=== PATIENT | female | born 1945 | race American Indian/Alaskan Native ===

== ENCOUNTER 2016-11-28 07:30 | Emergency (ER) | payer MEDICARE ==
[2016-11-28] MEDS ORDERED: NORCO 5/325 PO ONE (09:43)
--- NOTE | 2016-11-28 09:43 | Emergency Department Report ---
ED Fall HPI - General Chief Complaint: Fall Stated Complaint: INJURY FROM FALL Time Seen by Provider: 11/28/16 09:01 Source: patient, family Mode of arrival: Ambulatory - History of Present Illness Initial Comments: Patient here with family and she reports that she stumbled and fell while stepping down and walking approximately 2 weeks ago. She is complaining the pain in her hips and pelvic area and also complaining the lower back pain. Patient is ambulatory. She denies any blood in the urine or stool. Denies any loss of bowel or bladder control. Denies any head injury. Denies any numbness or tingling to extremities. Denies any chest pain or shortness of breath. 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) Fall Witnessed: yes, by family Place Fall Occurred: home Loss of Consciousness: none Prolonged Down Time?: no Symptoms Prior to Fall: none Location: back, pelvis (pelvis and bilateral hip) Severity: moderate Severity scale (0 -10): 6 Quality: aching Context: tripped/slipped Associated Symptoms: denies: headache, neck pain, numbness, weakness, chest paint, shortness of breath, abdominal pain, hematuria, unable to walk, lightheaded, vertigo, confusion - Related Data Home Medications Medication Instructions Recorded Confirmed Last Taken Clopidogrel [Plavix] 75 mg PO DAILY 09/11/14 07/19/15 02/14/16 Gabapentin 300 mg PO BID 09/11/14 07/19/15 02/19/16 Insulin NPH Hum/Reg Insulin Hm 45 units SQ BID 09/11/14 07/19/15 02/19/16 [HumuLIN 70-30 Vial] Ipratropium/Albuterol Sulfate 1 spray IH QID PRN 07/19/15 07/19/15 02/19/16 [Combivent Respimat] Lisinopril [Zestril TAB] 20 mg PO BID 07/19/15 07/19/15 02/19/16 traMADol [Ultram 50 MG tab] 50 mg PO PRN 07/19/15 07/19/15 02/19/16 Previous Rx's Medication Instructions Recorded Last Taken Type Nitroglycerin [Nitrostat] 0.4 mg SL Q5M #100 tab 09/20/14 12/03/15 Rx Aspirin [Aspirin BABY CHEW TAB] 81 mg PO QDAY #30 tab.chew 09/21/14 02/16/16 Rx Furosemide [Lasix TAB] 20 mg PO QDAY #30 tablet 09/21/14 02/19/16 Rx Lactobacillus Acidophil [Lactinex] 1 each PO TID #30 tablet 07/24/15 02/19/16 Rx Levofloxacin [Levaquin TAB] 750 mg PO QDAY #10 tablet 07/24/15 02/19/16 Rx Metoprolol [Lopressor TAB] 12.5 mg PO BID #30 tablet 07/24/15 02/19/16 Rx Sulfamethoxazole/Trimethoprim 1 each PO BID #20 tablet 07/24/15 02/19/16 Rx [Bactrim DS TAB] metroNIDAZOLE [Flagyl TAB] 500 mg PO Q8H #30 tablet 07/24/15 02/19/16 Rx predniSONE [Deltasone] 5 mg PO QDAY #14 tab 11/28/16 Unknown Rx traMADol [Ultram 50 MG tab] 50 mg PO Q6HR PRN #20 tablet 11/28/16 Unknown Rx Allergies Allergy/AdvReac Type Severity Reaction Status Date / Time atorvastatin calcium Allergy Unknown Verified 11/28/16 08:03 [From Lipitor] Iodinated Contrast Media - Allergy Unknown Verified 11/28/16 08:03 IV Dye Penicillins Allergy Unknown Verified 11/28/16 08:03 tomato Allergy Unknown Verified 11/28/16 08:03 ED Review of Systems ROS: Stated complaint: INJURY FROM FALL Other details as noted in HPI Comment: All other systems reviewed and negative Constitutional: denies: chills, fever Eyes: denies: vision change ENT: denies: ear pain, hearing loss Respiratory: no symptoms reported Cardiovascular: denies: chest pain, palpitations, edema, syncope Gastrointestinal: denies: abdominal pain, nausea, vomiting Genitourinary: denies: urgency, dysuria, frequency, hematuria Musculoskeletal: back pain, arthralgia Skin: denies: rash Neurological: abnormal gait (abnormal gait due to pain in hips). denies: headache, numbness, paresthesias, vertigo ED Past Medical Hx - Past Medical History Previous Medical History?: Yes Hx Hypertension: Yes Hx Heart Attack/AMI: Yes Hx Congestive Heart Failure: Yes Hx Diabetes: Yes Hx GERD: Yes (GERD) Hx Renal Disease: Yes (renal stones) Hx Arthritis: Yes Hx Kidney Stones: Yes Hx COPD: Yes Hx HIV: No - Surgical History Past Surgical History?: Yes Hx Coronary Stent: Yes Hx Open Heart Surgery: Yes (CABG X2) Additional Surgical History: Open heart - Family History Family history: diabetes, hypertension - Social History Smoking Status: Never Smoker Substance Use Type: None - Medications Home Medications: Home Medications Medication Instructions Recorded Confirmed Last Taken Type Clopidogrel [Plavix] 75 mg PO DAILY 09/11/14 07/19/15 02/14/16 History Gabapentin 300 mg PO BID 09/11/14 07/19/15 02/19/16 History Insulin NPH Hum/Reg Insulin Hm 45 units SQ BID 09/11/14 07/19/15 02/19/16 History [HumuLIN 70-30 Vial] Nitroglycerin [Nitrostat] 0.4 mg SL Q5M #100 tab 09/20/14 07/19/15 12/03/15 Rx Aspirin [Aspirin BABY CHEW TAB] 81 mg PO QDAY #30 tab.chew 09/21/14 07/19/15 Rx Furosemide [Lasix TAB] 20 mg PO QDAY #30 tablet 09/21/14 07/19/15 02/19/16 Rx Ipratropium/Albuterol Sulfate 1 spray IH QID PRN 07/19/15 07/19/15 02/19/16 History [Combivent Respimat] Lisinopril [Zestril TAB] 20 mg PO BID 07/19/15 07/19/15 02/19/16 History traMADol [Ultram 50 MG tab] 50 mg PO PRN 07/19/15 07/19/15 02/19/16 History Lactobacillus Acidophil [Lactinex] 1 each PO TID #30 tablet 07/24/15 02/19/16 Rx Levofloxacin [Levaquin TAB] 750 mg PO QDAY #10 tablet 07/24/15 02/19/16 Rx Metoprolol [Lopressor TAB] 12.5 mg PO BID #30 tablet 07/24/15 02/19/16 Rx Sulfamethoxazole/Trimethoprim 1 each PO BID #20 tablet 07/24/15 02/19/16 Rx [Bactrim DS TAB] metroNIDAZOLE [Flagyl TAB] 500 mg PO Q8H #30 tablet 07/24/15 02/19/16 Rx predniSONE [Deltasone] 5 mg PO QDAY #14 tab 11/28/16 Unknown Rx traMADol [Ultram 50 MG tab] 50 mg PO Q6HR PRN #20 tablet 11/28/16 Unknown Rx ED Physical Exam - General Limitations: No Limitations General appearance: alert, in no apparent distress - Head Head exam: Present: atraumatic, normocephalic, normal inspection - Expanded Head Exam Expanded Head exam: Absent: laceration, abrasion, contusion, hematoma, racoon eyes, bustamante's sign, general tenderness, tenderness of temporal artery, CSF rhinorrhea , CSF otorrhea - Eye Eye exam: Present: normal appearance, PERRL, EOMI. Absent: periorbital swelling , periorbital tenderness Pupils: Present: normal accommodation - ENT ENT exam: Present: normal exam, normal orophraynx, mucous membranes moist, TM's normal bilaterally, normal external ear exam - Neck Neck exam: Present: normal inspection, full ROM. Absent: tenderness, meningismus, lymphadenopathy - Respiratory Respiratory exam: Present: normal lung sounds bilaterally. Absent: respiratory distress, chest wall tenderness - Cardiovascular Cardiovascular Exam: Present: regular rate, normal rhythm, normal heart sounds - GI/Abdominal GI/Abdominal exam: Present: soft, normal bowel sounds. Absent: distended, tenderness, guarding, rebound, rigid - Extremities Exam Extremities exam: Present: normal inspection, full ROM, normal capillary refill , other (nontender to palpate in both hips. No shortening of the legs. Patient will good color movement temperature and sensation to extremities. +2 pedal pulses. No neurovascular compromise. Patient able to ambulate with minimal assistance.). Absent: tenderness, pedal edema, joint swelling, calf tenderness - Back Exam Back exam: Present: normal inspection, full ROM. Absent: tenderness, CVA tenderness (R), CVA tenderness (L), muscle spasm, paraspinal tenderness, vertebral tenderness, rash noted - Expanded Back Exam Expanded Back exam: Absent: saddle anesthesia Back exam: Negative Straight Leg Raising: Left, Right - Neurological Exam Neurological exam: Present: alert, oriented X3, abnormal gait (abnormal gait due to pelvic pain), reflexes normal. Absent: motor sensory deficit - Psychiatric Psychiatric exam: Present: normal affect, normal mood - Skin Skin exam: Present: warm, dry, intact, normal color. Absent: rash ED Course Vital Signs 11/28/16 07:54 Temperature 98.8 F Pulse Rate 67 Respiratory 17 Rate Blood Pressure 201/86 O2 Sat by Pulse 100 Oximetry - Reevaluation(s) Reevaluation #1: 11/28/16 11:57 given Mcgregor 5/325 mg one tablet by mouth in emergency room which relieved her pain. ED Medical Decision Making - Radiology Data Radiology results: report reviewed X-ray of pelvic revealed no acute fracture or dislocation. x-ray lumbar spine revealed osteopenia with degenerative changes - Medical Decision Making ED course: I informed patient and her family member that x-ray of her back and pelvis area revealed no acute findings. Told her that she has some arthritis in her lower back along with osteopenia which is a precursor for osteoporosis. Informed patient that she needs to follow-up with her primary care doctor and started taking calcium and vitamin D supplements to prevent progression of osteopenia. Discharge instructions given on fall prevention an elderly, osteopenia, degenerative disc disease. Patient and family states understanding of diagnosis and treatment plan. 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 She has an appointment with her lung doctor in 2 weeks and she ran out. He says she takes 5 mg daily. Patient discharged home with prescription for Ultram and prednisone. Critical care attestation.: If time is entered above; I have spent that time in minutes in the direct care of this critically ill patient, excluding procedure time. ED Disposition Clinical Impression: Arthralgia of multiple sites, Osteopenia, Degenerative disc disease, lumbar Fall, accidental Qualifiers: Encounter type: initial encounter Qualified Code(s): W19.XXXA - Unspecified fall, initial encounter Pain in lower back Qualifiers: Chronicity: unspecified Back pain laterality: bilateral Sciatica presence: without sciatica Qualified Code(s): M54.5 - Low back pain Disposition: DISCHARGED TO HOME OR SELFCARE Is pt being admited?: No Does the pt Need Aspirin: No Condition: Stable Instructions: Degenerative Disc Disease (ED), Fall Prevention for Older Adults (ED), Arthralgia (ED) Additional Instructions: You have a condition called osteopenia which is a precursor for osteoporosis. You will need to start taking calcium and vitamin D and follow-up with primary care physician for management. Please follow-up with orthopedic doctor if he continues to have pain. Prescriptions: predniSONE [Deltasone] 5 mg PO QDAY #14 tab traMADol [Ultram 50 MG tab] 50 mg PO Q6HR PRN #20 tablet PRN Reason: Pain Referrals: PRIMARY CARE, [Primary Care Provider] - 3-5 Days GISELA GARCIA MD [Staff Physician] - 3-5 Days Forms: Accompanied Note
--- NOTE | 2016-11-28 11:47 | XRay Report ---
LUMBOSACRAL SPINE, 3 VIEWS: History: Back pain Findings: Mild osteopenia is suspected. The vertebral bodies, disk spaces and posterior elements are intact. No compression deformity or malalignment. Mild multilevel degenerative disc disease and facet arthropathy are noted. The SI joints are symmetric and unremarkable. Impression: No acute injury is identified. Osteopenia. Degenerative changes.
--- NOTE | 2016-11-28 11:47 | XRay Report ---
AP PELVIS: History: Fall with pelvic and hip pain. AP view of the pelvis shows normal pelvic contour and soft tissues. The hips are symmetric and within normal limits as are the sacroiliac joints. IMPRESSION: No acute injury is appreciated.
[2016-11-28 11:56] VITALS: BP 209/84
== END 2016-11-28 12:35 | disposition home or self-care (01) ==
LOC: ED 07:30
DX: M51.36 Other intervertebral disc degeneration, lumbar region (principal); M85.80 Other specified disorders of bone density and structure, unspecified site; M25.50 Pain in unspecified joint; I10 Essential (primary) hypertension; I25.2 Old myocardial infarction; I50.9 Heart failure, unspecified; E11.9 Type 2 diabetes mellitus without complications; K21.9 Gastro-esophageal reflux disease without esophagitis; M19.90 Unspecified osteoarthritis, unspecified site; J44.9 Chronic obstructive pulmonary disease, unspecified; Z95.1 Presence of aortocoronary bypass graft; W18.39XA Other fall on same level, initial encounter; Y93.89 Activity, other specified; Y99.8 Other external cause status; Y92.098 Other place in other non-institutional residence as the place of occurrence of the external cause
CPT/HCPCS: 72100; 72170; 99283

== ENCOUNTER 2017-09-11 08:04 | Emergency (ER) | payer MEDICARE ==
[2017-09-11 09:06] LABS: Basophils % (Auto) 0.4 % (0.0-1.8); Eosinophils % (Auto) 1.4 % (0.0-4.3); Hematocrit 41.8 % (30.3-42.9); Hemoglobin 13.4 gm/dl (10.1-14.3); Mean Corpuscular HGB Conc 32 % (30-34); Mean Corpuscular Hemoglobin 26 pg (28-32); Mean Corpuscular Volume 81 fl (79-97); Platelet Count 178 K/mm3 (140-440); Red Blood Count 5.16 M/mm3 (3.65-5.03); Red Cell Distribution Width 14.8 % (13.2-15.2)
[2017-09-11 09:16] LABS: INR 0.83 (0.87-1.13)
[2017-09-11 09:17] LABS: Partial Thromboplastin Time 23.7 Sec. (24.2-36.6)
[2017-09-11 09:22] LABS: Calcium 8.5 mg/dL (8.4-10.2); Chloride 103.7 mmol/L (98-107); Potassium 3.4 mmol/L (3.6-5.0)
--- NOTE | 2017-09-11 10:12 | Cat Scan Report ---
CT HEAD WITHOUT CONTRAST: 09/11/17 09:57 CLINICAL: Dizziness. On blood thinners. TECHNIQUE: 2.5-mm noncontrast scans. COMPARISON:None FINDINGS: The ventricles and sulci are normal for age.Moderate bilateral periventricular white matter hypodensities. Small right frontal white matter chronic lacunar infarct. A right thalamic lacunar infarct is of uncertain age. No mass or mass effect. No hemorrhage, edema or extra-axial collection. The sinuses are clear. Normal orbits and soft tissues. The calvarium and skull base are intact. IMPRESSION: A right thalamic lacunar infarct of uncertain age. Chronic right frontal white matter or infarct and moderate chronic white matter microangiopathy. No hemorrhage.
--- NOTE | 2017-09-11 10:58 | XRay Report ---
XRAY RIGHT FEMUR TWO VIEWS: 09/11/17 08:04:00 CLINICAL: Weakness and unable to bear weight on the right leg. FINDINGS: Normal alignment at the hip and knee. Moderate osteoarthritis of the right hip. No fracture or dislocation. Vascular calcifications in otherwise normal soft tissues. The knee joint is unremarkable. No fracture. IMPRESSION: Moderate osteoarthritis of the right hip. The femur is otherwise normal.
--- NOTE | 2017-09-11 11:00 | XRay Report ---
XRAY RIGHT TIBIA AND FIBULA TWO VIEWS: 09/11/17 08:04:00 CLINICAL: Weakness and unable to bear weight. FINDINGS: No fracture or dislocation. Normal alignment at the knee and at the ankle. No knee joint effusion. Surgical clips in the medial soft tissues.No soft tissue air in the soft tissue edema. IMPRESSION: Negative study.
[2017-09-11] MEDS ORDERED: K-DUR PO ONE (12:13)
--- NOTE | 2017-09-11 12:55 | Cat Scan Report ---
CT CERVICAL SPINE WITHOUT CONTRAST:09/11/17 08:04:00 CLINICAL: Near syncope and fall with head injury. TECHNIQUE: Volumetric acquisition and 1.25-mm scan reconstructions without contrast. Sagittal and coronal reformats were performed. FINDINGS: Normal vertebral body height, alignment and disk spaces. No fracture or subluxation. Minimal degenerative change. No apparent disc protrusions or bulges.Normal soft tissues and airway. IMPRESSION: Negative with no apparent traumatic injury.
--- NOTE | 2017-09-11 13:27 | XRay Report ---
X-RAY AP PELVIS ONE VIEW: 09/11/17 08:04:00 CLINICAL: Pain. FINDINGS: The pelvic bones are intact. Moderate arthritis of the hips. Bilateral SI joint sclerosis with no erosions. No fracture or dislocation. Vascular calcifications. IMPRESSION: Moderate bilateral hip arthritis. Bilateral sacroiliitis without erosions.
--- NOTE | 2017-09-11 13:55 | Emergency Department Report ---
ED Dizziness HPI - General Chief Complaint: Neuro Symptoms/Deficit Stated Complaint: FALL Time Seen by Provider: 09/11/17 11:23 Source: patient Mode of arrival: Ambulatory Limitations: No Limitations - History of Present Illness Initial Comments: 71-year-old female with a past medical history of CABG, CHF, COPD, CVA, diabetes , GERD, and hypertension presents to the hospital with complaints of near syncopal episode with fall. Patient lives alone and her son came to visit. Upon ambulating to the door to let him and she felt dizzy to the point of falling and striking the back of her head on the door. Her son witnessed the episode and no LOC reported. Upon trying to stand patient felt like a pulling sensation in her right leg like it was giving out on her and she is complaining of mild headache after fall to the back of her head. Patient complains of chronic intermittent chest pain at is unchanged from her baseline. Patient denies shortness of breath, nausea, vomiting, or diaphoresis. Patient saw her outpatient section crews activities clerk wanted September 08 and had her metoprolol ER increased from 25 mg to 50 mg. Since this increased patient has been sleeping more and having dizzy episodes. Butt Presser group: Dr. Davin Gaming with [facility]. - Related Data Home Medications Medication Instructions Recorded Confirmed Last Taken Clopidogrel [Plavix] 75 mg PO DAILY 09/11/14 07/19/15 02/14/16 Gabapentin 300 mg PO BID 09/11/14 07/19/15 02/19/16 Insulin NPH Hum/Reg Insulin Hm 45 units SQ BID 09/11/14 07/19/15 02/19/16 [HumuLIN 70-30 Vial] Ipratropium/Albuterol Sulfate 1 spray IH QID PRN 07/19/15 07/19/15 02/19/16 [Combivent Respimat] Lisinopril [Zestril TAB] 20 mg PO BID 07/19/15 07/19/15 02/19/16 traMADol [Ultram 50 MG tab] 50 mg PO PRN 07/19/15 07/19/15 02/19/16 Previous Rx's Medication Instructions Recorded Last Taken Type Nitroglycerin [Nitrostat] 0.4 mg SL Q5M #100 tab 09/20/14 12/03/15 Rx Aspirin [Aspirin BABY CHEW TAB] 81 mg PO QDAY #30 tab.chew 09/21/14 02/16/16 Rx Furosemide [Lasix TAB] 20 mg PO QDAY #30 tablet 09/21/14 02/19/16 Rx Lactobacillus Acidophil [Lactinex] 1 each PO TID #30 tablet 07/24/15 02/19/16 Rx Levofloxacin [Levaquin TAB] 750 mg PO QDAY #10 tablet 07/24/15 02/19/16 Rx Metoprolol [Lopressor TAB] 12.5 mg PO BID #30 tablet 07/24/15 02/19/16 Rx Sulfamethoxazole/Trimethoprim 1 each PO BID #20 tablet 07/24/15 02/19/16 Rx [Bactrim DS TAB] metroNIDAZOLE [Flagyl TAB] 500 mg PO Q8H #30 tablet 07/24/15 02/19/16 Rx predniSONE [Deltasone] 5 mg PO QDAY #14 tab 11/28/16 Unknown Rx traMADol [Ultram 50 MG tab] 50 mg PO Q6HR PRN #20 tablet 11/28/16 Unknown Rx Allergies Allergy/AdvReac Type Severity Reaction Status Date / Time atorvastatin calcium Allergy Unknown Verified 11/28/16 08:03 [From Lipitor] Iodinated Contrast- Oral and Allergy Unknown Verified 11/28/16 08:03 IV Dye [Iodinated Contrast Media - IV Dye] Penicillins Allergy Unknown Verified 11/28/16 08:03 tomato Allergy Unknown Verified 11/28/16 08:03 ED Review of Systems ROS: Stated complaint: FALL Other details as noted in HPI Comment: All other systems reviewed and negative Other: Constitutional: No fevers chills Eyes: No eye pain visual changes ENT: No ear pain or throat pain Neck: Denies pain Respiratory: Denies cough wheezing shortness of breath Cardiovascular: Denies palpitations GI: Denies abdominal pain, nausea, vomiting, diarrhea : Denies dysuria Musculoskeletal: As per HPI Skin: Denies rash, lesions, erythema Neurologic: Denies numbness, weakness Psychiatric: Denies suicidal ideation, hallucinations ED Past Medical Hx - Past Medical History Previous Medical History?: Yes Hx Hypertension: Yes Hx CVA: Yes Hx Heart Attack/AMI: Yes Hx Congestive Heart Failure: Yes Hx Diabetes: Yes Hx GERD: Yes (GERD) Hx Liver Disease: No Hx Renal Disease: Yes (renal stones) Hx Arthritis: Yes Hx Kidney Stones: Yes Hx Asthma: No Hx COPD: Yes Hx HIV: No - Surgical History Past Surgical History?: Yes Hx Coronary Stent: Yes Hx Open Heart Surgery: Yes (CABG X2) Additional Surgical History: Open heart - Social History Smoking Status: Never Smoker Substance Use Type: None - Medications Home Medications: Home Medications Medication Instructions Recorded Confirmed Last Taken Type Clopidogrel [Plavix] 75 mg PO DAILY 09/11/14 07/19/15 02/14/16 History Gabapentin 300 mg PO BID 09/11/14 07/19/15 02/19/16 History Insulin NPH Hum/Reg Insulin Hm 45 units SQ BID 09/11/14 07/19/15 02/19/16 History [HumuLIN 70-30 Vial] Nitroglycerin [Nitrostat] 0.4 mg SL Q5M #100 tab 09/20/14 07/19/15 12/03/15 Rx Aspirin [Aspirin BABY CHEW TAB] 81 mg PO QDAY #30 tab.chew 09/21/14 07/19/15 Rx Furosemide [Lasix TAB] 20 mg PO QDAY #30 tablet 09/21/14 07/19/15 02/19/16 Rx Ipratropium/Albuterol Sulfate 1 spray IH QID PRN 07/19/15 07/19/15 02/19/16 History [Combivent Respimat] Lisinopril [Zestril TAB] 20 mg PO BID 07/19/15 07/19/15 02/19/16 History traMADol [Ultram 50 MG tab] 50 mg PO PRN 07/19/15 07/19/15 02/19/16 History Lactobacillus Acidophil [Lactinex] 1 each PO TID #30 tablet 07/24/15 02/19/16 Rx Levofloxacin [Levaquin TAB] 750 mg PO QDAY #10 tablet 07/24/15 02/19/16 Rx Metoprolol [Lopressor TAB] 12.5 mg PO BID #30 tablet 07/24/15 02/19/16 Rx Sulfamethoxazole/Trimethoprim 1 each PO BID #20 tablet 07/24/15 02/19/16 Rx [Bactrim DS TAB] metroNIDAZOLE [Flagyl TAB] 500 mg PO Q8H #30 tablet 07/24/15 02/19/16 Rx predniSONE [Deltasone] 5 mg PO QDAY #14 tab 11/28/16 Unknown Rx traMADol [Ultram 50 MG tab] 50 mg PO Q6HR PRN #20 tablet 11/28/16 Unknown Rx ED Physical Exam - General Limitations: No Limitations - Other Other exam information: General: No limitations, patient is alert in no acute distress Head exam: Atraumatic, normocephalic Eyes exam: Normal appearance, pupils equal reactive to light, extraocular movements intact ENT: Moist mucous membrane, normal oropharynx Neck exam: Normal inspection, full range of motion, no meningismus nontender Respiratory exam: Clear to auscultation bilateral, no wheezes, rales, crackles Cardiovascular: Normal rate and rhythm, normal heart sounds, positive sternotomy scar Abdomen: Soft, nondistended, and nontender, with normal bowel sounds, no rebound, or guarding Extremity: Full range of motion normal inspection no deformity, full range of motion of hip, knee, and ankle without discomfort. Mild tenderness to right thigh area. No deformity. Back: Normal Inspection, full range of motion, no tenderness Neurologic: Alert, oriented x3, cranial nerves intact, no motor or sensory deficit Psychiatric: normal affect, normal mood Skin: Warm, dry, intact ED Course Vital Signs 09/11/17 09/11/17 09:03 11:47 Temperature 98.4 F Pulse Rate 96 H 70 Respiratory 16 18 Rate Blood Pressure 168/61 192/65 [Left] O2 Sat by Pulse 100 100 Oximetry - Reevaluation(s) Reevaluation #1: 09/11/17 13:59 Awaiting urine collection and patient refused catheterization ED Medical Decision Making - Lab Data Result diagrams: 09/11/17 08:53 09/11/17 08:53 Lab Results 09/11/17 09/11/17 09/11/17 Range/Units 08:53 08:53 08:53 WBC 9.0 (4.5-11.0) K/mm3 RBC 5.16 H (3.65-5.03) M/mm3 Hgb 13.4 (10.1-14.3) gm/dl Hct 41.8 (30.3-42.9) % MCV 81 (79-97) fl MCH 26 L (28-32) pg MCHC 32 (30-34) % RDW 14.8 (13.2-15.2) % Plt Count 178 (140-440) K/mm3 Lymph % (Auto) 28.2 (13.4-35.0) % [place] % (Auto) 8.0 H (0.0-7.3) % Eos % (Auto) 1.4 (0.0-4.3) % Baso % (Auto) 0.4 (0.0-1.8) % Lymph # 2.5 (1.2-5.4) K/mm3 [place] # 0.7 (0.0-0.8) K/mm3 Eos # 0.1 (0.0-0.4) K/mm3 Baso # 0.0 (0.0-0.1) K/mm3 Seg Neutrophils % 62.0 (40.0-70.0) % Seg Neutrophils # 5.5 (1.8-7.7) K/mm3 PT 11.8 L (12.2-14.9) Sec. INR 0.83 L (0.87-1.13) APTT 23.7 L (24.2-36.6) Sec. Sodium 142 (137-145) mmol/L Potassium 3.4 L (3.6-5.0) mmol/L Chloride 103.7 (98-107) mmol/L Carbon Dioxide 28 (22-30) mmol/L Anion Gap 14 mmol/L BUN 17 (7-17) mg/dL Creatinine 1.3 H (0.7-1.2) mg/dL Estimated GFR 49 ml/min BUN/Creatinine Ratio 13 % Glucose 65 (65-100) mg/dL Calcium 8.5 (8.4-10.2) mg/dL Magnesium (1.7-2.3) mg/dL Troponin T (0.00-0.029) ng/mL 09/11/17 09/11/17 Range/Units 08:53 08:53 WBC (4.5-11.0) K/mm3 RBC (3.65-5.03) M/mm3 Hgb (10.1-14.3) gm/dl Hct (30.3-42.9) % MCV (79-97) fl MCH (28-32) pg MCHC (30-34) % RDW (13.2-15.2) % Plt Count (140-440) K/mm3 Lymph % (Auto) (13.4-35.0) % [place] % (Auto) (0.0-7.3) % Eos % (Auto) (0.0-4.3) % Baso % (Auto) (0.0-1.8) % Lymph # (1.2-5.4) K/mm3 [place] # (0.0-0.8) K/mm3 Eos # (0.0-0.4) K/mm3 Baso # (0.0-0.1) K/mm3 Seg Neutrophils % (40.0-70.0) % Seg Neutrophils # (1.8-7.7) K/mm3 PT (12.2-14.9) Sec. INR (0.87-1.13) APTT (24.2-36.6) Sec. Sodium (137-145) mmol/L Potassium (3.6-5.0) mmol/L Chloride (98-107) mmol/L Carbon Dioxide (22-30) mmol/L Anion Gap mmol/L BUN (7-17) mg/dL Creatinine (0.7-1.2) mg/dL Estimated GFR ml/min BUN/Creatinine Ratio % Glucose (65-100) mg/dL Calcium (8.4-10.2) mg/dL Magnesium 2.10 (1.7-2.3) mg/dL Troponin T < 0.010 (0.00-0.029) ng/mL - EKG Data -: EKG Interpreted by Me (old anterolateral infarct, inferior infarct) EKG shows normal: sinus rhythm, axis (264), QRS complexes (96), ST-T waves ( lateral T-wave inversion) Rate: normal - Radiology Data Radiology results: report reviewed Read by radiologist CT cervical spine: No acute findings X-ray pelvis: Moderate bilateral hip arthritis. Bilateral sacroiliitis without erosions CT head non-contrast: A right thalamus lacunar infarct of uncertain age. Chronic right frontal white matter or infarct in moderate chronic white matter microangiopathic. No hemorrhage X-ray right femur: Moderate osteoarthritis of the right hip. Otherwise normal Right tib-fib x-ray: Negative study - Medical Decision Making Plan to admit patient to the hospital for near syncopal episode with associated fall. Episodes of dizziness corresponds with increased metoprolol dose. EKG shows mild bradycardia with a heart rate of 59 but vital signs reflect a heart rate above 60. No signs of hypotension. Patient received a by mouth dose of potassium for mild hypokalemia Patient refuses admission. I explained my concern about her near syncopal episode and possible medication reaction. Patient states she wants to go home. 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 Urine was not obtained prior to leaving the department. Patient notified a risk of worsening symptoms, syncope, heart arrhythmia, and possible . - Differential Diagnosis UTI, anemia, bradycardia, IN, unstable angina, ICH, fracture, contusion Critical Care Time: No Critical care attestation.: If time is entered above; I have spent that time in minutes in the direct care of this critically ill patient, excluding procedure time. ED Disposition Clinical Impression: Near syncope, Hx of CABG, Diabetes, Hypokalemia, HTN (hypertension) Disposition: LEFT AGAINST MED ADVICE Is pt being admited?: No Condition: Stable Instructions: Hypertension (ED), Lightheadedness (ED), Hypokalemia (ED) Additional Instructions: You have refused admission at this time. It is very important that you will up with your primary care doctor and section crews activities clerk as soon as possible for further treatment. Return if symptoms worsen Referrals: PRIMARY MD BETSY [Primary Care Provider] - 24 Hours LUIS GAMING MD [Staff Physician] - 24 Hours Time of Disposition: 14:04 (Dr steel/hosp)
[2017-09-11] MEDS ORDERED: NORCO 5/325 PO ONE (15:15)
[2017-09-11 15:31] VITALS: BP 197/83
== END 2017-09-11 15:35 | disposition left against medical advice (07) ==
LOC: ED 08:04
DX: R55 Syncope and collapse (principal); E87.6 Hypokalemia; I13.0 Hypertensive heart and chronic kidney disease with heart failure and stage 1 through stage 4 chronic kidney disease, or unspecified chronic kidney disease; E11.22 Type 2 diabetes mellitus with diabetic chronic kidney disease; N18.9 Chronic kidney disease, unspecified; I50.9 Heart failure, unspecified; I25.2 Old myocardial infarction; M19.90 Unspecified osteoarthritis, unspecified site; J44.9 Chronic obstructive pulmonary disease, unspecified; Z86.73 Personal history of transient ischemic attack (TIA), and cerebral infarction without residual deficits; Z95.1 Presence of aortocoronary bypass graft; Z95.818 Presence of other cardiac implants and grafts; Z88.8 Allergy status to other drugs, medicaments and biological substances; Z91.041 Radiographic dye allergy status
CPT/HCPCS: 36415; 70450; 72125; 72170; 80048; 83735; 84484; 85025; 85610; 85730; 93005; 93010; 99284

== ENCOUNTER 2017-10-06 13:32 | Observation (INO) | payer MEDICARE ==
[2017-10-06] MEDS ORDERED: NACL 0.9% 1000 ML 1,000 ML IV ONE ×2 (13:35→13:37)
--- NOTE | 2017-10-06 13:46 | Emergency Department Report ---
ED Chest Pain HPI - General Chief Complaint: Chest Pain Stated Complaint: STEMI Time Seen by Provider: 10/06/17 13:35 Source: patient, EMS Mode of arrival: Stretcher Limitations: No Limitations - History of Present Illness Initial Comments: This is a 71-year-old [place] female presents to the emergency department by EMS from home with complaint of chest pain has been going on since 8 AM this morning. It is a crushing chest pain sensation that is left sided. The patient has some chronic intermittent chest pains but it worsened this morning. It is associated with some nausea and vomiting and some shortness of breath. She has a history of CHF, hypertension, hyperlipidemia, diabetes and coronary artery disease with previous PR and bypass surgery. She follows with [facility] cardiology. She received an aspirin in route. She denies any tobacco or illicit drug use or abuse. - Related Data Home Medications Medication Instructions Recorded Confirmed Last Taken Clopidogrel [Plavix] 75 mg PO DAILY 09/11/14 07/19/15 02/14/16 Gabapentin 300 mg PO BID 09/11/14 07/19/15 02/19/16 Insulin NPH Hum/Reg Insulin Hm 45 units SQ BID 09/11/14 07/19/15 02/19/16 [HumuLIN 70-30 Vial] Ipratropium/Albuterol Sulfate 1 spray IH QID PRN 07/19/15 07/19/15 02/19/16 [Combivent Respimat] Lisinopril [Zestril TAB] 20 mg PO BID 07/19/15 07/19/15 02/19/16 traMADol [Ultram 50 MG tab] 50 mg PO PRN 07/19/15 07/19/15 02/19/16 Previous Rx's Medication Instructions Recorded Last Taken Type Nitroglycerin [Nitrostat] 0.4 mg SL Q5M #100 tab 09/20/14 12/03/15 Rx Aspirin [Aspirin BABY CHEW TAB] 81 mg PO QDAY #30 tab.chew 09/21/14 02/16/16 Rx Furosemide [Lasix TAB] 20 mg PO QDAY #30 tablet 09/21/14 02/19/16 Rx Lactobacillus Acidophil [Lactinex] 1 each PO TID #30 tablet 07/24/15 02/19/16 Rx Levofloxacin [Levaquin TAB] 750 mg PO QDAY #10 tablet 07/24/15 02/19/16 Rx Metoprolol [Lopressor TAB] 12.5 mg PO BID #30 tablet 07/24/15 02/19/16 Rx Sulfamethoxazole/Trimethoprim 1 each PO BID #20 tablet 07/24/15 02/19/16 Rx [Bactrim DS TAB] metroNIDAZOLE [Flagyl TAB] 500 mg PO Q8H #30 tablet 07/24/15 02/19/16 Rx predniSONE [Deltasone] 5 mg PO QDAY #14 tab 11/28/16 Unknown Rx traMADol [Ultram 50 MG tab] 50 mg PO Q6HR PRN #20 tablet 11/28/16 Unknown Rx Allergies Allergy/AdvReac Type Severity Reaction Status Date / Time atorvastatin calcium Allergy Unknown Verified 10/06/17 13:37 [From Lipitor] Iodinated Contrast- Oral and Allergy Unknown Verified 10/06/17 13:37 IV Dye [Iodinated Contrast Media - IV Dye] Penicillins Allergy Unknown Verified 10/06/17 13:37 tomato Allergy Unknown Verified 10/06/17 13:37 Heart Score - HEART Score History: Highly suspicious EKG: Significant ST-depression Age: > 65 Risk factors: > 3 risk factors or hx of atherosclerotic disease Troponin: > 3x normal limit HEART Score: 10 - Critical Actions Critical Actions: >7 pts:50-65% risk of adverse cardiac event. Early invasive measures ED Review of Systems ROS: Stated complaint: STEMI Other details as noted in HPI Comment: All other systems reviewed and negative Constitutional: denies: chills, fever Eyes: denies: eye pain, eye discharge, vision change ENT: denies: ear pain, throat pain Respiratory: shortness of breath. denies: cough Cardiovascular: chest pain. denies: palpitations Gastrointestinal: nausea, vomiting. denies: abdominal pain Genitourinary: denies: urgency, dysuria, discharge Musculoskeletal: denies: back pain, joint swelling, arthralgia Skin: denies: rash, lesions Neurological: denies: headache, weakness, paresthesias ED Past Medical Hx - Past Medical History Hx Hypertension: Yes Hx CVA: Yes Hx Heart Attack/AMI: Yes Hx Congestive Heart Failure: Yes Hx Diabetes: Yes Hx GERD: Yes (GERD) Hx Liver Disease: No Hx Renal Disease: Yes (renal stones) Hx Arthritis: Yes Hx Kidney Stones: Yes Hx Asthma: No Hx COPD: Yes Hx HIV: No - Surgical History Hx Coronary Stent: Yes Hx Open Heart Surgery: Yes (CABG X2) Additional Surgical History: Open heart - Social History Smoking Status: Never Smoker Substance Use Type: None - Medications Home Medications: Home Medications Medication Instructions Recorded Confirmed Last Taken Type Clopidogrel [Plavix] 75 mg PO DAILY 09/11/14 07/19/15 02/14/16 History Gabapentin 300 mg PO BID 09/11/14 07/19/15 02/19/16 History Insulin NPH Hum/Reg Insulin Hm 45 units SQ BID 09/11/14 07/19/15 02/19/16 History [HumuLIN 70-30 Vial] Nitroglycerin [Nitrostat] 0.4 mg SL Q5M #100 tab 09/20/14 07/19/15 12/03/15 Rx Aspirin [Aspirin BABY CHEW TAB] 81 mg PO QDAY #30 tab.chew 09/21/14 07/19/15 Rx Furosemide [Lasix TAB] 20 mg PO QDAY #30 tablet 09/21/14 07/19/15 02/19/16 Rx Ipratropium/Albuterol Sulfate 1 spray IH QID PRN 07/19/15 07/19/15 02/19/16 History [Combivent Respimat] Lisinopril [Zestril TAB] 20 mg PO BID 07/19/15 07/19/15 02/19/16 History traMADol [Ultram 50 MG tab] 50 mg PO PRN 07/19/15 07/19/15 02/19/16 History Lactobacillus Acidophil [Lactinex] 1 each PO TID #30 tablet 07/24/15 02/19/16 Rx Levofloxacin [Levaquin TAB] 750 mg PO QDAY #10 tablet 07/24/15 02/19/16 Rx Metoprolol [Lopressor TAB] 12.5 mg PO BID #30 tablet 07/24/15 02/19/16 Rx Sulfamethoxazole/Trimethoprim 1 each PO BID #20 tablet 07/24/15 02/19/16 Rx [Bactrim DS TAB] metroNIDAZOLE [Flagyl TAB] 500 mg PO Q8H #30 tablet 07/24/15 02/19/16 Rx predniSONE [Deltasone] 5 mg PO QDAY #14 tab 11/28/16 Unknown Rx traMADol [Ultram 50 MG tab] 50 mg PO Q6HR PRN #20 tablet 11/28/16 Unknown Rx ED Physical Exam - General Limitations: No Limitations - Other Other exam information: GENERAL: The patient is well-developed well-nourished. HENT: Normocephalic. Atraumatic. Patient has moist mucous membranes. EYES: Extraocular motions are intact. Pupils equal reactive to light bilaterally. NECK: Supple. Trachea is midline. CHEST/LUNGS: Clear to auscultation. There is no respiratory distress noted. HEART/CARDIOVASCULAR: Regular. There is no tachycardia. There is no murmur. ABDOMEN: Abdomen is soft, nontender. Patient has normal bowel sounds. There is no abdominal distention. SKIN: Skin is warm and dry. NEURO: The patient is awake, alert, and oriented. The patient is cooperative. The patient has no focal neurologic deficits. The patient has normal speech. MUSCULOSKELETAL: There is no tenderness or deformity. There is no limitation range of motion. There is no evidence of acute injury. ED Course Vital Signs 10/06/17 10/06/17 10/06/17 13:38 15:06 15:15 Temperature 97.8 F 97.6 F Pulse Rate 58 L 52 L 54 L Respiratory 20 11 L 10 L Rate Blood Pressure 175/79 120/60 138/65 O2 Sat by Pulse 96 96 94 Oximetry 10/06/17 10/06/17 10/06/17 15:20 15:25 15:30 Temperature Pulse Rate 54 L 53 L 53 L Respiratory 10 L 11 L 11 L Rate Blood Pressure 138/65 153/75 153/75 O2 Sat by Pulse 94 93 93 Oximetry 10/06/17 10/06/17 15:45 16:59 Temperature Pulse Rate 57 L 58 L Respiratory 14 Rate Blood Pressure 157/58 145/75 O2 Sat by Pulse 94 89 Oximetry - Consultations Consultation #1: 10/06/17 13:44 Dr Martinez happens to be in the ED when Code STEMI called. He is unsure if EKG looks like a true STEMI but plans to take her to the manufacturing laborer immediately. KAVON score - Kavon Score Age > 65: (1) Yes Aspirin use within the Past 7 Days: (0) No 3 or more CAD Risk Factors: (1) Yes 2 or more Angina events in past 24 hrs: (1) Yes Known CAD with more than 50% Stenosis: (0) No Elevated Cardiac Markers: (1) Yes ST Deviation Greater than 0.5mm: (1) Yes KAVON Score: 5 ED Medical Decision Making - Lab Data Result diagrams: 10/06/17 17:19 10/06/17 13:32 - EKG Data -: EKG Interpreted by Me EKG shows normal: sinus rhythm, axis (left axis deviation), intervals ( prolonged QTC), QRS complexes (LVH, inferior Q waves), ST-T waves (there is some ST elevation to the inferior leads with very mild anterior depression) Rate: normal - EKG Data When compared to previous EKG there are: changes noted (previous inferior q waves unchanged, but concerning for acute STEMI) Interpretation: acute PR - Radiology Data Radiology results: image reviewed interpreted by me: Chest x-ray does not show any acute process. There are no pleural effusions, obvious pneumonia and there is no pneumothorax. - Medical Decision Making The patient presented with acute on chronic chest pain but describes the chest pain this morning as being much more intense and "crushing." EKG showed concern for inferior wall ST elevation PR. Code STEMI was called and the patient was taken to Litigation Secretary. It does not appears that they saw any significant vessel disease that required stenting or ballooning. First troponin was negative but the second troponin was elevated at 0.17. Patient admitted by the cardiology service. - Differential Diagnosis STEMI, NSTEMI, PE, Pneumonia Critical Care Time: No Critical care attestation.: If time is entered above; I have spent that time in minutes in the direct care of this critically ill patient, excluding procedure time. ED Disposition Clinical Impression: Myocardial infarction Qualifiers: Myocardial infarction ST status: ST elevation myocardial infarction Involved coronary artery: unspecified coronary artery Qualified Code(s): I21.3 - ST elevation (STEMI) myocardial infarction of unspecified site CAD (coronary artery disease) Qualifiers: Coronary Disease-Associated Artery/Lesion type: unspecified vessel or lesion type [place] vs. transplanted heart: [place] heart Associated angina: angina presence unspecified Qualified Code(s): I25.10 - Atherosclerotic heart disease of [place] coronary artery without angina pectoris Chest pain Qualifiers: Chest pain type: chest pain due to myocardial ischemia Disposition: OP ADMIT IP TO THIS HOSP Is pt being admited?: Yes Condition: Fair Time of Disposition: 19:14
[2017-10-06 13:48] LABS: Basophils % (Auto) 0.2 % (0.0-1.8); Eosinophils # (Auto) 0.1 K/mm3 (0.0-0.4); Eosinophils % (Auto) 1.1 % (0.0-4.3); Hematocrit 41.8 % (30.3-42.9); Hemoglobin 13.5 gm/dl (10.1-14.3); Lymphocytes # (Auto) 2.1 K/mm3 (1.2-5.4); Lymphocytes % (Auto) 29.8 % (13.4-35.0); Mean Corpuscular HGB Conc 32 % (30-34); Mean Corpuscular Hemoglobin 26 pg (28-32); Mean Corpuscular Volume 81 fl (79-97); Monocytes # (Auto) 0.7 K/mm3 (0.0-0.8); Monocytes % (Auto) 9.9 % (0.0-7.3); Platelet Count 172 K/mm3 (140-440); Red Blood Count 5.15 M/mm3 (3.65-5.03); Red Cell Distribution Width 15.7 % (13.2-15.2)
[2017-10-06] MEDS ORDERED: HEPARIN/NS 5000 UNIT/500ML(CATH LAB) 1,000 ML IR ONE (13:51)
[2017-10-06] MEDS ORDERED: NACL 0.9% 1000 ML 0 ML ONE (13:51)
[2017-10-06] MEDS ORDERED: HEPARIN 10,000 UNITS/10 ML ONE ×2 (13:51→23:03)
[2017-10-06] MEDS ORDERED: XYLOCAINE 2% INFILTRATI ONE (13:52)
--- NOTE | 2017-10-06 13:53 | History and Physical Report ---
History of Present Illness Date of examination: 10/06/17 Date of admission: 10/06/17 Chief complaint: chest pain History of present illness: The patient is a 71 year old female who is followed by Dr. Mccullough in the office with a history of CAD s/p CABG, HTN, DM, HLD who presented with complaints of chest pain ongoing since yesterday but worse today. It is a crushing chest pain sensation that is left sided. It is associated with some nausea and vomiting and some shortness of breath. EKG showed sinus rhythm with inferior ST elevation and mild anterior depression. 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 Martinez on an emergent basis. Past History Past Medical History: CAD, diabetes, hypertension, hyperlipidemia Past Surgical History: CABG Social history: denies: smoking, alcohol abuse, prescription drug abuse Family history: no significant family history Medications and Allergies Allergies Allergy/AdvReac Type Severity Reaction Status Date / Time atorvastatin calcium Allergy Unknown Verified 10/06/17 13:37 [From Lipitor] Iodinated Contrast- Oral and Allergy Unknown Verified 10/06/17 13:37 IV Dye [Iodinated Contrast Media - IV Dye] Penicillins Allergy Unknown Verified 10/06/17 13:37 tomato Allergy Unknown Verified 10/06/17 13:37 Home Medications Medication Instructions Recorded Confirmed Last Taken Type Clopidogrel [Plavix] 75 mg PO DAILY 09/11/14 07/19/15 02/14/16 History Gabapentin 300 mg PO BID 09/11/14 07/19/15 02/19/16 History Insulin NPH Hum/Reg Insulin Hm 45 units SQ BID 09/11/14 07/19/15 02/19/16 History [HumuLIN 70-30 Vial] Nitroglycerin [Nitrostat] 0.4 mg SL Q5M #100 tab 09/20/14 07/19/15 12/03/15 Rx Aspirin [Aspirin BABY CHEW TAB] 81 mg PO QDAY #30 tab.chew 09/21/14 07/19/15 Rx Furosemide [Lasix TAB] 20 mg PO QDAY #30 tablet 09/21/14 07/19/15 02/19/16 Rx Ipratropium/Albuterol Sulfate 1 spray IH QID PRN 07/19/15 07/19/15 02/19/16 History [Combivent Respimat] Lisinopril [Zestril TAB] 20 mg PO BID 07/19/15 07/19/15 02/19/16 History traMADol [Ultram 50 MG tab] 50 mg PO PRN 07/19/15 07/19/15 02/19/16 History Lactobacillus Acidophil [Lactinex] 1 each PO TID #30 tablet 07/24/15 02/19/16 Rx Levofloxacin [Levaquin TAB] 750 mg PO QDAY #10 tablet 07/24/15 02/19/16 Rx Metoprolol [Lopressor TAB] 12.5 mg PO BID #30 tablet 07/24/15 02/19/16 Rx Sulfamethoxazole/Trimethoprim 1 each PO BID #20 tablet 07/24/15 02/19/16 Rx [Bactrim DS TAB] metroNIDAZOLE [Flagyl TAB] 500 mg PO Q8H #30 tablet 07/24/15 02/19/16 Rx predniSONE [Deltasone] 5 mg PO QDAY #14 tab 11/28/16 Unknown Rx traMADol [Ultram 50 MG tab] 50 mg PO Q6HR PRN #20 tablet 11/28/16 Unknown Rx Active Meds: Active Medications Heparin Sodium (Porcine) (Heparin 10,000 Units/10 Ml) 4,000 unit IV ONCE ONE Stop: 10/06/17 14:01 Last Admin: 10/06/17 13:44 Dose: 4,000 unit Sodium Chloride (Nacl 0.9% 1000 Ml) 1,000 mls @ 42 mls/hr IV ONCE ONE Stop: 10/07/17 13:23 Heparin Sodium/Sodium Chloride (Heparin/ 0.45% Nacl-25,000 Unit/500 Ml) 25,000 unit in 500 mls @ 15 mls/hr IV TITRATE DEREJE; 750 UNITS/HR PRN Reason: Protocol Sodium Chloride (Nacl 0.9% 1000 Ml) 1,000 mls @ 42 mls/hr IV ONCE ONE Stop: 10/07/17 13:25 Review of Systems Constitutional: no fever, no chills Ears, nose, mouth and throat: no nasal congestion, no nasal discharge, no sinus pressure Cardiovascular: chest pain, shortness of breath Respiratory: shortness of breath, no cough, no congestion, no wheezing Gastrointestinal: nausea, vomiting Genitourinary Female: no dysuria, no urgency Musculoskeletal: no neck stiffness, no neck pain, no myalgias Integumentary: no rash, no pruritis Neurological: no parathesias, no numbness, no tingling Endocrine: no cold intolerance, no heat intolerance Hematologic/Lymphatic: no easy bruising, no easy bleeding Allergic/Immunologic: no urticaria, no wheezing Physical Examination Vital Signs Temp Pulse Resp BP Pulse Ox 97.8 F 58 L 20 175/79 96 10/06/17 13:38 10/06/17 13:38 10/06/17 13:38 10/06/17 13:38 10/06/17 13:38 HEENT: Positive: PERRL, Normocephaly, Mucus Membranes Moist Neck: Positive: neck supple, trachea midline Cardiac: Positive: Reg Rate and Rhythm, S1/S2 Lungs: Positive: clear to auscultation Neuro: Positive: Grossly Intact Abdomen: Positive: Soft, Active Bowel Sounds. Negative: Tender Skin: Positive: Clear. Negative: Rash Extremities: Present: normal. Absent: edema Results 10/06/17 13:32 10/06/17 13:32 CBC 10/06/17 Range/Units 13:32 WBC 7.2 (4.5-11.0) K/mm3 RBC 5.15 H (3.65-5.03) M/mm3 Hgb 13.5 (10.1-14.3) gm/dl Hct 41.8 (30.3-42.9) % Plt Count 172 (140-440) K/mm3 Lymph # 2.1 (1.2-5.4) K/mm3 [place] # 0.7 (0.0-0.8) K/mm3 Eos # 0.1 (0.0-0.4) K/mm3 Baso # 0.0 (0.0-0.1) K/mm3 - Imaging and Cardiology EKG: image reviewed EKG interpretations - Telemetry EKG Rhythm: Sinus Rhythm - EKG Sinus rhythms and dysrhythmias: sinus rhythm Myocardial infarction: inferior [place] (acute or rec, inferior [place] (old age inde Assessment and Plan Assessment: Inferior STEMI CAD s/p CABG Hypertension Hyperlipidemia Diabetes Plan: Await emergent left heart cath findings. Further recommendations to follow. The patient has been seen in conjunction with Dr. Martinez who agrees with the assessment and plan of care.
[2017-10-06 13:58] LABS: INR 0.87 (0.87-1.13)
[2017-10-06 13:59] LABS: Partial Thromboplastin Time 25.7 Sec. (24.2-36.6)
[2017-10-06] MEDS ORDERED: HEPARIN 10,000 UNITS/10 ML IV ONE (14:00)
[2017-10-06] MEDS ORDERED: HEPARIN/ 0.45% NACL-25,000 UNIT/500 ML 25,000 UNIT/500 ML BAG IV SCH ×2 (14:00→20:00)
[2017-10-06 14:16] LABS: Creatine Kinase MB 4.4 ng/mL (0.0-4.0)
[2017-10-06] MEDS ORDERED: BENADRYL ONE (14:17)
[2017-10-06 14:19] LABS: BUN/Creatinine Ratio 14; Blood Urea Nitrogen 17 mg/dL (7-17); Calcium 8.7 mg/dL (8.4-10.2); Hemolysis Index 14
[2017-10-06] MEDS: SUBLIMAZE ONE ×2 (14:19→14:21)
[2017-10-06] MEDS ORDERED: VERSED ONE (14:22)
[2017-10-06] MEDS ORDERED: TYLENOL PO PRN (15:12)
[2017-10-06] MEDS ORDERED: DULCOLAX PR PRN (15:12)
[2017-10-06] MEDS ORDERED: MILK OF MAGNESIA PO PRN (15:12)
[2017-10-06] MEDS ORDERED: ZOFRAN IV PRN (15:12)
[2017-10-06] MEDS ORDERED: NITROSTAT SL SCH (17:00)
[2017-10-06 18:15] LABS: Hematocrit 44.2 % (30.3-42.9); Hemoglobin 14.1 gm/dl (10.1-14.3)
[2017-10-06 18:30] LABS: INR 0.9 (0.87-1.13)
[2017-10-06 18:31] LABS: Creatine Kinase MB 23.6 ng/mL (0.0-4.0)
[2017-10-06 18:42] LABS: Partial Thromboplastin Time 60.3 Sec. (24.2-36.6)
[2017-10-06 19:03] LABS: Chol/HDL Ratio 4.59 %
--- NOTE | 2017-10-06 19:40 | Event Note ---
Date: 10/06/17 Emergent left heart cath this afternoon revealed triple vessel disease. Will admit patient to telemetry overnight and resume heparin gtt 3 hours after sheath removed. Check echocardiogram. Likely transfer to [facility] tomorrow for CT surgery evaluation. Patient remains chest pain free at this time.
--- NOTE | 2017-10-06 20:08 | XRay Report ---
FINAL REPORT PROCEDURE: XR CHEST 1V AP TECHNIQUE: Chest radiograph anteroposterior view. 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 FINDINGS: Heart: Normal contour Mediastinum/Vessels: Normal contour. Lungs/Pleural space: There are patchy bilateral lower lobe and right upper lobe airspace opacities, which may be related to infectious infiltrates or edema. No large effusion is seen. No pneumothorax is identified. Bony thorax: No acute osseous abnormality. Life support devices: None. IMPRESSION: Bilateral patchy airspace opacities may be related to edema or infectious process.
[2017-10-06 21:18] LABS: Creatine Kinase MB 23.5 ng/mL (0.0-4.0)
[2017-10-06] MEDS: LACTINEX PO SCH (21:55)
[2017-10-06] MEDS: ZESTRIL PO SCH (21:55)
[2017-10-06] MEDS: NOVOLOG SUB-Q SCH (21:56)
[2017-10-06] MEDS: NEURONTIN PO SCH (21:56)
[2017-10-06] MEDS: LOPRESSOR PO SCH (21:56)
[2017-10-06] MEDS ORDERED: NEURONTIN PO SCH (22:00)
[2017-10-06] MEDS ORDERED: NITROSTAT SL PRN (22:00)
--- NOTE | 2017-10-06 22:24 | Cardiac Catherization Report ---
INDICATION FOR PROCEDURE: The patient with known coronary artery disease with single vessel bypass and LV mass excision done in 1994, was so at [place], had a catheterization done in 2013, with chronically occluded RCA noted with patent graft to the marginal branch in 2013. She presently presents with chest pain on and off of 24 hours duration, worse this morning. EKG showed Q-waves in the inferior leads along with mild ST elevations. Hence, she being brought to the catheterization laboratory for evaluation of her persistent chest pain more than [address]-T changes with old inferior [place] and minimally elevated STs in the inferior leads. The patient's pain is improved after she came to the Emergency Room. Because of her intermittent chest pain, it was felt that the patient would benefit from cardiac catheterization from definitive diagnosis and treatment. The patient is aware of the procedure, potential complications and alternatives of therapy available. DESCRIPTION OF PROCEDURE: The patient was brought to the catheterization laboratory on an urgent basis. Both the groins were prepared. She has surgical scars in both the groins with a lot of scarring noted from the previous cardiac catheterization. Using 5-Sami micropuncture needle, right femoral artery puncture was made and 6-Sami sheath was introduced. After confirming the guidewire was in the true lumen, 6-Sami sheath was introduced and subsequently using JR4 catheter, right coronary angiograms were obtained. Multipurpose catheter was used to obtain the angiograms of the left ventricle done in [place]OMPSON and CYMRAES projection. A JL4 catheter was used to obtain the angiograms of the left coronary artery and left coronary bypass catheter was used to obtain the angiograms of the vein graft to the marginal branch. Following findings were noted. Left ventriculogram done in THOMPSON projection and CYMRAES projection using hand injection showed marked hypokinesis of the anterior wall and inferior wall. Overall, ejection fraction was felt to be around 25-30%. There is akinesis of the inferolateral wall, and also the anterior wall is markedly hypokinetic to kinetic. Right coronary artery shows patent RCA; however, there is lucency in the proximal RCA suggestive of dissection and also in the mid part, RCA divides into 2 vessels, the large RV a branch is patent with patent stent in the mid part. However, this is diffusely diseased distally, the distal vessel being small caliber, less than 1 mm. Posterior branch of the artery is occluded. This is filling retrograde on LCA injection. Left coronary artery shows left main without significant disease. LAD shows severe diffuse disease in the mid part and with 80-90% long lesion in the mid part. Distal vessel also a small caliber, but patent. Circumflex artery shows occlusion in the proximal part with faint visualization of the marginal branches distally. Vein graft to the obtuse marginal branch shows severe lesion proximally, patent distally, but this is attached to the marginal branch, which has filling defects throughout suggestive of dissection versus thrombus. Distal vessel is filling slowly. FINAL IMPRESSION: [id number] left ventricular dysfunction with marked hypokinesis of the anterior wall and inferior wall and inferolateral wall. Ejection fraction is around 25% or so. However, only hand injection was performed. We will get an echocardiogram. The patient has severe triple vessel disease with occluded RCA in the mid part with suggestion of dissection in the proximal vessel. This is very small caliber distal vessel. Also, an LCA injection, there is collateral filling to the LV branches of the RCA. Circumflex artery is occluded in the proximal part with patent graft to the obtuse marginal branch; however, the graft itself has severe lesion along with a lot of thrombus throughout in the marginal branch. Left main is patent without significant disease; however, LAD has severe chronic disease in the mid part. Distal vessel is small caliber, but it is patent. At this time, these findings have progressed in the last 4 years. Considering the LV dysfunction with above-mentioned severe triple vessel disease, consideration will be given for revascularization surgically. However, we will get cardiothoracic surgeon opinion regarding this. The patient is chest pain free. Blood pressure was stable around 130-160 systolic, rhythm being sinus. We will be continued on IV heparin. We will be continued on antianginal medications. We will plan for transfer to [facility] after discussion with cardiothoracic surgeon. I had a long discussion with the patient's son. He tells me that the patient was recently hospitalized with heart failure at [facility] and she was evaluated at [facility]. The patient's procedure is uncomplicated. Good hemostasis was achieved with pressure bandage. JOB# [id number] NICOLAS/FUAD ROSEN
[2017-10-07] MEDS: ZESTRIL PO SCH (09:25)
[2017-10-07] MEDS: NEURONTIN PO SCH (09:25)
[2017-10-07] MEDS: LACTINEX PO SCH ×2 (09:25→13:02)
[2017-10-07] MEDS: NOVOLOG SUB-Q SCH ×2 (09:27→12:55)
[2017-10-07] MEDS: ULTRAM PO PRN ×2 (09:27→15:40)
[2017-10-07] MEDS ORDERED: LASIX PO SCH (10:00)
[2017-10-07] MEDS ORDERED: DELTASONE PO SCH (10:00)
[2017-10-07] MEDS ORDERED: BABY ASPIRIN PO SCH (10:00)
[2017-10-07] MEDS: LOPRESSOR PO SCH (10:52)
--- NOTE | 2017-10-07 11:36 | Progress Note ---
Assessment and Plan Assessment: Inferior STEMI-->[facility] revealed triple vessel CAD, EF 25% CAD s/p CABG Hypertension Hyperlipidemia Diabetes Plan: Continue heparin infusion. Await transfer to [facility] for CT surgery evaluation under the care of Dr. Monterroso. The patient has been seen in conjunction with Dr. Martinez who agrees with the assessment and plan of care. Subjective Date of service: 10/07/17 Principal diagnosis: STEMI Interval history: The patient is resting in bed. Denies chest pain. Objective Last Vital Signs Temp 97.9 F 10/07/17 10:59 Pulse 57 L 10/07/17 10:59 Resp 24 10/07/17 10:59 BP 128/57 10/07/17 10:59 Pulse Ox 93 10/07/17 10:59 - Physical Examination General: No Apparent Distress HEENT: Positive: PERRL, Normocephaly, Mucus Membranes Moist Neck: Positive: neck supple, trachea midline Cardiac: Positive: Reg Rate and Rhythm, S1/S2 Lungs: Positive: clear to auscultation Neuro: Positive: Grossly Intact Abdomen: Positive: Soft, Active Bowel Sounds. Negative: Tender Skin: Positive: Clear. Negative: Rash Extremities: Present: normal. Absent: edema - Labs and Meds Cardiac Enzymes 10/06/17 10/06/17 10/06/17 Range/Units 13:32 17:19 20:47 CK-MB (CK-2) 4.4 H 23.6 H 23.5 H (0.0-4.0) ng/mL Coagulation 10/06/17 10/06/17 Range/Units 13:32 17:19 PT 12.2 12.6 (12.2-14.9) Sec. INR 0.87 0.90 (0.87-1.13) APTT 25.7 60.3 H* (24.2-36.6) Sec. Lipids 10/06/17 Range/Units 17:19 Triglycerides 159 H (2-149) mg/dL Cholesterol 262 H (50-199) mg/dL HDL Cholesterol 57 (40-59) mg/dL Cholesterol/HDL Ratio 4.59 % CBC 10/06/17 10/06/17 Range/Units 13:32 17:19 WBC 7.2 (4.5-11.0) K/mm3 RBC 5.15 H (3.65-5.03) M/mm3 Hgb 13.5 14.1 (10.1-14.3) gm/dl Hct 41.8 44.2 H (30.3-42.9) % Plt Count 172 177 (140-440) K/mm3 Lymph # 2.1 (1.2-5.4) K/mm3 [place] # 0.7 (0.0-0.8) K/mm3 Eos # 0.1 (0.0-0.4) K/mm3 Baso # 0.0 (0.0-0.1) K/mm3 Comprehensive Metabolic Panel 10/06/17 Range/Units 13:32 Sodium 135 L (137-145) mmol/L Potassium 4.6 (3.6-5.0) mmol/L Chloride 94.3 L (98-107) mmol/L Carbon Dioxide 27 (22-30) mmol/L BUN 17 (7-17) mg/dL Creatinine 1.2 (0.7-1.2) mg/dL Glucose 372 H (65-100) mg/dL Calcium 8.7 (8.4-10.2) mg/dL - Imaging and Cardiology EKG: image reviewed Echo: pending - Telemetry EKG Rhythm: Sinus Rhythm - EKG Sinus rhythms and dysrhythmias: sinus rhythm Myocardial infarction: inferior [place] (acute or rec, inferior [place] (old age inde
--- NOTE | 2017-10-07 11:37 | Discharge Summary ---
Providers - Providers Date of Admission: 10/06/17 15:12 Date of discharge: 10/07/17 Attending physician: ERIN PARSON 10/06/17 15:12 Consult to Cardiac Rehabilitation [CONS] Routine Reason For Exam: Cardiac Rehab Evaluation Primary care physician: [facility] Hospitalization Reason for admission: STEMI Condition: Fair Pertinent studies: emergent left heart cath Hospital course: The patient is a 71 year old female who is followed by Dr. Mccullough in the office with a history of known CAD s/p CABG and LV mass excision in 1995 who had a cath done it 2013 which revealed a chronically occluded RCA with patient graft to the marginal branch who presented on 10/06/17 with chest pain on and off for the past 24 hours. EKG showed inferior Q-waves and mild inferior ST elevation. 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 Parson on an emergent basis. Left heart cath revealed triple vessel CAD and moderate to severe LV dysfunction with marked hypokinesis of the anterior, inferior and inferolateral wall, EF around 25%. She was chest pain free following the procedure and admitted to telemetry for observation overnight. She will be transferred to [facility] in stable condition this afternoon under the care of Dr. Monterroso for consideration of bypass surgery. Disposition: [id number] ANOTHER TYPE HLTHCARE - Discharge Diagnoses (1) STEMI (ST elevation myocardial infarction) Status: Acute (2) Cardiomyopathy Status: Acute (3) CAD (coronary artery disease) Status: Chronic Qualifiers: Coronary Disease-Associated Artery/Lesion type: unspecified vessel or lesion type [place] vs. transplanted heart: samish heart Associated angina: angina presence unspecified Qualified Code(s): I25.10 - Atherosclerotic heart disease of samish coronary artery without angina pectoris (4) Hx of CABG Status: Chronic (5) Hypertension Status: Chronic (6) Hyperlipidemia Status: Chronic (7) Diabetes Status: Chronic Core Measure Documentation - Palliative Care Palliative Care/ Comfort Measures: Not Applicable - Core Measures Any of the following diagnoses?: acute HI - Acute HI Discharge Requirements Aspirin at discharge: Yes ZAFAR/ARB for LVSD if EF <40%: Yes Beta kamila at discharge: Yes Statin for LDL = or >100 mg/dl on DC: Yes Exam - Constitutional Vitals: Temp Pulse Resp BP Pulse Ox 98.7 F 55 L 16 136/60 88 10/07/17 07:22 10/07/17 09:25 10/07/17 07:22 10/07/17 09:25 10/07/17 07:22 General appearance: Present: no acute distress - EENT Eyes: Present: PERRL, EOM intact ENT: hearing intact - Neck Neck: Present: supple, normal ROM - Respiratory Respiratory effort: normal Respiratory: bilateral: CTA - Cardiovascular Rhythm: regular Heart Sounds: Present: S1 & S2 - Extremities Extremities: no ischemia, pulses intact Peripheral Pulses: within normal limits - Abdominal General gastrointestinal: Present: soft, non-tender - Integumentary Integumentary: Present: clear, warm, dry - Psychiatric Psychiatric: appropriate mood/affect - Neurologic Neurologic: CNII-XII intact - Additional findings Additional findings: right femoral cath site-no hematoma Plan Follow up with: PRIMARY CARE, [Primary Care Provider] - 7 Days
[2017-10-07 12:44] VITALS: BP 128/57
== END 2017-10-07 16:19 | disposition other institution (70) ==
LOC: ED 13:32 → CATH 15:04 → 4A 15:12
PROVIDERS: ADMIT Internal Medicine; ATTEND Internal Medicine
DX: I21.19 ST elevation (STEMI) myocardial infarction involving other coronary artery of inferior wall (principal); I25.10 Atherosclerotic heart disease of native coronary artery without angina pectoris; I10 Essential (primary) hypertension; E78.5 Hyperlipidemia, unspecified; E11.9 Type 2 diabetes mellitus without complications; I42.9 Cardiomyopathy, unspecified; Z95.1 Presence of aortocoronary bypass graft
CPT/HCPCS: 36415; 71045; 80048; 80061; 82550; 82553; 82962; 84484; 85014; 85018; 85025; 85049; 85520; 85610; 85730; 86850; 86900; 86901; 93005; 93010; 93459; 96365; 96366; 96372; 96375; 99285; C1894; G0378; J1200; J1644; J2250; J2930; J3010; J7030; J7512; J1815; Q9967

== ENCOUNTER 2018-01-27 21:24 | Emergency (ER) | payer MEDICARE ==
[2018-01-27 23:44] LABS: Basophils % (Auto) 0.5 % (0.0-1.8); Eosinophils # (Auto) 0.1 K/mm3 (0.0-0.4); Eosinophils % (Auto) 1.4 % (0.0-4.3); Hematocrit 36.9 % (30.3-42.9); Hemoglobin 11.9 gm/dl (10.1-14.3); Lymphocytes # (Auto) 1.4 K/mm3 (1.2-5.4); Lymphocytes % (Auto) 22.8 % (13.4-35.0); Mean Corpuscular HGB Conc 32 % (30-34); Mean Corpuscular Hemoglobin 27 pg (28-32); Mean Corpuscular Volume 83 fl (79-97); Monocytes # (Auto) 0.3 K/mm3 (0.0-0.8); Monocytes % (Auto) 4.4 % (0.0-7.3); Platelet Count 171 K/mm3 (140-440); Red Blood Count 4.44 M/mm3 (3.65-5.03); Red Cell Distribution Width 15.9 % (13.2-15.2)
--- NOTE | 2018-01-27 23:57 | XRay Report ---
FINAL REPORT PROCEDURE: XR CHEST 1V AP TECHNIQUE: Chest radiograph anteroposterior view. CPT 04349 HISTORY: Chest Pain COMPARISON: No prior studies are available for comparison. FINDINGS: Mild cardiomegaly is noted with mild bilateral pleural effusions and pulmonary venous congestion. Diffuse prominence of interstitial markings is noted. IMPRESSION: Findings are consistent with CHF with mild bilateral pleural effusions.
[2018-01-28 00:04] LABS: Alanine Aminotransferase 11 units/L (7-56); Albumin 2.6 g/dL (3.9-5); BUN/Creatinine Ratio 8; Blood Urea Nitrogen 5 mg/dL (7-17); Calcium 8.1 mg/dL (8.4-10.2); Hemolysis Index 6
[2018-01-28 00:45] LABS: Chol/HDL Ratio 3.28 %; HDL Cholesterol 57 mg/dL (40-59); LDL Cholesterol,Direct 101 mg/dL (50-130)
--- NOTE | 2018-01-28 01:23 | Emergency Department Report ---
ED General Adult HPI - General Chief complaint: Chest Pain Stated complaint: CP Time Seen by Provider: 01/27/18 21:53 Source: patient, EMS Mode of arrival: Stretcher Limitations: No Limitations - History of Present Illness Initial comments: Ms. Mccray is a 72 yo female with hx of CAD, insulin-dependent diabetes COPD congestive heart failure history of CABG presents with chest pain & shortness of breath. She described a "pulling sensation" which lasted 30 minutes. She has a Nitropatch on constantly. She takes isosorbide dinitrate. Son states that normally after receiving a breathing treatment and prednisone her symptoms improves. However this episode was a little bit more severe than normal. Son desired evaluation. Patient states she wants to go home. She denies any pain at this time. Son explains that due to frequent urination, he has held diuretic. - Related Data Home Medications Medication Instructions Recorded Confirmed Last Taken Gabapentin 300 mg PO BID 09/11/14 11/21/17 02/19/16 Previous Rx's Medication Instructions Recorded Last Taken Type Aspirin [Aspirin BABY CHEW TAB] 81 mg PO QDAY #30 tab.chew 11/25/17 Unknown Rx Carvedilol [Coreg] 12.5 mg PO BID #60 tablet 11/25/17 Unknown Rx Clopidogrel [Plavix] 75 mg PO DAILY #30 tablet 11/25/17 Unknown Rx Furosemide [Lasix TAB] 20 mg PO QDAY #30 tablet 11/25/17 Unknown Rx Insulin NPH Hum/Reg Insulin Hm 30 units SQ BID PRN #90 vial 11/25/17 Unknown Rx [Humulin 70-30 Vial] Ipratropium/Albuterol Sulfate 1 spray IH QID PRN #60 mist.inhal 11/25/17 Unknown Rx [Combivent Respimat] Levofloxacin [Levaquin TAB] 750 mg PO QDAY #10 tablet 11/25/17 Unknown Rx Lisinopril [Zestril TAB] 20 mg PO BID #60 tablet 11/25/17 Unknown Rx Metoprolol [Lopressor TAB] 12.5 mg PO BID #30 tablet 11/25/17 Unknown Rx Pravastatin [Pravachol] 80 mg PO QHS #30 tablet 11/25/17 Unknown Rx metroNIDAZOLE [Flagyl TAB] 500 mg PO Q8H #30 tablet 11/25/17 Unknown Rx predniSONE [Deltasone] 5 mg PO QDAY #14 tab 11/25/17 Unknown Rx traMADol [Ultram 50 MG tab] 50 mg PO BID #60 tablet 11/25/17 Unknown Rx Potassium Chloride 2 tab PO DAILY 14 Days #28 01/28/18 Unknown Rx tablet.er Allergies Allergy/AdvReac Type Severity Reaction Status Date / Time atorvastatin calcium Allergy Unknown Verified 10/06/17 13:37 [From Lipitor] Iodinated Contrast- Oral and Allergy Unknown Verified 10/06/17 13:37 IV Dye [Iodinated Contrast Media - IV Dye] Penicillins Allergy Unknown Verified 10/06/17 13:37 tomato Allergy Unknown Verified 10/06/17 13:37 ED Review of Systems ROS: Stated complaint: CP Other details as noted in HPI Comment: All other systems reviewed and negative Constitutional: denies: fever, malaise Respiratory: denies: cough ED Past Medical Hx - Past Medical History Previous Medical History?: Yes Hx Hypertension: Yes Hx CVA: Yes Hx Heart Attack/AMI: Yes Hx Congestive Heart Failure: Yes Hx Diabetes: Yes Hx GERD: Yes (GERD) Hx Liver Disease: No Hx Renal Disease: Yes (renal stones) Hx Arthritis: Yes Hx Kidney Stones: Yes Hx Asthma: No Hx COPD: Yes Hx HIV: No - Surgical History Past Surgical History?: Yes Hx Coronary Stent: Yes Hx Open Heart Surgery: Yes (CABG X2) Additional Surgical History: Open heart - Social History Smoking Status: Never Smoker Substance Use Type: None - Medications Home Medications: Home Medications Medication Instructions Recorded Confirmed Last Taken Type Gabapentin 300 mg PO BID 09/11/14 11/21/17 02/19/16 History Aspirin [Aspirin BABY CHEW TAB] 81 mg PO QDAY #30 tab.chew 11/25/17 Unknown Rx Carvedilol [Coreg] 12.5 mg PO BID #60 tablet 11/25/17 Unknown Rx Clopidogrel [Plavix] 75 mg PO DAILY #30 tablet 11/25/17 Unknown Rx Furosemide [Lasix TAB] 20 mg PO QDAY #30 tablet 11/25/17 Unknown Rx Insulin NPH Hum/Reg Insulin Hm 30 units SQ BID PRN #90 vial 11/25/17 Unknown Rx [Humulin 70-30 Vial] Ipratropium/Albuterol Sulfate 1 spray IH QID PRN #60 mist.inhal 11/25/17 Unknown Rx [Combivent Respimat] Levofloxacin [Levaquin TAB] 750 mg PO QDAY #10 tablet 11/25/17 Unknown Rx Lisinopril [Zestril TAB] 20 mg PO BID #60 tablet 11/25/17 Unknown Rx Metoprolol [Lopressor TAB] 12.5 mg PO BID #30 tablet 11/25/17 Unknown Rx Pravastatin [Pravachol] 80 mg PO QHS #30 tablet 11/25/17 Unknown Rx metroNIDAZOLE [Flagyl TAB] 500 mg PO Q8H #30 tablet 11/25/17 Unknown Rx predniSONE [Deltasone] 5 mg PO QDAY #14 tab 11/25/17 Unknown Rx traMADol [Ultram 50 MG tab] 50 mg PO BID #60 tablet 11/25/17 Unknown Rx Potassium Chloride 2 tab PO DAILY 14 Days #28 01/28/18 Unknown Rx tablet.er ED Physical Exam - General Limitations: No Limitations General appearance: alert, in no apparent distress, other (frail no acute distress speaking full word sentences appears comfortable ) - Head Head exam: Present: atraumatic, normocephalic - Eye Eye exam: Present: normal appearance - ENT ENT exam: Present: mucous membranes moist - Neck Neck exam: Present: normal inspection - Respiratory Respiratory exam: Present: normal lung sounds bilaterally. Absent: respiratory distress, wheezes, rales, rhonchi - Cardiovascular Cardiovascular Exam: Present: regular rate, normal rhythm, normal heart sounds. Absent: systolic murmur, diastolic murmur, rubs, gallop - GI/Abdominal GI/Abdominal exam: Present: soft, normal bowel sounds. Absent: distended, tenderness, guarding, rebound - Extremities Exam Extremities exam: Present: normal inspection - Back Exam Back exam: Present: normal inspection - Neurological Exam Neurological exam: Present: alert, oriented X3 - Psychiatric Psychiatric exam: Present: normal affect, normal mood - Skin Skin exam: Present: warm, dry, intact, normal color. Absent: rash ED Course Vital Signs 01/27/18 01/27/18 01/27/18 21:54 22:00 22:30 Temperature 97.9 F Pulse Rate 81 83 80 Respiratory 13 11 L 11 L Rate Blood Pressure 181/92 186/94 170/92 Blood Pressure 181/92 [Left] O2 Sat by Pulse 100 100 Oximetry 01/27/18 01/28/18 23:00 00:00 Temperature Pulse Rate 81 74 Respiratory 14 15 Rate Blood Pressure 170/83 173/81 Blood Pressure [Left] O2 Sat by Pulse 100 100 Oximetry ED Medical Decision Making - Lab Data Result diagrams: 01/27/18 23:22 01/27/18 23:22 Laboratory Results - last 24 hr 01/27/18 01/27/18 23:22 23:22 WBC 6.0 RBC 4.44 Hgb 11.9 Hct 36.9 MCV 83 MCH 27 L MCHC 32 RDW 15.9 H Plt Count 171 Lymph % (Auto) 22.8 [place] % (Auto) 4.4 Eos % (Auto) 1.4 Baso % (Auto) 0.5 Lymph # 1.4 [place] # 0.3 Eos # 0.1 Baso # 0.0 Seg Neutrophils % 70.9 H Seg Neutrophils # 4.3 Sodium 141 Potassium 2.8 L* Chloride 90.9 L Carbon Dioxide 40 H Anion Gap 13 BUN 5 L Creatinine 0.6 L Estimated GFR > 60 BUN/Creatinine Ratio 8 Glucose 99 Calcium 8.1 L Total Bilirubin 2.80 H AST 25 ALT 11 Alkaline Phosphatase 154 H Troponin T 0.036 H Total Protein 5.6 L Albumin 2.6 L Albumin/Globulin Ratio 0.9 Triglycerides 99 Cholesterol 187 LDL Cholesterol Direct 101 HDL Cholesterol 57 Cholesterol/HDL Ratio 3.28 Laboratory Results - last 24 hr 01/27/18 01/27/18 23:22 23:22 WBC 6.0 RBC 4.44 Hgb 11.9 Hct 36.9 MCV 83 MCH 27 L MCHC 32 RDW 15.9 H Plt Count 171 Lymph % (Auto) 22.8 [place] % (Auto) 4.4 Eos % (Auto) 1.4 Baso % (Auto) 0.5 Lymph # 1.4 [place] # 0.3 Eos # 0.1 Baso # 0.0 Seg Neutrophils % 70.9 H Seg Neutrophils # 4.3 Sodium 141 Potassium 2.8 L* Chloride 90.9 L Carbon Dioxide 40 H Anion Gap 13 BUN 5 L Creatinine 0.6 L Estimated GFR > 60 BUN/Creatinine Ratio 8 Glucose 99 Calcium 8.1 L Total Bilirubin 2.80 H AST 25 ALT 11 Alkaline Phosphatase 154 H Troponin T 0.036 H Total Protein 5.6 L Albumin 2.6 L Albumin/Globulin Ratio 0.9 Triglycerides 99 Cholesterol 187 LDL Cholesterol Direct 101 HDL Cholesterol 57 Cholesterol/HDL Ratio 3.28 Vital Signs - 24 hr 01/27/18 01/27/18 01/27/18 21:54 22:00 22:30 Temperature 97.9 F Pulse Rate 81 83 80 Respiratory 13 11 L 11 L Rate Blood Pressure 181/92 186/94 170/92 Blood Pressure 181/92 [Left] O2 Sat by Pulse 100 100 Oximetry 01/27/18 01/28/18 23:00 00:00 Temperature Pulse Rate 81 74 Respiratory 14 15 Rate Blood Pressure 170/83 173/81 Blood Pressure [Left] O2 Sat by Pulse 100 100 Oximetry - Medical Decision Making This is presents with chest pain with history of extensive coronary artery disease. I reviewed cardiology and left heart catheterization report. She had extensive cardiac evaluation in October. Cardiac cath report revealed progression of multivessel disease. Son explained that open-heart surgery CABG was recommended. However son and patient declined surgery Due To Frailty. Patient Does Have Evidence of Mild CHF, son had held diuretic. He will resume diuretic. She Does Not Have Any Chest Pain at This Time. She Has Equivocal level of Troponin. Considering Patient Does Not Have Any Chest Pain or Respiratory Distress, I Do Feel That She Is Appropriate for Discharge. Son Will Contact 911 if Ms. Mccray 's Symptoms Return Diagnosis 1. Stable angina 2. CHF exacerbation 3. hypokalemia rx: potassium chloride Critical care attestation.: If time is entered above; I have spent that time in minutes in the direct care of this critically ill patient, excluding procedure time. ED Disposition Clinical Impression: Stable angina, Hypokalemia, Acute on chronic diastolic heart failure Disposition: -01 TO HOME OR SELFCARE Is pt being admited?: No Does the pt Need Aspirin: No Condition: Stable Instructions: Angina (ED), Heart Failure (ED), Hypokalemia (ED) Prescriptions: Potassium Chloride 2 tab PO DAILY 14 Days #28 tablet.er Referrals: INDIA CISNEROS MD [Primary Care Provider] - 3-5 Days Time of Disposition: 01:34
[2018-01-28] MEDS ORDERED: ULTRAM PO ONE (01:35)
[2018-01-28 02:47] VITALS: BP 170/96
== END 2018-01-28 02:49 | disposition home or self-care (01) ==
LOC: ED 21:24
DX: I20.9 Angina pectoris, unspecified (principal); E87.6 Hypokalemia; J44.9 Chronic obstructive pulmonary disease, unspecified; I13.0 Hypertensive heart and chronic kidney disease with heart failure and stage 1 through stage 4 chronic kidney disease, or unspecified chronic kidney disease; E11.22 Type 2 diabetes mellitus with diabetic chronic kidney disease; N18.9 Chronic kidney disease, unspecified; Z95.1 Presence of aortocoronary bypass graft; Z79.82 Long term (current) use of aspirin; Z79.4 Long term (current) use of insulin; Z88.0 Allergy status to penicillin; Z91.018 Allergy to other foods
CPT/HCPCS: 36415; 71045; 80053; 80061; 84484; 85025; 93005; 93010

== ENCOUNTER 2018-04-23 13:45 | Inpatient (IN) | payer MEDICARE ==
[2018-04-23] MEDS ORDERED: NACL 0.9% 500 ML 500 ML IV ONE (14:25)
[2018-04-23] MEDS ORDERED: NACL 0.9% 1000 ML 1,000 ML IV ONE (15:12)
--- NOTE | 2018-04-23 15:20 | XRay Report ---
FINAL REPORT EXAM: XR CHEST 1V AP HISTORY: possible Sepsis TECHNIQUE: One view examination of the chest PRIORS: 01/27/2018 FINDINGS: Sternotomy cerclage wires are again present. Interval clearing left lung. No pneumothorax or left pleural effusion. Normal cardiac silhouette size without vascular congestion. No acute skeletal pathology. Interval clearing of right pleural effusion. There is new or residual consolidation in the right lung base above the right CP angle. Linear densities projected in right lung apex suggestive of skin fold artifact. IMPRESSION: New or residual consolidation in the right lung base above the right CP angle may be atelectasis, edema, and/or pneumonia. Consider follow-up in 4-6 weeks to exclude underlying mass Interval clearing of left lung base opacity Large lung volumes may reflect pulmonary emphysema
[2018-04-23] MEDS ORDERED: LASIX IV ONE (15:41)
[2018-04-23 16:28] LABS: Mean Corpuscular HGB Conc 31 % (30-34); Mean Corpuscular Hemoglobin 26 pg (28-32); Mean Corpuscular Volume 86 fl (79-97); Platelet Count 247 K/mm3 (140-440); Red Blood Count 4.24 M/mm3 (3.65-5.03); Red Cell Distribution Width 16.6 % (13.2-15.2)
[2018-04-23] MEDS ORDERED: ROCEPHIN/NS 1 GM/50 ML 1 GM/50 ML BAG IV ONE (16:28)
[2018-04-23] MEDS ORDERED: LEVAQUIN 500MG/100ML 500 MG/100 ML BAG IV ONE (16:28)
[2018-04-23] MEDS ORDERED: NACL 0.9% 1000 ML IV ONE (16:28)
[2018-04-23 16:31] LABS: Bacteria,Urine 4+ /HPF (Negative); Bilirubin,Urine NEG (Negative); Blood,Urine SM (Negative); Color,Urine Amber (Yellow); Mucus,Urine FEW /HPF
[2018-04-23] MEDS ORDERED: BABY ASPIRIN PO ONE (16:31)
--- NOTE | 2018-04-23 16:31 | Emergency Department Report ---
HPI - General Chief Complaint: Altered Mental Status Time Seen by Provider: 04/23/18 14:52 - HPI HPI: The patient is 72-year-old female with a significant history of congestive heart failure, diabetes, cognitive deficit, noncommunicable, sacral decubitus ulcers, and whom presents for evaluation of altered mental status. Per the patient's daughter, the patient has exhibited a constant severe decrease in mental status for the past one day, exacerbated with activity, and associated with decreased by mouth fluid and food intake the patient 1- 2 days. ED Past Medical Hx - Past Medical History Hx Hypertension: Yes Hx CVA: Yes Hx Heart Attack/AMI: Yes Hx Congestive Heart Failure: Yes Hx Diabetes: Yes Hx GERD: Yes (GERD) Hx Liver Disease: No Hx Renal Disease: Yes (renal stones) Hx Arthritis: Yes Hx Kidney Stones: Yes Hx Asthma: No Hx COPD: Yes Hx HIV: No - Surgical History Hx Coronary Stent: Yes Hx Open Heart Surgery: Yes (CABG X2) Additional Surgical History: Open heart - Social History Smoking Status: Never Smoker Substance Use Type: None - Medications Home Medications: Home Medications Medication Instructions Recorded Confirmed Last Taken Type Gabapentin 300 mg PO BID 09/11/14 04/23/18 02/19/16 History Aspirin [Aspirin BABY CHEW TAB] 81 mg PO QDAY #30 tab.chew 11/25/17 04/23/18 Unknown Rx Furosemide [Lasix TAB] 20 mg PO QDAY #30 tablet 11/25/17 04/23/18 Unknown Rx Metoprolol [Lopressor TAB] 12.5 mg PO BID #30 tablet 11/25/17 04/23/18 Unknown Rx traMADol [Ultram 50 MG tab] 50 mg PO BID #60 tablet 11/25/17 04/23/18 Unknown Rx Potassium Chloride 2 tab PO DAILY 14 Days #28 01/28/18 04/23/18 Unknown Rx tablet.er traMADol [Ultram 50 MG tab] 50 mg PO Q6HR PRN #20 tablet 01/28/18 04/23/18 Unknown Rx ED Review of Systems ROS: Stated complaint: ALTERED MENTAL STATUS Other details as noted in HPI Comment: Unobtainable due to pts medical conditions (non-communicative) Physical Exam - Physical Exam Vital Signs: Vital Signs 04/23/18 04/23/18 04/23/18 13:59 14:00 14:16 Temperature Pulse Rate 115 H 115 H 115 H Respiratory 19 28 H 21 Rate Blood Pressure 87/56 Blood Pressure [Left] O2 Sat by Pulse 98 Oximetry 04/23/18 04/23/18 04/23/18 14:21 14:27 15:33 Temperature 99.1 F Pulse Rate 115 H 115 H 117 H Respiratory 17 16 Rate Blood Pressure 87/56 Blood Pressure 124/69 [Left] O2 Sat by Pulse 82 L 96 Oximetry Physical Exam: General: well-nourished, well-developed, no acute distress Head: Normocephalic, atraumatic Eyes: normal sclera ENT: Mucous membranes are pale and dry Neck: No neck stiffness, no cervical adenopathy Respiratory: Diminished breath sounds and rhonchi present to right lower lung moe Cardio: S1 and S2 present, no murmurs, rubs, gallops, capillary refill is delayed Abdomen: Normoactive bowel sounds, soft abdomen, no rigidity, no guarding or rebound tenderness Chest WALL/Back: No tenderness to palpation of the chest wall, no CVA tenderness with percussion : Sacral decubitus ulcers present Musc: No pitting edema Skin: No rash Neuro: no facial drooping, normal speech Psych: Normal affect ED Course Vital Signs 04/23/18 04/23/18 04/23/18 13:59 14:00 14:16 Temperature Pulse Rate 115 H 115 H 115 H Respiratory 19 28 H 21 Rate Blood Pressure 87/56 Blood Pressure [Left] O2 Sat by Pulse 98 Oximetry 04/23/18 04/23/18 04/23/18 14:21 14:27 15:33 Temperature 99.1 F Pulse Rate 115 H 115 H 117 H Respiratory 17 16 Rate Blood Pressure 87/56 Blood Pressure 124/69 [Left] O2 Sat by Pulse 82 L 96 Oximetry ED Medical Decision Making - Lab Data Result diagrams: 04/23/18 16:04 04/23/18 16:04 - Medical Decision Making The patient was seen and examined by myself. The patient is placed on a time study observer and continuous pulse ox. On initial evaluation, the patient was found to be in no distress, although with severely low blood pressure a significant tachycardia. The patient is given 30 cc/kg normal saline fluid bolus for treatment of her dehydration, hypotension, I suspect a septic shock versus hypovolemic shock. Multiple bedside reassessments were performed to assess patient's responsiveness to fluids resuscitation. Evaluation orders were placed. X-ray of the chest reveals a right lower infiltrate concerning for pneumonia. Lab results revealed leukocytosis, WBC 24.9, elevated creatinine of 1.6, elevated lactic acid 8.8, elevated BNP of 46,000. The patient is given IV Rocephin, Levaquin, and vancomycin for treatment of suspected pneumonia. The on- call hospitalist service was contacted. They agreed to admit the patient for further treatment and close monitoring. The ED admit order was placed. The patient was admitted in guarded condition. Critical Care Time: Yes Critical care time in (mins) excluding proc time.: 35 Critical care attestation.: Due to the critical nature of this patients presentation, which necessitated multiple bedside assessments, manipulation and supportive measures to prevent further life threatening deterioration, I would like to bill for a total of 35 minutes of critical care time. This was exclusive of any separately billable procedures. Critical Care Time: 35 min ED Disposition Clinical Impression: Septic shock, Acute lower UTI (urinary tract infection) Pneumonia Qualifiers: Pneumonia type: due to unspecified organism Laterality: right Lung location: lower lobe of lung Qualified Code(s): J18.1 - Lobar pneumonia, unspecified organism Altered mental status, unspecified Qualifiers: Altered mental status type: unspecified Qualified Code(s): R41.82 - Altered mental status, unspecified Disposition: [id number] OP ADMIT IP TO THIS HOSP Is pt being admited?: Yes Does the pt Need Aspirin: Yes Condition: Critical Time of Disposition: 16:29
[2018-04-23 16:35] LABS: Hematocrit 36.5 % (30.3-42.9); Hemoglobin 11.1 gm/dl (10.1-14.3)
[2018-04-23 16:35] LABS: WBC,Urine > 182.0 /HPF (0.0-6.0)
[2018-04-23 16:37] LABS: INR 1.48 (0.87-1.13)
[2018-04-23 16:40] LABS: Amphetamine Screen,Urine PRESUMPTIVE NEGATIVE; Benzodiazepines Screen,Urine PRESUMPTIVE NEGATIVE; Cannabinoid Screen,Urine PRESUMPTIVE NEGATIVE; Cocaine Screen,Urine PRESUMPTIVE NEGATIVE; Opiate Screen,Urine PRESUMPTIVE NEGATIVE
[2018-04-23 16:44] LABS: Albumin 1.9 g/dL (3.9-5); Calcium 8.4 mg/dL (8.4-10.2)
[2018-04-23] MEDS ORDERED: VANCOMYCIN 1,000 MG in NACL 0.9% 500 ML 500 ML IV ONE (16:51)
[2018-04-23 16:53] LABS: Methadone Screen,Urine PRESUMPTIVE POSITIVE
[2018-04-23] MEDS ORDERED: VANCOMYCIN/NS 1 GM/250 ML 1 GM/250 ML BAG IV ONE (17:00)
[2018-04-23 17:43] LABS: Anisocytosis 1+; Basophils % (Manual) 0 % (0.0-1.8); Eosinophils % (Manual) 0 % (0.0-4.3); Monocytes % (Manual) 1.5 % (0.0-7.3); Total Cells Counted 200
[2018-04-23 17:44] LABS: Platelet Estimate Consistent w Auto
[2018-04-23] MEDS ORDERED: SODIUM CHLORIDE FLUSH SYRINGE 10 ML IV PRN (22:50)
[2018-04-23] MEDS ORDERED: TYLENOL PO PRN (22:50)
[2018-04-23] MEDS ORDERED: ZOFRAN IV PRN (22:50)
[2018-04-23] MEDS ORDERED: PEPCID IV SCH (23:00)
[2018-04-23] MEDS ORDERED: NEURONTIN PO SCH (23:00)
--- NOTE | 2018-04-23 23:13 | History and Physical Report ---
History of Present Illness Date of examination: 04/23/18 Date of admission: 04/23/18 17:01 Chief complaint: CC AMS--1 day History of present illness: [place] The patient is 72-year-old female with a significant history of congestive heart failure, diabetes, cognitive deficit, noncommunicable, sacral decubitus ulcers, and whom presents for evaluation of altered mental status. Patient has been mostly bed ridden since Oct 2016.As per the patient's daughter, the patient has exhibited a constant severe decrease in mental status for the past one day, exacerbated with activity, and associated with decreased by mouth fluid and food intake the patient 1- 2 days.Patient also has sacral decubitus ulcers Past Medical History Hypertension CVAx1 Heart Attack/AMI Congestive Heart Failure Diabetes GERD Arthritis Kidney Stones COPD Surgical History Coronary Stent: Yes Open Heart Surgery: Yes (CABG X2) Additional Surgical History: Open heart - Social History Smoking Status: Never Smoker Substance Use Type: None - Medications Home Medications: Home Medications Medication Instructions Recorded Confirmed Last Taken Type Gabapentin 300 mg PO BID 09/11/14 04/23/18 02/19/16 History Aspirin [Aspirin BABY CHEW TAB] 81 mg PO QDAY #30 tab.chew 11/25/17 04/23/18 Unknown Rx Furosemide [Lasix TAB] 20 mg PO QDAY #30 tablet 11/25/17 04/23/18 Unknown Rx Metoprolol [Lopressor TAB] 12.5 mg PO BID #30 tablet 11/25/17 04/23/18 Unknown Rx traMADol [Ultram 50 MG tab] 50 mg PO BID #60 tablet 11/25/17 04/23/18 Unknown Rx Potassium Chloride 2 tab PO DAILY 14 Days #28 01/28/18 04/23/18 Unknown Rx tablet.er traMADol [Ultram 50 MG tab] 50 mg PO Q6HR PRN #20 tablet 01/28/18 04/23/18 Unknown Rx Review of Systems ROS: Stated complaint: ALTERED MENTAL STATUS Other details as noted in HPI Comment: Unobtainable due to pts medical conditions (non-communicative) amazingly Without name: Vital IY diet. #Units and the [place] Medications and Allergies Allergies Allergy/AdvReac Type Severity Reaction Status Date / Time atorvastatin calcium Allergy Unknown Verified 10/06/17 13:37 [From Lipitor] Iodinated Contrast- Oral and Allergy Unknown Verified 10/06/17 13:37 IV Dye [Iodinated Contrast Media - IV Dye] Penicillins Allergy Unknown Verified 10/06/17 13:37 tomato Allergy Unknown Verified 10/06/17 13:37 Home Medications Medication Instructions Recorded Confirmed Last Taken Type Gabapentin 300 mg PO BID 09/11/14 04/23/18 02/19/16 History Aspirin [Aspirin BABY CHEW TAB] 81 mg PO QDAY #30 tab.chew 11/25/17 04/23/18 Unknown Rx Furosemide [Lasix TAB] 20 mg PO QDAY #30 tablet 11/25/17 04/23/18 Unknown Rx Metoprolol [Lopressor TAB] 12.5 mg PO BID #30 tablet 11/25/17 04/23/18 Unknown Rx traMADol [Ultram 50 MG tab] 50 mg PO BID #60 tablet 11/25/17 04/23/18 Unknown Rx Potassium Chloride 2 tab PO DAILY 14 Days #28 01/28/18 04/23/18 Unknown Rx tablet.er traMADol [Ultram 50 MG tab] 50 mg PO Q6HR PRN #20 tablet 01/28/18 04/23/18 Unknown Rx Exam - Physical Exam Narrative exam: Lethargic,Intermittently alert - Constitutional Vitals: Temp Pulse Resp BP Pulse Ox 97.9 F 110 H 20 116/74 100 04/23/18 19:30 04/23/18 20:15 04/23/18 20:42 04/23/18 19:30 04/23/18 19:30 General appearance: Present: no acute distress, well-nourished - EENT Eyes: Present: PERRL ENT: hearing intact, clear oral mucosa - Neck Neck: Present: supple, normal ROM - Respiratory Respiratory effort: normal Respiratory: bilateral: CTA - Cardiovascular Heart rate: 14 Rhythm: regular Heart Sounds: Present: S1 & S2. Absent: rub, click - Extremities Extremities: no ischemia, pulses intact, pulses symmetrical, No edema, abnormal (Sacral decub ulcer) Peripheral Pulses: within normal limits - Abdominal General gastrointestinal: Present: soft, non-tender, non-distended, normal bowel sounds Female genitourinary: Present: normal - Integumentary Integumentary: Present: clear, warm, dry - Musculoskeletal Musculoskeletal: gait normal, strength equal bilaterally - Psychiatric Psychiatric: appropriate mood/affect, intact judgment & insight - Neurologic Neurologic: CNII-XII intact, moves all extremities Results - Labs CBC & Chem 7: 04/23/18 16:04 04/23/18 16:04 Labs: Laboratory Last Values WBC 24.9 K/mm3 (4.5-11.0) H 04/23/18 16:04 RBC 4.24 M/mm3 (3.65-5.03) 04/23/18 16:04 Hgb 11.1 gm/dl (10.1-14.3) 04/23/18 16:04 Hct 36.5 % (30.3-42.9) 04/23/18 16:04 MCV 86 fl (79-97) 04/23/18 16:04 MCH 26 pg (28-32) L 04/23/18 16:04 MCHC 31 % (30-34) 04/23/18 16:04 RDW 16.6 % (13.2-15.2) H 04/23/18 16:04 Plt Count 247 K/mm3 (140-440) 04/23/18 16:04 Add Manual Diff Complete 04/23/18 16:04 Total Counted 200 04/23/18 16:04 Seg Neutrophils % Consumer [employer]er 04/23/18 16:04 Seg Neuts % (Manual) 97.0 % (40.0-70.0) H 04/23/18 16:04 Band Neutrophils % 0 % 04/23/18 16:04 Lymphocytes % (Manual) 1.5 % (13.4-35.0) L 04/23/18 16:04 Reactive Lymphs % (Man) 0 % 04/23/18 16:04 Monocytes % (Manual) 1.5 % (0.0-7.3) 04/23/18 16:04 Eosinophils % (Manual) 0 % (0.0-4.3) 04/23/18 16:04 Basophils % (Manual) 0 % (0.0-1.8) 04/23/18 16:04 Metamyelocytes % 0 % 04/23/18 16:04 Myelocytes % 0 % 04/23/18 16:04 Promyelocytes % 0 % 04/23/18 16:04 Blast Cells % 0 % 04/23/18 16:04 Nucleated RBC % Not Reportable 04/23/18 16:04 Seg Neutrophils # Man 24.2 K/mm3 (1.8-7.7) H 04/23/18 16:04 Band Neutrophils # 0.0 K/mm3 04/23/18 16:04 Lymphocytes # (Manual) 0.4 K/mm3 (1.2-5.4) L 04/23/18 16:04 Abs React Lymphs (Man) 0.0 K/mm3 04/23/18 16:04 Monocytes # (Manual) 0.4 K/mm3 (0.0-0.8) 04/23/18 16:04 Eosinophils # (Manual) 0.0 K/mm3 (0.0-0.4) 04/23/18 16:04 Basophils # (Manual) 0.0 K/mm3 (0.0-0.1) 04/23/18 16:04 Metamyelocytes # 0.0 K/mm3 04/23/18 16:04 Myelocytes # 0.0 K/mm3 04/23/18 16:04 Promyelocytes # 0.0 K/mm3 04/23/18 16:04 Blast Cells # 0.0 K/mm3 04/23/18 16:04 WBC Morphology Not Reportable 04/23/18 16:04 Hypersegmented Neuts Not Reportable 04/23/18 16:04 Hyposegmented Neuts Not Reportable 04/23/18 16:04 Hypogranular Neuts Not Reportable 04/23/18 16:04 Smudge Cells Not Reportable 04/23/18 16:04 Toxic Granulation Not Reportable 04/23/18 16:04 Toxic Vacuolation Not Reportable 04/23/18 16:04 Dohle Bodies Not Reportable 04/23/18 16:04 Pelger-Huet Anomaly Not Reportable 04/23/18 16:04 Rocío Rods Not Reportable 04/23/18 16:04 Platelet Estimate Consistent w auto 04/23/18 16:04 Clumped Platelets Not Reportable 04/23/18 16:04 Plt Clumps, EDTA Not Reportable 04/23/18 16:04 Large Platelets Not Reportable 04/23/18 16:04 Giant Platelets Not Reportable 04/23/18 16:04 Platelet Satelliting Not Reportable 04/23/18 16:04 Plt Morphology Comment Not Reportable 04/23/18 16:04 RBC Morphology Not Reportable 04/23/18 16:04 Dimorphic RBCs Not Reportable 04/23/18 16:04 Polychromasia Not Reportable 04/23/18 16:04 Hypochromasia Not Reportable 04/23/18 16:04 Poikilocytosis Not Reportable 04/23/18 16:04 Anisocytosis 1+ 04/23/18 16:04 Microcytosis Not Reportable 04/23/18 16:04 Macrocytosis Not Reportable 04/23/18 16:04 Spherocytes Not Reportable 04/23/18 16:04 Pappenheimer Bodies Not Reportable 04/23/18 16:04 Sickle Cells Not Reportable 04/23/18 16:04 Target Cells Not Reportable 04/23/18 16:04 Tear Drop Cells Not Reportable 04/23/18 16:04 Ovalocytes Not Reportable 04/23/18 16:04 Helmet Cells Not Reportable 04/23/18 16:04 [place] Bodies Not Reportable 04/23/18 16:04 [place] Rings Not Reportable 04/23/18 16:04 [place] Cells Not Reportable 04/23/18 16:04 Bite Cells Not Reportable 04/23/18 16:04 Crenated Cell Not Reportable 04/23/18 16:04 Elliptocytes Not Reportable 04/23/18 16:04 Acanthocytes (Spur) Not Reportable 04/23/18 16:04 Rouleaux Not Reportable 04/23/18 16:04 Hemoglobin C Crystals Not Reportable 04/23/18 16:04 Schistocytes Not Reportable 04/23/18 16:04 Malaria parasites Not Reportable 04/23/18 16:04 Trev Bodies Not Reportable 04/23/18 16:04 Hem Pathologist Commnt No 04/23/18 16:04 PT 18.8 Sec. (12.2-14.9) H 04/23/18 16:04 INR 1.48 (0.87-1.13) H 04/23/18 16:04 POC ABG pH 7.470 (7.35-7.45) H 04/23/18 16:44 POC ABG pCO2 42.7 (35-45) 04/23/18 16:44 POC ABG pO2 156 (80-105) H 04/23/18 16:44 POC ABG HCO3 31.1 04/23/18 16:44 POC ABG Total CO2 32 04/23/18 16:44 POC ABG O2 Sat 99 04/23/18 16:44 POC ABG Base Excess 7 04/23/18 16:44 VBG pH 7.308 (7.320-7.420) L 04/23/18 16:04 FiO2 36 % 04/23/18 16:44 Sodium 145 mmol/L (137-145) 04/23/18 16:04 Potassium 4.0 mmol/L (3.6-5.0) 04/23/18 16:04 Chloride 95.6 mmol/L (98-107) L 04/23/18 16:04 Carbon Dioxide 27 mmol/L (22-30) 04/23/18 16:04 Anion Gap 26 mmol/L 04/23/18 16:04 BUN 24 mg/dL (7-17) H 04/23/18 16:04 Creatinine 1.6 mg/dL (0.7-1.2) H 04/23/18 16:04 Estimated GFR 39 ml/min 04/23/18 16:04 BUN/Creatinine Ratio 15 % 04/23/18 16:04 Glucose 162 mg/dL (65-100) H 04/23/18 16:04 Lactic Acid 8.80 mmol/L (0.7-2.0) H* 04/23/18 16:04 Calcium 8.4 mg/dL (8.4-10.2) 04/23/18 16:04 Total Bilirubin 1.90 mg/dL (0.1-1.2) H 04/23/18 16:04 AST 68 units/L (5-40) H 04/23/18 16:04 ALT 14 units/L (7-56) 04/23/18 16:04 Alkaline Phosphatase 253 units/L (35-129) H 04/23/18 16:04 NT-Pro-B Natriuret Pep 44076 pg/mL (0-900) H 04/23/18 16:04 Total Protein 5.8 g/dL (6.3-8.2) L 04/23/18 16:04 Albumin 1.9 g/dL (3.9-5) L 04/23/18 16:04 Albumin/Globulin Ratio 0.5 % 04/23/18 16:04 TSH 1.830 mlU/mL (0.270-4.200) 04/23/18 14:25 Urine Color Evangel[place] (Yellow) 04/23/18 15:40 Urine Turbidity Clear (Clear) 04/23/18 15:40 Urine pH 5.0 (5.0-7.0) 04/23/18 15:40 Ur Specific [place] 1.017 (1.003-1.030) 04/23/18 15:40 Urine Protein 100 mg/dl mg/dL (Negative) 04/23/18 15:40 Urine Glucose (UA) Neg mg/dL (Negative) 04/23/18 15:40 Urine Ketones Neg mg/dL (Negative) 04/23/18 15:40 Urine Blood Sm (Negative) 04/23/18 15:40 Urine Nitrite Neg (Negative) 04/23/18 15:40 Urine Bilirubin Neg (Negative) 04/23/18 15:40 Urine Urobilinogen 2.0 mg/dL (<2.0) 04/23/18 15:40 Ur Leukocyte Esterase Mod (Negative) 04/23/18 15:40 Urine WBC (Auto) > 182.0 /HPF (0.0-6.0) H 04/23/18 15:40 Urine RBC (Auto) 17.0 /HPF (0.0-6.0) 04/23/18 15:40 U Epithel Cells (Auto) 8.0 /HPF (0-13.0) 04/23/18 15:40 Urine Bacteria (Auto) 4+ /HPF (Negative) 04/23/18 15:40 Urine WBC Clumps 3+ /HPF 04/23/18 15:40 Urine Mucus Few /HPF 04/23/18 15:40 Urine Opiates Screen Presumptive negative 04/23/18 15:40 Urine Methadone Screen Presumptive positive 04/23/18 15:40 Ur Barbiturates Screen Presumptive negative 04/23/18 15:40 Ur Phencyclidine Scrn Presumptive negative 04/23/18 15:40 Ur Amphetamines Screen Presumptive negative 04/23/18 15:40 U Benzodiazepines Scrn Presumptive negative 04/23/18 15:40 Urine Cocaine Screen Presumptive negative 04/23/18 15:40 U Marijuana (THC) Screen Presumptive negative 04/23/18 15:40 Drugs of Abuse Note Disclamer 04/23/18 15:40 Plasma/Serum Alcohol < 0.01 % (0-0.07) 04/23/18 17:09 - Imaging and Cardiology EKG: report reviewed (Sinus Tach 114/min) Assessment and Plan Advance Directives: Yes (Full code) VTE prophylaxis?: Chemical Plan of care discussed with patient/family: Yes - Patient Problems (1) Sepsis Current Visit: Yes Status: Acute Qualifiers: Sepsis type: sepsis due to unspecified organism Qualified Code(s): A41.9 - Sepsis, unspecified organism Plan to address problem: Sec to Sacral decub ulcer and UTI IV Zosyn and Vancomycin Lactic Acid High (2) Encephalopathy acute Current Visit: Yes Status: Acute Plan to address problem: Sec to Sepsis Treat sepsis (3) Dehydration Current Visit: No Status: Acute Plan to address problem: IV Fluids for now (4) EDGARDO (acute kidney injury) Current Visit: Yes Status: Acute Plan to address problem: IV Fluids for now (5) UTI (urinary tract infection) Current Visit: Yes Status: Acute Qualifiers: Urinary tract infection type: acute cystitis Plan to address problem: ON Zosyn and Vancomycin for sepsis which should cover UTI also Check cultures (6) Sacral decubitus ulcer Current Visit: Yes Status: Acute Qualifiers: Pressure injury stage: stage 4 Qualified Code(s): L89.154 - Pressure ulcer of sacral region, stage 4 Plan to address problem: Wound care\ Surg consult (7) HTN (hypertension) Current Visit: Yes Status: Chronic Qualifiers: Hypertension type: essential hypertension Qualified Code(s): I10 - Essential (primary) hypertension Plan to address problem: Cont Antihypertensives (8) CHF (congestive heart failure) Current Visit: Yes Status: Chronic Qualifiers: Heart failure type: combined systolic and diastolic Plan to address problem: Check ECHO High BNP Lasix as tolerated given EDGARDO (9) DVT prophylaxis Current Visit: No Status: Chronic Plan to address problem: Cont Lovenox @ 30mg q24h
[2018-04-23] MEDS ORDERED: ZOSYN/NS 3.375GM/50ML 3.375 GM/50 ML BAG IV SCH (23:45)
[2018-04-24] MEDS: NACL 0.9% 1000 ML 1,000 ML IV SCH (01:04)
[2018-04-24] MEDS: LOPRESSOR PO SCH ×3 (01:04→23:10)
[2018-04-24] MEDS: NEURONTIN PO SCH ×3 (01:05→23:11)
[2018-04-24] MEDS ORDERED: VANCOMYCIN PHARMACY TO DOSE IV SCH (08:00)
[2018-04-24] MEDS ORDERED: POTASSIUM CHLORIDE PO SCH (10:00)
[2018-04-24] MEDS: PEPCID IV SCH (10:12)
[2018-04-24] MEDS: MAXIPIME/NS 1 GM/100 ML 1 GM/100 ML BAG IV SCH (10:12)
[2018-04-24] MEDS: LASIX PO SCH (10:12)
[2018-04-24] MEDS: K-DUR PO SCH (10:12)
[2018-04-24] MEDS: BABY ASPIRIN PO SCH (10:13)
[2018-04-24] MEDS: SODIUM CHLORIDE FLUSH SYRINGE 10 ML IV SCH ×2 (10:14→23:11)
--- NOTE | 2018-04-24 12:37 | Progress Note ---
Assessment and Plan Assessment and plan: --Sepsis; probably due to decubitus ulcers as well as UTI Empiric antibiotics Vanco and Zosyn, follow cultures IV fluids and supportive care --Lactic acidosis; secondary to sepsis Continue current management --Metabolic encephalopathy; probably due to sepsis Patient is noncommunicative --Acute on chronic systolic congestive heart failure; Continue current cardiac medications --History of coronary artery disease status post CABG; continue current cardiac medications cardiology evaluation if needed --Urinary tract infection; IV fluids Empiric antibiotics, follow cultures --Stage IV sacral decubitus ulcer; wound care Antibiotics follow cultures, surgery evaluation and recommendations noted Surgical debridement if needed --Severe malnutrition/hypoalbuminemia; nutrition supplement and supportive care Nutrition consult, poor oral intake Patient may need tube feeding, discussed with son at the bedside Not willing at this point, want to consult with family members and inform --DVT prophylaxis Lovenox --Full CODE STATUS Very poor prognosis in view of dementia, sepsis and severe malnutrition, decubitus ulcers, Since condition plan of care discussed with the son at the bedside History Interval history: Patient seen and examined medical records reviewed Elderly frail female patient, severe malnutrition Chronically ill-looking and cachectic admitted with altered level of consciousness And sepsis Patient is sleeping, noncommunicative Poor oral intake, failure to thrive Vital signs reviewed Son is at the bedside Hospitalist Physical - Constitutional Vitals: Temp Pulse Resp BP Pulse Ox 98.2 F 67 18 125/92 100 04/24/18 08:39 04/24/18 11:26 04/24/18 10:00 04/24/18 10:12 04/24/18 10:00 General appearance: Present: no acute distress, cachectic, disheveled, other ( chronically ill-looking) - Neck Neck: Present: supple, normal ROM - Respiratory Respiratory effort: normal Respiratory: bilateral: diminished, rhonchi, negative: rales, wheezing - Cardiovascular Rhythm: regular Heart Sounds: Present: S1 & S2 - Extremities Extremities: no ischemia, No edema - Abdominal General gastrointestinal: soft, non-tender, non-distended, normal bowel sounds - Integumentary Integumentary: Present: clear, warm, erythema (stage IV sacral decubitus ulcer) - Psychiatric Psychiatric: other (noncommunicative) - Neurologic Neurologic: other (noncommunicative) Results - Labs CBC & Chem 7: 04/23/18 16:04 04/23/18 16:04 Labs: Laboratory Last Values WBC 24.9 K/mm3 (4.5-11.0) H 04/23/18 16:04 RBC 4.24 M/mm3 (3.65-5.03) 04/23/18 16:04 Hgb 11.1 gm/dl (10.1-14.3) 04/23/18 16:04 Hct 36.5 % (30.3-42.9) 04/23/18 16:04 MCV 86 fl (79-97) 04/23/18 16:04 MCH 26 pg (28-32) L 04/23/18 16:04 MCHC 31 % (30-34) 04/23/18 16:04 RDW 16.6 % (13.2-15.2) H 04/23/18 16:04 Plt Count 247 K/mm3 (140-440) 04/23/18 16:04 Add Manual Diff Complete 04/23/18 16:04 Total Counted 200 04/23/18 16:04 Seg Neutrophils % Vascular Nurse 04/23/18 16:04 Seg Neuts % (Manual) 97.0 % (40.0-70.0) H 04/23/18 16:04 Band Neutrophils % 0 % 04/23/18 16:04 Lymphocytes % (Manual) 1.5 % (13.4-35.0) L 04/23/18 16:04 Reactive Lymphs % (Man) 0 % 04/23/18 16:04 Monocytes % (Manual) 1.5 % (0.0-7.3) 04/23/18 16:04 Eosinophils % (Manual) 0 % (0.0-4.3) 04/23/18 16:04 Basophils % (Manual) 0 % (0.0-1.8) 04/23/18 16:04 Metamyelocytes % 0 % 04/23/18 16:04 Myelocytes % 0 % 04/23/18 16:04 Promyelocytes % 0 % 04/23/18 16:04 Blast Cells % 0 % 04/23/18 16:04 Nucleated RBC % Not Reportable 04/23/18 16:04 Seg Neutrophils # Man 24.2 K/mm3 (1.8-7.7) H 04/23/18 16:04 Band Neutrophils # 0.0 K/mm3 04/23/18 16:04 Lymphocytes # (Manual) 0.4 K/mm3 (1.2-5.4) L 04/23/18 16:04 Abs React Lymphs (Man) 0.0 K/mm3 04/23/18 16:04 Monocytes # (Manual) 0.4 K/mm3 (0.0-0.8) 04/23/18 16:04 Eosinophils # (Manual) 0.0 K/mm3 (0.0-0.4) 04/23/18 16:04 Basophils # (Manual) 0.0 K/mm3 (0.0-0.1) 04/23/18 16:04 Metamyelocytes # 0.0 K/mm3 04/23/18 16:04 Myelocytes # 0.0 K/mm3 04/23/18 16:04 Promyelocytes # 0.0 K/mm3 04/23/18 16:04 Blast Cells # 0.0 K/mm3 04/23/18 16:04 WBC Morphology Not Reportable 04/23/18 16:04 Hypersegmented Neuts Not Reportable 04/23/18 16:04 Hyposegmented Neuts Not Reportable 04/23/18 16:04 Hypogranular Neuts Not Reportable 04/23/18 16:04 Smudge Cells Not Reportable 04/23/18 16:04 Toxic Granulation Not Reportable 04/23/18 16:04 Toxic Vacuolation Not Reportable 04/23/18 16:04 Dohle Bodies Not Reportable 04/23/18 16:04 Pelger-Huet Anomaly Not Reportable 04/23/18 16:04 Rocío Rods Not Reportable 04/23/18 16:04 Platelet Estimate Consistent w auto 04/23/18 16:04 Clumped Platelets Not Reportable 04/23/18 16:04 Plt Clumps, EDTA Not Reportable 04/23/18 16:04 Large Platelets Not Reportable 04/23/18 16:04 Giant Platelets Not Reportable 04/23/18 16:04 Platelet Satelliting Not Reportable 04/23/18 16:04 Plt Morphology Comment Not Reportable 04/23/18 16:04 RBC Morphology Not Reportable 04/23/18 16:04 Dimorphic RBCs Not Reportable 04/23/18 16:04 Polychromasia Not Reportable 04/23/18 16:04 Hypochromasia Not Reportable 04/23/18 16:04 Poikilocytosis Not Reportable 04/23/18 16:04 Anisocytosis 1+ 04/23/18 16:04 Microcytosis Not Reportable 04/23/18 16:04 Macrocytosis Not Reportable 04/23/18 16:04 Spherocytes Not Reportable 04/23/18 16:04 Pappenheimer Bodies Not Reportable 04/23/18 16:04 Sickle Cells Not Reportable 04/23/18 16:04 Target Cells Not Reportable 04/23/18 16:04 Tear Drop Cells Not Reportable 04/23/18 16:04 Ovalocytes Not Reportable 04/23/18 16:04 Helmet Cells Not Reportable 04/23/18 16:04 [place] Bodies Not Reportable 04/23/18 16:04 [place] Rings Not Reportable 04/23/18 16:04 [place] Cells Not Reportable 04/23/18 16:04 Bite Cells Not Reportable 04/23/18 16:04 Crenated Cell Not Reportable 04/23/18 16:04 Elliptocytes Not Reportable 04/23/18 16:04 Acanthocytes (Spur) Not Reportable 04/23/18 16:04 Rouleaux Not Reportable 04/23/18 16:04 Hemoglobin C Crystals Not Reportable 04/23/18 16:04 Schistocytes Not Reportable 04/23/18 16:04 Malaria parasites Not Reportable 04/23/18 16:04 Trev Bodies Not Reportable 04/23/18 16:04 Hem Pathologist Commnt No 04/23/18 16:04 PT 18.8 Sec. (12.2-14.9) H 04/23/18 16:04 INR 1.48 (0.87-1.13) H 04/23/18 16:04 POC ABG pH 7.470 (7.35-7.45) H 04/23/18 16:44 POC ABG pCO2 42.7 (35-45) 04/23/18 16:44 POC ABG pO2 156 (80-105) H 04/23/18 16:44 POC ABG HCO3 31.1 04/23/18 16:44 POC ABG Total CO2 32 04/23/18 16:44 POC ABG O2 Sat 99 07/21/18 16:44 POC ABG Base Excess 7 04/23/18 16:44 VBG pH 7.308 (7.320-7.420) L 04/23/18 16:04 FiO2 36 % 04/23/18 16:44 Sodium 145 mmol/L (137-145) 04/23/18 16:04 Potassium 4.0 mmol/L (3.6-5.0) 04/23/18 16:04 Chloride 95.6 mmol/L (98-107) L 04/23/18 16:04 Carbon Dioxide 27 mmol/L (22-30) 04/23/18 16:04 Anion Gap 26 mmol/L 04/23/18 16:04 BUN 24 mg/dL (7-17) H 04/23/18 16:04 Creatinine 1.6 mg/dL (0.7-1.2) H 04/23/18 16:04 Estimated GFR 39 ml/min 04/23/18 16:04 BUN/Creatinine Ratio 15 % 04/23/18 16:04 Glucose 162 mg/dL (65-100) H 04/23/18 16:04 POC Glucose 98 (70-105) 04/24/18 05:56 Hemoglobin A1c 5.4 % (4-6) 04/23/18 23:13 Lactic Acid 2.00 mmol/L (0.7-2.0) 04/24/18 00:47 Calcium 8.4 mg/dL (8.4-10.2) 04/23/18 16:04 Total Bilirubin 1.90 mg/dL (0.1-1.2) H 04/23/18 16:04 AST 68 units/L (5-40) H 04/23/18 16:04 ALT 14 units/L (7-56) 04/23/18 16:04 Alkaline Phosphatase 253 units/L (35-129) H 04/23/18 16:04 NT-Pro-B Natriuret Pep 94516 pg/mL (0-900) H 04/23/18 16:04 Total Protein 5.8 g/dL (6.3-8.2) L 04/23/18 16:04 Albumin 1.9 g/dL (3.9-5) L 04/23/18 16:04 Albumin/Globulin Ratio 0.5 % 04/23/18 16:04 TSH 1.830 mlU/mL (0.270-4.200) 04/23/18 14:25 Urine Color [place] (Yellow) 04/23/18 15:40 Urine Turbidity Clear (Clear) 04/23/18 15:40 Urine pH 5.0 (5.0-7.0) 04/23/18 15:40 Ur Specific [place] 1.017 (1.003-1.030) 04/23/18 15:40 Urine Protein 100 mg/dl mg/dL (Negative) 04/23/18 15:40 Urine Glucose (UA) Neg mg/dL (Negative) 04/23/18 15:40 Urine Ketones Neg mg/dL (Negative) 04/23/18 15:40 Urine Blood Sm (Negative) 04/23/18 15:40 Urine Nitrite Neg (Negative) 04/23/18 15:40 Urine Bilirubin Neg (Negative) 04/23/18 15:40 Urine Urobilinogen 2.0 mg/dL (<2.0) 04/23/18 15:40 Ur Leukocyte Esterase Mod (Negative) 04/23/18 15:40 Urine WBC (Auto) > 182.0 /HPF (0.0-6.0) H 04/23/18 15:40 Urine RBC (Auto) 17.0 /HPF (0.0-6.0) 04/23/18 15:40 U Epithel Cells (Auto) 8.0 /HPF (0-13.0) 04/23/18 15:40 Urine Bacteria (Auto) 4+ /HPF (Negative) 04/23/18 15:40 Urine WBC Clumps 3+ /HPF 04/23/18 15:40 Urine Mucus Few /HPF 04/23/18 15:40 Urine Opiates Screen Presumptive negative 04/23/18 15:40 Urine Methadone Screen Presumptive positive 04/23/18 15:40 Ur Barbiturates Screen Presumptive negative 04/23/18 15:40 Ur Phencyclidine Scrn Presumptive negative 04/23/18 15:40 Ur Amphetamines Screen Presumptive negative 04/23/18 15:40 U Benzodiazepines Scrn Presumptive negative 04/23/18 15:40 Urine Cocaine Screen Presumptive negative 04/23/18 15:40 U Marijuana (THC) Screen Presumptive negative 04/23/18 15:40 Drugs of Abuse Note Disclamer 04/23/18 15:40 Plasma/Serum Alcohol < 0.01 % (0-0.07) 04/23/18 17:09
--- NOTE | 2018-04-24 13:21 | Consultation ---
History of Present Illness Consult date: 04/24/18 Chief complaint: sacral wound - History of present illness History of present illness: 72 yo F with hx of DM, HTN, CAD, CHF who was brought to the ER by her family due to altered mental status and shallow breathing. The patient is a poor historian and all history is obtained from chart and her son at the bedside. Apparently, the patient lives alone and was doing well up until several months ago. Since then she has rapidly declined with her mental status, appetite, and general medical health. She often eats only one meal per day and was recently started on megestrol to increase her appetite. PEG tube was discussed with them in the past and they refused. Her family cares for her and turn her often to help offload the wounds. Past History Past Medical History: acute [place], CAD, COPD, diabetes, GERD, heart failure, hypertension, stroke, other Past Surgical History: CABG Social history: no significant social history Family history: no significant family history Medications and Allergies Allergies Allergy/AdvReac Type Severity Reaction Status Date / Time atorvastatin calcium Allergy Unknown Verified 10/06/17 13:37 [From Lipitor] Iodinated Contrast- Oral and Allergy Unknown Verified 10/06/17 13:37 IV Dye [Iodinated Contrast Media - IV Dye] Penicillins Allergy Unknown Verified 10/06/17 13:37 tomato Allergy Unknown Verified 10/06/17 13:37 Home Medications Medication Instructions Recorded Confirmed Last Taken Type Gabapentin 300 mg PO BID 09/11/14 04/23/18 02/19/16 History Aspirin [Aspirin BABY CHEW TAB] 81 mg PO QDAY #30 tab.chew 11/25/17 04/23/18 Unknown Rx Furosemide [Lasix TAB] 20 mg PO QDAY #30 tablet 11/25/17 04/23/18 Unknown Rx Metoprolol [Lopressor TAB] 12.5 mg PO BID #30 tablet 11/25/17 04/23/18 Unknown Rx traMADol [Ultram 50 MG tab] 50 mg PO BID #60 tablet 11/25/17 04/23/18 Unknown Rx Potassium Chloride 2 tab PO DAILY 14 Days #28 01/28/18 04/23/18 Unknown Rx tablet.er traMADol [Ultram 50 MG tab] 50 mg PO Q6HR PRN #20 tablet 01/28/18 04/23/18 Unknown Rx Active Meds: Active Medications Acetaminophen (Tylenol) 650 mg PO Q4H PRN PRN Reason: Pain MILD(1-3)/Fever >100.5/VARELA Aspirin (Baby Aspirin) 81 mg PO QDAY [facility] Last Admin: 04/24/18 10:13 Dose: 81 mg Enoxaparin Sodium (Lovenox) 30 mg SUB-Q QDAY@2200 [facility] Famotidine (Pepcid) 20 mg IV DAILY [facility] Last Admin: 04/24/18 10:12 Dose: 20 mg Furosemide (Lasix) 20 mg PO QDAY [facility] Last Admin: 04/24/18 10:12 Dose: 20 mg Gabapentin (Neurontin) 300 mg PO BID [facility] Last Admin: 04/24/18 10:12 Dose: 300 mg Sodium Chloride (Nacl 0.9% 1000 Ml) 1,000 mls @ 75 mls/hr IV DIRECT [facility] Last Admin: 04/24/18 01:04 Dose: 75 mls/hr Vancomycin HCl 750 mg/ Sodium (Chloride) 257.5 mls @ 166.667 mls/hr IV Q24H [facility] Cefepime HCl (Maxipime/Ns 1 Gm/100 Ml) 1 gm in 100 mls @ 200 mls/hr IV Q24H [facility] Last Admin: 04/24/18 10:12 Dose: 200 mls/hr Metoprolol Tartrate (Lopressor) 12.5 mg PO BID [facility] Last Admin: 04/24/18 10:12 Dose: 12.5 mg Morphine Sulfate (Morphine) 2 mg IV Q4H PRN PRN Reason: Pain, Moderate (4-6) Ondansetron HCl (Zofran) 4 mg IV Q8H PRN PRN Reason: Nausea And Vomiting Potassium Chloride (K-Dur) 20 meq PO QDAY [facility] Last Admin: 04/24/18 10:12 Dose: 20 meq Sodium Chloride (Sodium Chloride Flush Syringe 10 Ml) 10 ml IV BID [facility] Last Admin: 04/24/18 10:14 Dose: 10 ml Sodium Chloride (Sodium Chloride Flush Syringe 10 Ml) 10 ml IV PRN PRN PRN Reason: LINE FLUSH Vancomycin HCl (Vancomycin Pharmacy To Dose) 1 each IV PKCONSULT [facility]; Protocol Review of Systems ROS unobtainable: due to mental status Exam Vital Signs Pulse Resp 115 H 19 04/23/18 13:59 04/23/18 13:59 Narrative exam: Gen.: arousable, nonverbal. NAD. Cachectic CV: S1, S2 present Respiratory: CTAB, no w/r/r Abdomen: Soft, nondistended, NT. No rebound, rigidity, guarding Extremities: No clubbing, cyanosis, edema Sacrum: Left ischial and sacral decubitus wounds. The outer perimeter of the wounds appears clean. Both wounds have a central necrotic cap. There is no fluctuance, erythema, drainage, induration. Results - Labs 04/23/18 16:04 04/23/18 16:04 Abnormal lab results 04/23/18 04/23/18 04/23/18 Range/Units 15:40 16:04 16:04 WBC 24.9 H (4.5-11.0) K/mm3 MCH 26 L (28-32) pg RDW 16.6 H (13.2-15.2) % Seg Neuts % (Manual) 97.0 H (40.0-70.0) % Lymphocytes % (Manual) 1.5 L (13.4-35.0) % Seg Neutrophils # Man 24.2 H (1.8-7.7) K/mm3 Lymphocytes # (Manual) 0.4 L (1.2-5.4) K/mm3 PT 18.8 H (12.2-14.9) Sec. INR 1.48 H (0.87-1.13) POC ABG pH (7.35-7.45) POC ABG pO2 (80-105) VBG pH (7.320-7.420) Chloride (98-107) mmol/L BUN (7-17) mg/dL Creatinine (0.7-1.2) mg/dL Glucose (65-100) mg/dL POC Glucose (70-105) Lactic Acid (0.7-2.0) mmol/L Total Bilirubin (0.1-1.2) mg/dL AST (5-40) units/L Alkaline Phosphatase (35-129) units/L NT-Pro-B Natriuret Pep (0-900) pg/mL Total Protein (6.3-8.2) g/dL Albumin (3.9-5) g/dL Urine WBC (Auto) > 182.0 H (0.0-6.0) /HPF 04/23/18 04/23/18 04/23/18 Range/Units 16:04 16:04 16:04 WBC (4.5-11.0) K/mm3 MCH (28-32) pg RDW (13.2-15.2) % Seg Neuts % (Manual) (40.0-70.0) % Lymphocytes % (Manual) (13.4-35.0) % Seg Neutrophils # Man (1.8-7.7) K/mm3 Lymphocytes # (Manual) (1.2-5.4) K/mm3 PT (12.2-14.9) Sec. INR (0.87-1.13) POC ABG pH (7.35-7.45) POC ABG pO2 (80-105) VBG pH 7.308 L (7.320-7.420) Chloride 95.6 L (98-107) mmol/L BUN 24 H (7-17) mg/dL Creatinine 1.6 H (0.7-1.2) mg/dL Glucose 162 H (65-100) mg/dL POC Glucose (70-105) Lactic Acid 8.80 H* (0.7-2.0) mmol/L Total Bilirubin 1.90 H (0.1-1.2) mg/dL AST 68 H (5-40) units/L Alkaline Phosphatase 253 H (35-129) units/L NT-Pro-B Natriuret Pep (0-900) pg/mL Total Protein 5.8 L (6.3-8.2) g/dL Albumin 1.9 L (3.9-5) g/dL Urine WBC (Auto) (0.0-6.0) /HPF 04/23/18 04/23/18 04/23/18 Range/Units 16:04 16:44 23:03 WBC (4.5-11.0) K/mm3 MCH (28-32) pg RDW (13.2-15.2) % Seg Neuts % (Manual) (40.0-70.0) % Lymphocytes % (Manual) (13.4-35.0) % Seg Neutrophils # Man (1.8-7.7) K/mm3 Lymphocytes # (Manual) (1.2-5.4) K/mm3 PT (12.2-14.9) Sec. INR (0.87-1.13) POC ABG pH 7.470 H (7.35-7.45) POC ABG pO2 156 H (80-105) VBG pH (7.320-7.420) Chloride (98-107) mmol/L BUN (7-17) mg/dL Creatinine (0.7-1.2) mg/dL Glucose (65-100) mg/dL POC Glucose 158 H (70-105) Lactic Acid (0.7-2.0) mmol/L Total Bilirubin (0.1-1.2) mg/dL AST (5-40) units/L Alkaline Phosphatase (35-129) units/L NT-Pro-B Natriuret Pep 54434 H (0-900) pg/mL Total Protein (6.3-8.2) g/dL Albumin (3.9-5) g/dL Urine WBC (Auto) (0.0-6.0) /HPF 04/23/18 04/24/18 Range/Units 23:08 12:36 WBC (4.5-11.0) K/mm3 MCH (28-32) pg RDW (13.2-15.2) % Seg Neuts % (Manual) (40.0-70.0) % Lymphocytes % (Manual) (13.4-35.0) % Seg Neutrophils # Man (1.8-7.7) K/mm3 Lymphocytes # (Manual) (1.2-5.4) K/mm3 PT (12.2-14.9) Sec. INR (0.87-1.13) POC ABG pH (7.35-7.45) POC ABG pO2 (80-105) VBG pH (7.320-7.420) Chloride (98-107) mmol/L BUN (7-17) mg/dL Creatinine (0.7-1.2) mg/dL Glucose (65-100) mg/dL POC Glucose 109 H (70-105) Lactic Acid 3.00 H* (0.7-2.0) mmol/L Total Bilirubin (0.1-1.2) mg/dL AST (5-40) units/L Alkaline Phosphatase (35-129) units/L NT-Pro-B Natriuret Pep (0-900) pg/mL Total Protein (6.3-8.2) g/dL Albumin (3.9-5) g/dL Urine WBC (Auto) (0.0-6.0) /HPF Diabetes panel 04/23/18 04/23/18 Range/Units 16:04 23:13 Sodium 145 (137-145) mmol/L Potassium 4.0 (3.6-5.0) mmol/L Chloride 95.6 L (98-107) mmol/L Carbon Dioxide 27 (22-30) mmol/L BUN 24 H (7-17) mg/dL Creatinine 1.6 H (0.7-1.2) mg/dL Glucose 162 H (65-100) mg/dL Hemoglobin A1c 5.4 (4-6) % Calcium 8.4 (8.4-10.2) mg/dL AST 68 H (5-40) units/L ALT 14 (7-56) units/L Alkaline Phosphatase 253 H (35-129) units/L Total Protein 5.8 L (6.3-8.2) g/dL Albumin 1.9 L (3.9-5) g/dL Thyroid panel 04/23/18 Range/Units 14:25 TSH 1.830 (0.270-4.200) mlU/mL Calcium panel 04/23/18 Range/Units 16:04 Calcium 8.4 (8.4-10.2) mg/dL Albumin 1.9 L (3.9-5) g/dL Pituitary panel 04/23/18 04/23/18 Range/Units 14:25 16:04 Sodium 145 (137-145) mmol/L Potassium 4.0 (3.6-5.0) mmol/L Chloride 95.6 L (98-107) mmol/L Carbon Dioxide 27 (22-30) mmol/L BUN 24 H (7-17) mg/dL Creatinine 1.6 H (0.7-1.2) mg/dL Glucose 162 H (65-100) mg/dL Calcium 8.4 (8.4-10.2) mg/dL TSH 1.830 (0.270-4.200) mlU/mL Adrenal panel 04/23/18 Range/Units 16:04 Sodium 145 (137-145) mmol/L Potassium 4.0 (3.6-5.0) mmol/L Chloride 95.6 L (98-107) mmol/L Carbon Dioxide 27 (22-30) mmol/L BUN 24 H (7-17) mg/dL Creatinine 1.6 H (0.7-1.2) mg/dL Glucose 162 H (65-100) mg/dL Calcium 8.4 (8.4-10.2) mg/dL Total Bilirubin 1.90 H (0.1-1.2) mg/dL AST 68 H (5-40) units/L ALT 14 (7-56) units/L Alkaline Phosphatase 253 H (35-129) units/L Total Protein 5.8 L (6.3-8.2) g/dL Albumin 1.9 L (3.9-5) g/dL Assessment and Plan 72-year-old female with 1. UTI 2. left ischial and sacral decubitus ulcer - not infected, likely not cause of sepsis 3. sepsis 2/2 #1, 4. severe protein calorie malnutrition 5. diabetes Plan: 1. offloading, turn q2 2. wound care cs pending 3. hydrogel to left ischial and sacral decubitus wounds 4. optimize nutrition, nutrition consult 5. IV abx 6. trend WBC 7. I discussed the patient's condition with her son who is at the bedside. We discussed surgical debridement vs topical debridement of the wounds, need to improve nutrition, and offloading wound. We also discussed possible need for PEG tube since patient has no appetite and frequently only eats one small meal a day at baseline. He states the family has refused PEG in the past and surgical intervention in general. He will discuss with his family regarding surgical debridement. I will follow up on the decision tomorrow. Thank you for this consultation, please call with questions or concerns.
[2018-04-24] MEDS: VANCOMYCIN 750 MG in NACL 0.9% 250ML 250 ML IV SCH (17:29)
[2018-04-24 18:45] LABS: Basophils % (Auto) 0.1 % (0.0-1.8); Eosinophils % (Auto) 0.1 % (0.0-4.3); Hematocrit 33.9 % (30.3-42.9); Hemoglobin 10.5 gm/dl (10.1-14.3); Lymphocytes # (Auto) 1.4 K/mm3 (1.2-5.4); Lymphocytes % (Auto) 7.8 % (13.4-35.0); Mean Corpuscular HGB Conc 31 % (30-34); Mean Corpuscular Hemoglobin 26 pg (28-32); Mean Corpuscular Volume 85 fl (79-97); Monocytes # (Auto) 0.5 K/mm3 (0.0-0.8); Platelet Count 178 K/mm3 (140-440); Red Blood Count 3.98 M/mm3 (3.65-5.03); Red Cell Distribution Width 16.5 % (13.2-15.2)
[2018-04-24 18:56] LABS: Albumin 1.6 g/dL (3.9-5); Calcium 8.1 mg/dL (8.4-10.2)
[2018-04-24] MEDS: LOVENOX SUB-Q SCH (23:09)
[2018-04-25] MEDS: NACL 0.9% 1000 ML 1,000 ML IV SCH (01:19)
[2018-04-25] MEDS: MORPHINE IV PRN ×2 (05:50→20:48)
[2018-04-25 07:24] LABS: Hematocrit 31.8 % (30.3-42.9); Hemoglobin 9.9 gm/dl (10.1-14.3); Mean Corpuscular HGB Conc 31 % (30-34); Mean Corpuscular Hemoglobin 26 pg (28-32); Mean Corpuscular Volume 85 fl (79-97); Platelet Count 135 K/mm3 (140-440); Red Blood Count 3.76 M/mm3 (3.65-5.03); Red Cell Distribution Width 16.6 % (13.2-15.2)
[2018-04-25 07:48] LABS: Alanine Aminotransferase 12 units/L (7-56); Albumin 1.5 g/dL (3.9-5); BUN/Creatinine Ratio 24; Blood Urea Nitrogen 24 mg/dL (7-17); Calcium 7.7 mg/dL (8.4-10.2); Hemolysis Index 6
[2018-04-25] MEDS ORDERED: MAGNESIUM SULFATE 2GM/50ML 2 GM/50 ML BAG IV ONE (07:55)
--- NOTE | 2018-04-25 08:18 | Progress Note ---
Assessment and Plan Assessment and plan: 72-year-old female patient with significant history of congestive heart failure and diabetes mellitus sacral decubitus ulcers was admitted through emergency room with altered level of consciousness and failure to thrive with poor oral intake. Patient is being symptomatically managed with empiric antibiotics, surgery evaluated the patient, possible surgical debridement if needed, blood cultures 1;2 positive for staph aureus, and ID consulted --Staph aureus bacteremia; 1:2 blood cultures,ID cosult already on vancomycin, contact isolation until MRSA is ruled out --Stage IV decubitus ulcer; wound care,IV antibiotics Surgery following, possible surgical debridement if needed --Sepsis;due to UTI Continue Vanco and Zosyn, follow cultures --Lactic acidosis; secondary to sepsis Continue current management --Metabolic encephalopathy; probably due to sepsis Patient is noncommunicative --Acute on chronic systolic congestive heart failure; EF 10-15% Continue anti-failure medications, cardiology evaluation --History of coronary artery disease status post CABG; continue current cardiac medications, cardiology evaluation if needed --Severe malnutrition/hypoalbuminemia; nutrition supplement and supportive care, Nutrition consult poor oral intake, discussed with her daughter, agreed for [place]obb[place] feeding Patient may need PEG placement at some point --Code status discussed with the daughter at the bedside, will check with the family and inform us --Full code at this point Patient is critically ill with poor prognosis Plan of care reviewed with the patient's daughter at the bedside and her nurse Disposition; follow consultations and recommendations History Interval history: Sincerely and examined this morning medical records reviewed Patient is noncommunicative, not able to feed, refusing to eat Severe malnutrition Discussed with the daughter, the need for tube feeding and possible PEG placement Patient is cachectic, severely malnourished, emaciated Vital signs reviewed Hospitalist Physical - Constitutional Vitals: Temp Pulse Resp BP Pulse Ox 98 F 78 18 136/69 100 04/25/18 06:09 04/25/18 06:09 04/25/18 06:09 04/25/18 06:09 04/25/18 06:09 General appearance: Present: no acute distress, cachectic, disheveled, other ( chronically ill-looking) - EENT Eyes: Present: PERRL, EOM intact - Neck Neck: Present: supple. Absent: enlarged thyroid - Respiratory Respiratory effort: normal Respiratory: bilateral: diminished, negative: rales, rhonchi, wheezing - Cardiovascular Rhythm: regular Heart Sounds: Present: S1 & S2 - Extremities Extremities: no ischemia, No edema - Abdominal General gastrointestinal: soft, non-tender, non-distended, normal bowel sounds - Integumentary Integumentary: Present: clear, warm - Psychiatric Psychiatric: other (noncommunicative) - Neurologic Neurologic: other (noncommunicative) Results - Labs CBC & Chem 7: 04/25/18 06:38 04/25/18 06:38 Labs: Laboratory Last Values WBC 15.7 K/mm3 (4.5-11.0) H 04/25/18 06:38 RBC 3.76 M/mm3 (3.65-5.03) 04/25/18 06:38 Hgb 9.9 gm/dl (10.1-14.3) L 04/25/18 06:38 Hct 31.8 % (30.3-42.9) 04/25/18 06:38 MCV 85 fl (79-97) 04/25/18 06:38 MCH 26 pg (28-32) L 04/25/18 06:38 MCHC 31 % (30-34) 04/25/18 06:38 RDW 16.6 % (13.2-15.2) H 04/25/18 06:38 Plt Count 135 K/mm3 (140-440) L 04/25/18 06:38 Lymph % (Auto) 7.8 % (13.4-35.0) L 04/24/18 18:24 [place] % (Auto) 3.0 % (0.0-7.3) 04/24/18 18:24 Eos % (Auto) 0.1 % (0.0-4.3) 04/24/18 18:24 Baso % (Auto) 0.1 % (0.0-1.8) 04/24/18 18:24 Lymph # 1.4 K/mm3 (1.2-5.4) 04/24/18 18:24 [place] # 0.5 K/mm3 (0.0-0.8) 04/24/18 18:24 Eos # 0.0 K/mm3 (0.0-0.4) 04/24/18 18:24 Baso # 0.0 K/mm3 (0.0-0.1) 04/24/18 18:24 Add Manual Diff Complete 04/23/18 16:04 Total Counted 200 04/23/18 16:04 Seg Neutrophils % 89.0 % (40.0-70.0) H 04/24/18 18:24 Seg Neuts % (Manual) 97.0 % (40.0-70.0) H 04/23/18 16:04 Band Neutrophils % 0 % 04/23/18 16:04 Lymphocytes % (Manual) 1.5 % (13.4-35.0) L 04/23/18 16:04 Reactive Lymphs % (Man) 0 % 04/23/18 16:04 Monocytes % (Manual) 1.5 % (0.0-7.3) 04/23/18 16:04 Eosinophils % (Manual) 0 % (0.0-4.3) 04/23/18 16:04 Basophils % (Manual) 0 % (0.0-1.8) 04/23/18 16:04 Metamyelocytes % 0 % 04/23/18 16:04 Myelocytes % 0 % 04/23/18 16:04 Promyelocytes % 0 % 04/23/18 16:04 Blast Cells % 0 % 04/23/18 16:04 Nucleated RBC % Not Reportable 04/23/18 16:04 Seg Neutrophils # 15.5 K/mm3 (1.8-7.7) H 04/24/18 18:24 Seg Neutrophils # Man 24.2 K/mm3 (1.8-7.7) H 04/23/18 16:04 Band Neutrophils # 0.0 K/mm3 04/23/18 16:04 Lymphocytes # (Manual) 0.4 K/mm3 (1.2-5.4) L 04/23/18 16:04 Abs React Lymphs (Man) 0.0 K/mm3 04/23/18 16:04 Monocytes # (Manual) 0.4 K/mm3 (0.0-0.8) 04/23/18 16:04 Eosinophils # (Manual) 0.0 K/mm3 (0.0-0.4) 04/23/18 16:04 Basophils # (Manual) 0.0 K/mm3 (0.0-0.1) 04/23/18 16:04 Metamyelocytes # 0.0 K/mm3 04/23/18 16:04 Myelocytes # 0.0 K/mm3 04/23/18 16:04 Promyelocytes # 0.0 K/mm3 04/23/18 16:04 Blast Cells # 0.0 K/mm3 04/23/18 16:04 WBC Morphology Not Reportable 04/23/18 16:04 Hypersegmented Neuts Not Reportable 04/23/18 16:04 Hyposegmented Neuts Not Reportable 04/23/18 16:04 Hypogranular Neuts Not Reportable 04/23/18 16:04 Smudge Cells Not Reportable 04/23/18 16:04 Toxic Granulation Not Reportable 04/23/18 16:04 Toxic Vacuolation Not Reportable 04/23/18 16:04 Dohle Bodies Not Reportable 04/23/18 16:04 Pelger-Huet Anomaly Not Reportable 04/23/18 16:04 Rocío Rods Not Reportable 04/23/18 16:04 Platelet Estimate Consistent w auto 04/23/18 16:04 Clumped Platelets Not Reportable 04/23/18 16:04 Plt Clumps, EDTA Not Reportable 04/23/18 16:04 Large Platelets Not Reportable 04/23/18 16:04 Giant Platelets Not Reportable 04/23/18 16:04 Platelet Satelliting Not Reportable 04/23/18 16:04 Plt Morphology Comment Not Reportable 04/23/18 16:04 RBC Morphology Not Reportable 04/23/18 16:04 Dimorphic RBCs Not Reportable 04/23/18 16:04 Polychromasia Not Reportable 04/23/18 16:04 Hypochromasia Not Reportable 04/23/18 16:04 Poikilocytosis Not Reportable 04/23/18 16:04 Anisocytosis 1+ 04/23/18 16:04 Microcytosis Not Reportable 04/23/18 16:04 Macrocytosis Not Reportable 04/23/18 16:04 Spherocytes Not Reportable 04/23/18 16:04 Pappenheimer Bodies Not Reportable 04/23/18 16:04 Sickle Cells Not Reportable 04/23/18 16:04 Target Cells Not Reportable 04/23/18 16:04 Tear Drop Cells Not Reportable 04/23/18 16:04 Ovalocytes Not Reportable 04/23/18 16:04 Helmet Cells Not Reportable 04/23/18 16:04 [place] Bodies Not Reportable 04/23/18 16:04 [place] Rings Not Reportable 04/23/18 16:04 [place] Cells Not Reportable 04/23/18 16:04 Bite Cells Not Reportable 04/23/18 16:04 Crenated Cell Not Reportable 04/23/18 16:04 Elliptocytes Not Reportable 04/23/18 16:04 Acanthocytes (Spur) Not Reportable 04/23/18 16:04 Rouleaux Not Reportable 04/23/18 16:04 Hemoglobin C Crystals Not Reportable 04/23/18 16:04 Schistocytes Not Reportable 04/23/18 16:04 Malaria parasites Not Reportable 04/23/18 16:04 Trev Bodies Not Reportable 04/23/18 16:04 Hem Pathologist Commnt No 04/23/18 16:04 PT 18.8 Sec. (12.2-14.9) H 04/23/18 16:04 INR 1.48 (0.87-1.13) H 04/23/18 16:04 POC ABG pH 7.470 (7.35-7.45) H 04/23/18 16:44 POC ABG pCO2 42.7 (35-45) 04/23/18 16:44 POC ABG pO2 156 (80-105) H 04/23/18 16:44 POC ABG HCO3 31.1 04/23/18 16:44 POC ABG Total CO2 32 04/23/18 16:44 POC ABG O2 Sat 99 04/23/18 16:44 POC ABG Base Excess 7 04/23/18 16:44 VBG pH 7.308 (7.320-7.420) L 04/23/18 16:04 FiO2 36 % 04/23/18 16:44 Sodium 150 mmol/L (137-145) H 04/25/18 06:38 Potassium 3.0 mmol/L (3.6-5.0) L 04/25/18 06:38 Chloride 107.9 mmol/L (98-107) H 04/25/18 06:38 Carbon Dioxide 29 mmol/L (22-30) 04/25/18 06:38 Anion Gap 16 mmol/L 04/25/18 06:38 BUN 24 mg/dL (7-17) H 04/25/18 06:38 Creatinine 1.0 mg/dL (0.7-1.2) 04/25/18 06:38 Estimated GFR > 60 ml/min 04/25/18 06:38 BUN/Creatinine Ratio 24 % 04/25/18 06:38 Glucose 58 mg/dL (65-100) L 04/25/18 06:38 POC Glucose 110 (70-105) H 04/24/18 15:38 Hemoglobin A1c 5.4 % (4-6) 04/23/18 23:13 Lactic Acid 1.80 mmol/L (0.7-2.0) 04/24/18 18:24 Calcium 7.7 mg/dL (8.4-10.2) L 04/25/18 06:38 Phosphorus 2.60 mg/dL (2.5-4.5) 04/25/18 06:38 Magnesium 1.60 mg/dL (1.7-2.3) L 04/25/18 06:38 Total Bilirubin 1.30 mg/dL (0.1-1.2) H 04/25/18 06:38 AST 23 units/L (5-40) 04/25/18 06:38 ALT 12 units/L (7-56) 04/25/18 06:38 Alkaline Phosphatase 166 units/L (35-129) H 04/25/18 06:38 NT-Pro-B Natriuret Pep 65804 pg/mL (0-900) H 04/23/18 16:04 Total Protein 4.8 g/dL (6.3-8.2) L 04/25/18 06:38 Albumin 1.5 g/dL (3.9-5) L 04/25/18 06:38 Albumin/Globulin Ratio 0.5 % 04/25/18 06:38 TSH 1.830 mlU/mL (0.270-4.200) 04/23/18 14:25 Urine Color Evangelina (Yellow) 04/23/18 15:40 Urine Turbidity Clear (Clear) 04/23/18 15:40 Urine pH 5.0 (5.0-7.0) 04/23/18 15:40 Ur Specific [place] 1.017 (1.003-1.030) 04/23/18 15:40 Urine Protein 100 mg/dl mg/dL (Negative) 04/23/18 15:40 Urine Glucose (UA) Neg mg/dL (Negative) 04/23/18 15:40 Urine Ketones Neg mg/dL (Negative) 04/23/18 15:40 Urine Blood Sm (Negative) 04/23/18 15:40 Urine Nitrite Neg (Negative) 04/23/18 15:40 Urine Bilirubin Neg (Negative) 04/23/18 15:40 Urine Urobilinogen 2.0 mg/dL (<2.0) 04/23/18 15:40 Ur Leukocyte Esterase Mod (Negative) 04/23/18 15:40 Urine WBC (Auto) > 182.0 /HPF (0.0-6.0) H 04/23/18 15:40 Urine RBC (Auto) 17.0 /HPF (0.0-6.0) 04/23/18 15:40 U Epithel Cells (Auto) 8.0 /HPF (0-13.0) 04/23/18 15:40 Urine Bacteria (Auto) 4+ /HPF (Negative) 04/23/18 15:40 Urine WBC Clumps 3+ /HPF 04/23/18 15:40 Urine Mucus Few /HPF 04/23/18 15:40 Urine Opiates Screen Presumptive negative 04/23/18 15:40 Urine Methadone Screen Presumptive positive 04/23/18 15:40 Ur Barbiturates Screen Presumptive negative 04/23/18 15:40 Ur Phencyclidine Scrn Presumptive negative 04/23/18 15:40 Ur Amphetamines Screen Presumptive negative 04/23/18 15:40 U Benzodiazepines Scrn Presumptive negative 04/23/18 15:40 Urine Cocaine Screen Presumptive negative 04/23/18 15:40 U Marijuana (THC) Screen Presumptive negative 04/23/18 15:40 Drugs of Abuse Note Disclamer 04/23/18 15:40 Plasma/Serum Alcohol < 0.01 % (0-0.07) 04/23/18 17:09
[2018-04-25] MEDS ORDERED: SIMPLE SYRUP FEEDTUBE PRN ×4 (08:39→10:31)
[2018-04-25] MEDS ORDERED: PANCREAZE DR 10,500 UNIT FEEDTUBE PRN ×2 (08:39→10:31)
[2018-04-25] MEDS ORDERED: SODIUM BICARBONATE FEEDTUBE PRN ×2 (09:00→10:31)
[2018-04-25] MEDS ORDERED: MAGNESIUM SULFATE 2 GM in NACL 0.9% 50 ML IV ONE (09:00)
[2018-04-25 09:16] LABS: Band Neutrophils # (Manual) 0.3 K/mm3; Basophils % (Manual) 0 % (0.0-1.8); Eosinophils % (Manual) 0 % (0.0-4.3); Total Cells Counted 100
[2018-04-25 09:17] LABS: Anisocytosis 1+; Hypochromasia Few; Platelet Estimate Cons
--- NOTE | 2018-04-25 10:00 | Consultation ---
History of Present Illness - Reason for Consult Consult date: 04/25/18 Staph aureus bacteremia Requesting physician: SHAKIRA NG - History of Present Illness 72 y/o female with history of congestive heart failure, diabetes, cognitive deficit, noncommunicable, sacral decubitus ulcers; admitted due to altered mental status and progressive SOB. Patient has been mostly bed ridden since Oct 2016. As per the patient's daughter, the patient has exhibited a constant severe decrease in mental status for 24h and anorexia. Per daughter, she developed sacral decubitus while admitted at [facility]. In the ED< temp, 99.1, HR 115, R19, BP 87/56, WBC 24.9K, Hg 11.1, Plat 247. Creat 1.2. Lactate 1.8. Total bili 1.4. CXR new RLL consolidation. Microbiology: Blood cultures: 04/23 Staph aureus 1 of 04/25 ngtd Urine cultures: Respiratory cultures: Current Antimicrobials: Vancomycin Cefepime Previous Antimicrobials: Past History Past Medical History: acute [place], CAD, COPD, diabetes, GERD, heart failure, hypertension, stroke, other Past Surgical History: CABG Social history: no significant social history Family history: no significant family history Medications and Allergies Allergies Allergy/AdvReac Type Severity Reaction Status Date / Time atorvastatin calcium Allergy Unknown Verified 10/06/17 13:37 [From Lipitor] Iodinated Contrast- Oral and Allergy Unknown Verified 10/06/17 13:37 IV Dye [Iodinated Contrast Media - IV Dye] Penicillins Allergy Unknown Verified 10/06/17 13:37 tomato Allergy Unknown Verified 10/06/17 13:37 Home Medications Medication Instructions Recorded Confirmed Last Taken Type Gabapentin 300 mg PO BID 09/11/14 04/23/18 02/19/16 History Aspirin [Aspirin BABY CHEW TAB] 81 mg PO QDAY #30 tab.chew 11/25/17 04/23/18 Unknown Rx Furosemide [Lasix TAB] 20 mg PO QDAY #30 tablet 11/25/17 04/23/18 Unknown Rx Metoprolol [Lopressor TAB] 12.5 mg PO BID #30 tablet 11/25/17 04/23/18 Unknown Rx traMADol [Ultram 50 MG tab] 50 mg PO BID #60 tablet 11/25/17 04/23/18 Unknown Rx Potassium Chloride 2 tab PO DAILY 14 Days #28 01/28/18 04/23/18 Unknown Rx tablet.er traMADol [Ultram 50 MG tab] 50 mg PO Q6HR PRN #20 tablet 01/28/18 04/23/18 Unknown Rx Active Meds: Active Medications Acetaminophen (Tylenol) 650 mg PO Q4H PRN PRN Reason: Pain MILD(1-3)/Fever >100.5/VARELA Lipase/Protease/Amylase (Pancreaze Dr 10,500 Unit) 1 each FEEDTUBE PRN PRN PRN Reason: For Clogged Feeding Tube Aspirin (Baby Aspirin) 81 mg PO QDAY [facility] Last Admin: 04/24/18 10:13 Dose: 81 mg Enoxaparin Sodium (Lovenox) 30 mg SUB-Q QDAY@2200 [facility] Last Admin: 04/24/18 23:09 Dose: 30 mg Famotidine (Pepcid) 20 mg IV DAILY [facility] Last Admin: 04/24/18 10:12 Dose: 20 mg Furosemide (Lasix) 20 mg PO QDAY [facility] Last Admin: 04/24/18 10:12 Dose: 20 mg Gabapentin (Neurontin) 300 mg PO BID [facility] Last Admin: 04/24/18 23:11 Dose: Not Given Sodium Chloride (Nacl 0.9% 1000 Ml) 1,000 mls @ 75 mls/hr IV DIRECT [facility] Last Admin: 04/25/18 01:19 Dose: 75 mls/hr Vancomycin HCl 750 mg/ Sodium (Chloride) 257.5 mls @ 166.667 mls/hr IV Q24H [facility] Last Admin: 04/24/18 17:29 Dose: 166.667 mls/hr Cefepime HCl (Maxipime/Ns 1 Gm/100 Ml) 1 gm in 100 mls @ 200 mls/hr IV Q24H [facility] Last Admin: 04/24/18 10:12 Dose: 200 mls/hr Magnesium Sulfate 2 gm/ Sodium (Chloride) 54 mls @ 25 mls/hr IV ONCE ONE Stop: 04/25/18 11:09 Metoprolol Tartrate (Lopressor) 12.5 mg PO BID [facility] Last Admin: 04/24/18 23:10 Dose: Not Given Morphine Sulfate (Morphine) 2 mg IV Q4H PRN PRN Reason: Pain, Moderate (4-6) Last Admin: 04/25/18 05:50 Dose: 2 mg Ondansetron HCl (Zofran) 4 mg IV Q8H PRN PRN Reason: Nausea And Vomiting Potassium Chloride (K-Dur) 20 meq PO QDAY [facility] Last Admin: 04/24/18 10:12 Dose: 20 meq Potassium Chloride (K-Dur) 40 meq PO Q3H [facility] Stop: 04/25/18 11:01 Simple Syrup (Simple Syrup) 15 ml FEEDTUBE PRN PRN PRN Reason: Hypoglycemia Simple Syrup (Simple Syrup) 30 ml FEEDTUBE PRN PRN PRN Reason: Hypoglycemia Sodium Bicarbonate (Sodium Bicarbonate) 325 mg FEEDTUBE PRN PRN PRN Reason: For Clogged Feeding Tube Sodium Chloride (Sodium Chloride Flush Syringe 10 Ml) 10 ml IV BID [facility] Last Admin: 04/24/18 23:11 Dose: Not Given Sodium Chloride (Sodium Chloride Flush Syringe 10 Ml) 10 ml IV PRN PRN PRN Reason: LINE FLUSH Vancomycin HCl (Vancomycin Pharmacy To Dose) 1 each IV PKCONSULT [facility]; Protocol Physical Examination - Physical Exam Narrative exam: General appearance: Alert in NAD,non conversant Eyes: anicteric sclerae, moist conjunctivae; no lid-lag; PERRLA HENT: Atraumatic; oropharynx limited edentulous Neck: Trachea midline; supple, no thyromegaly or lymphadenopathy Lungs: distant BS felicia CV: irreg Abdomen: Soft, non-tender Extremities: No peripheral edema or extremity lymphadenopathy Skin: NON-STAGEABLE PRESSURE INJURY TO SACRAL AREA-ULCER MEASURES 4X7.5X0.1-NO DRAINAGE PRESENT-NECROTIC TISSUE PRESENT TO MAJORITY OF ULCER-HYDROCOLLOID APPLIED TO ULCER TO PROMOTE AUTOLYTIC DEBRIDEMENT NON-STAGEABLE PRESSURE INJURY TO RIGHT BUTTOCKS-ULCER MEASURES 4X3X0.1-NO DRAINAGE PRESENT-NECROTIC TISSUE TO MAJORITY OF ULCER-HYDROCOLLOID APPLIED TO PROMOTE AUTOLYTIC DEBRIDEMENT Psych: Appropriate affect, alert and oriented to person, place and time. Neuro: alert and oriented x 3. Moving all extermities Lines: No CVL / PICC - Constitutional Vitals: Vital Signs Temp Pulse Resp BP Pulse Ox 98 F 78 18 136/69 100 04/25/18 06:09 04/25/18 06:09 04/25/18 06:09 04/25/18 06:09 04/25/18 06:09 Temperature -Last 24 Hours Temperature 98 F Temperature 97.6 F Temperature 97.6 F Temperature 98.0 F Temperature 97.8 F Results - Labs CBC & Chem 7: 04/25/18 06:38 04/25/18 06:38 Labs: Abnormal lab results 04/23/18 04/23/18 04/23/18 Range/Units 16:04 16:04 16:04 WBC (4.5-11.0) K/mm3 Hgb (10.1-14.3) gm/dl MCH (28-32) pg RDW (13.2-15.2) % Plt Count (140-440) K/mm3 Lymph % (Auto) (13.4-35.0) % Seg Neutrophils % (40.0-70.0) % Seg Neuts % (Manual) (40.0-70.0) % Lymphocytes % (Manual) (13.4-35.0) % Seg Neutrophils # (1.8-7.7) K/mm3 Seg Neutrophils # Man (1.8-7.7) K/mm3 Lymphocytes # (Manual) (1.2-5.4) K/mm3 PT 18.8 H (12.2-14.9) Sec. INR 1.48 H (0.87-1.13) VBG pH (7.320-7.420) Sodium (137-145) mmol/L Potassium (3.6-5.0) mmol/L Chloride 95.6 L (98-107) mmol/L BUN 24 H (7-17) mg/dL Creatinine 1.6 H (0.7-1.2) mg/dL Glucose 162 H (65-100) mg/dL POC Glucose (70-105) Lactic Acid 8.80 H* (0.7-2.0) mmol/L Calcium (8.4-10.2) mg/dL Magnesium (1.7-2.3) mg/dL Total Bilirubin 1.90 H (0.1-1.2) mg/dL AST 68 H (5-40) units/L Alkaline Phosphatase 253 H (35-129) units/L Total Protein 5.8 L (6.3-8.2) g/dL Albumin 1.9 L (3.9-5) g/dL 04/23/18 04/24/18 04/24/18 Range/Units 16:04 12:36 15:38 WBC (4.5-11.0) K/mm3 Hgb (10.1-14.3) gm/dl MCH (28-32) pg RDW (13.2-15.2) % Plt Count (140-440) K/mm3 Lymph % (Auto) (13.4-35.0) % Seg Neutrophils % (40.0-70.0) % Seg Neuts % (Manual) (40.0-70.0) % Lymphocytes % (Manual) (13.4-35.0) % Seg Neutrophils # (1.8-7.7) K/mm3 Seg Neutrophils # Man (1.8-7.7) K/mm3 Lymphocytes # (Manual) (1.2-5.4) K/mm3 PT (12.2-14.9) Sec. INR (0.87-1.13) VBG pH 7.308 L (7.320-7.420) Sodium (137-145) mmol/L Potassium (3.6-5.0) mmol/L Chloride (98-107) mmol/L BUN (7-17) mg/dL Creatinine (0.7-1.2) mg/dL Glucose (65-100) mg/dL POC Glucose 109 H 110 H (70-105) Lactic Acid (0.7-2.0) mmol/L Calcium (8.4-10.2) mg/dL Magnesium (1.7-2.3) mg/dL Total Bilirubin (0.1-1.2) mg/dL AST (5-40) units/L Alkaline Phosphatase (35-129) units/L Total Protein (6.3-8.2) g/dL Albumin (3.9-5) g/dL 04/24/18 04/24/18 04/25/18 Range/Units 18:24 18:24 06:38 WBC 17.4 H 15.7 H (4.5-11.0) K/mm3 Hgb 9.9 L (10.1-14.3) gm/dl MCH 26 L 26 L (28-32) pg RDW 16.5 H 16.6 H (13.2-15.2) % Plt Count 135 L (140-440) K/mm3 Lymph % (Auto) 7.8 L (13.4-35.0) % Seg Neutrophils % 89.0 H (40.0-70.0) % Seg Neuts % (Manual) 95.0 H (40.0-70.0) % Lymphocytes % (Manual) 1.0 L (13.4-35.0) % Seg Neutrophils # 15.5 H (1.8-7.7) K/mm3 Seg Neutrophils # Man 14.9 H (1.8-7.7) K/mm3 Lymphocytes # (Manual) 0.2 L (1.2-5.4) K/mm3 PT (12.2-14.9) Sec. INR (0.87-1.13) VBG pH (7.320-7.420) Sodium (137-145) mmol/L Potassium 3.5 L (3.6-5.0) mmol/L Chloride (98-107) mmol/L BUN 26 H (7-17) mg/dL Creatinine (0.7-1.2) mg/dL Glucose (65-100) mg/dL POC Glucose (70-105) Lactic Acid (0.7-2.0) mmol/L Calcium 8.1 L (8.4-10.2) mg/dL Magnesium (1.7-2.3) mg/dL Total Bilirubin 1.40 H (0.1-1.2) mg/dL AST (5-40) units/L Alkaline Phosphatase 203 H (35-129) units/L Total Protein 5.4 L (6.3-8.2) g/dL Albumin 1.6 L (3.9-5) g/dL 04/25/18 Range/Units 06:38 WBC (4.5-11.0) K/mm3 Hgb (10.1-14.3) gm/dl MCH (28-32) pg RDW (13.2-15.2) % Plt Count (140-440) K/mm3 Lymph % (Auto) (13.4-35.0) % Seg Neutrophils % (40.0-70.0) % Seg Neuts % (Manual) (40.0-70.0) % Lymphocytes % (Manual) (13.4-35.0) % Seg Neutrophils # (1.8-7.7) K/mm3 Seg Neutrophils # Man (1.8-7.7) K/mm3 Lymphocytes # (Manual) (1.2-5.4) K/mm3 PT (12.2-14.9) Sec. INR (0.87-1.13) VBG pH (7.320-7.420) Sodium 150 H (137-145) mmol/L Potassium 3.0 L (3.6-5.0) mmol/L Chloride 107.9 H (98-107) mmol/L BUN 24 H (7-17) mg/dL Creatinine (0.7-1.2) mg/dL Glucose 58 L (65-100) mg/dL POC Glucose (70-105) Lactic Acid (0.7-2.0) mmol/L Calcium 7.7 L (8.4-10.2) mg/dL Magnesium 1.60 L (1.7-2.3) mg/dL Total Bilirubin 1.30 H (0.1-1.2) mg/dL AST (5-40) units/L Alkaline Phosphatase 166 H (35-129) units/L Total Protein 4.8 L (6.3-8.2) g/dL Albumin 1.5 L (3.9-5) g/dL Assessment and Plan Assessment: 1) Sepsis: present on admission, manifested by low grade fever, hypotension, leukocytosis, tachycardia; etiology - Staph bacteremia 2) Staph aureus bacteremia: source likely sacral decubitus vs. pneumonia 3) Non stageable sacral ulcer 4x7.5x0.1cm and Non stageable right buttocks ucler 4x3x0.1: ? infected 4) Presumed pneumonia 5) Diabetes 6) Acute encephalopathy 7) Congestive heart failure Plan: -follow-up blood cx ID and MICs -repeat blood cx -pelvic CT -TTE -Continue vanco and cefepime for now -wound care guarded prognosis Thank you for your consultation, will follow up with you. Cami Allen MD Infectious Diseases Specialist [facility] ([facility] M [phone] O [phone]
[2018-04-25] MEDS ORDERED: ATIVAN IV ONE (11:00)
[2018-04-25] MEDS ORDERED: ATIVAN ONE (11:08)
[2018-04-25] MEDS: PEPCID IV SCH (11:30)
[2018-04-25] MEDS: NEURONTIN PO SCH (12:58)
[2018-04-25] MEDS: LOPRESSOR PO SCH ×2 (12:58→22:00)
[2018-04-25] MEDS: SODIUM CHLORIDE FLUSH SYRINGE 10 ML IV SCH (12:59)
[2018-04-25] MEDS: MAXIPIME/NS 1 GM/100 ML 1 GM/100 ML BAG IV SCH (13:04)
[2018-04-25] MEDS: K-DUR PO SCH ×2 (13:06→13:08)
--- NOTE | 2018-04-25 13:59 | XRay Report ---
AP ABDOMEN: HISTORY: Dobbhoff tube placement.. The distal tip of the Dobbhoff tube terminates in the body of the stomach. The abdominal gas pattern is unremarkable. No masses or organomegaly is identified and there is no gross evidence of free air or fluid. No significant soft tissue calcifications are noted. IMPRESSION: Unremarkable abdomen.
--- NOTE | 2018-04-25 17:15 | Progress Note ---
Assessment and Plan 72-year-old female with 1. UTI 2. left ischial and sacral decubitus ulcer - not infected, likely not cause of sepsis 3. sepsis 2/2 #1, 4. severe protein calorie malnutrition 5. diabetes Plan: 1. offloading, turn q2 2. d/w wound care nurse - agrees that wounds appears noninfected. Duoderm applied to help with topical gentle debridement of wound - pt has appointment to follow up in wound care clinic on 4. optimize nutrition, Start TF via dobhoff 5. IV abx 6. trend WBC - improving 7. I discussed the patient's condition with her daughter who is at the bedside. We discussed surgical debridement vs topical debridement of the wounds, need to improve nutrition, and offloading wound. I recommended PEG tube placement especially if they are hoping to be aggressive with wound care. I stressed the importance of nutrition for wound healing. She understands. Will continue conservative measures for wound care at this time including daily dressing changes. Pt to follow up in wound care clinic on discharge for further follow up. Thank you for this consultation, please call with questions or concerns. Subjective Date of service: 04/25/18 Narrative: Pt seen and examined. No overnight events. Daughter at bedside. Objective Vital Signs - 12hr 04/25/18 04/25/18 04/25/18 06:09 08:31 10:00 Temperature 98 F 97.9 F Pulse Rate 78 Respiratory 18 14 Rate Blood Pressure 125/60 Blood Pressure 136/69 [Left] O2 Sat by Pulse 100 98 Oximetry 04/25/18 04/25/18 04/25/18 12:00 14:23 14:33 Temperature 98.4 F 98.4 F Pulse Rate 80 88 Respiratory 22 22 Rate Blood Pressure 115/70 Blood Pressure 115/70 [Left] O2 Sat by Pulse 100 95 Oximetry - General physical appearance Narrative Exam: Gen: sleeping. NAD ENT: Dobhoff in place CV: s1, S2+ resp: even and unlabored - Labs 04/25/18 06:38 04/25/18 06:38 Diabetes panel 04/23/18 04/24/18 04/25/18 Range/Units 16:04 18:24 06:38 Sodium 145 145 150 H (137-145) mmol/L Potassium 4.0 3.5 L 3.0 L (3.6-5.0) mmol/L Chloride 95.6 L 103.0 107.9 H (98-107) mmol/L Carbon Dioxide 27 30 29 (22-30) mmol/L BUN 24 H 26 H 24 H (7-17) mg/dL Creatinine 1.6 H 1.2 1.0 (0.7-1.2) mg/dL Glucose 162 H 80 58 L (65-100) mg/dL Calcium 8.4 8.1 L 7.7 L (8.4-10.2) mg/dL AST 68 H 37 23 (5-40) units/L ALT 14 16 12 (7-56) units/L Alkaline Phosphatase 253 H 203 H 166 H (35-129) units/L Total Protein 5.8 L 5.4 L 4.8 L (6.3-8.2) g/dL Albumin 1.9 L 1.6 L 1.5 L (3.9-5) g/dL Calcium panel 04/23/18 04/24/18 04/25/18 Range/Units 16:04 18:24 06:38 Calcium 8.4 8.1 L 7.7 L (8.4-10.2) mg/dL Phosphorus 2.60 (2.5-4.5) mg/dL Albumin 1.9 L 1.6 L 1.5 L (3.9-5) g/dL Pituitary panel 04/23/18 04/24/18 04/25/18 Range/Units 16:04 18:24 06:38 Sodium 145 145 150 H (137-145) mmol/L Potassium 4.0 3.5 L 3.0 L (3.6-5.0) mmol/L Chloride 95.6 L 103.0 107.9 H (98-107) mmol/L Carbon Dioxide 27 30 29 (22-30) mmol/L BUN 24 H 26 H 24 H (7-17) mg/dL Creatinine 1.6 H 1.2 1.0 (0.7-1.2) mg/dL Glucose 162 H 80 58 L (65-100) mg/dL Calcium 8.4 8.1 L 7.7 L (8.4-10.2) mg/dL Adrenal panel 04/23/18 04/24/18 04/25/18 Range/Units 16:04 18:24 06:38 Sodium 145 145 150 H (137-145) mmol/L Potassium 4.0 3.5 L 3.0 L (3.6-5.0) mmol/L Chloride 95.6 L 103.0 107.9 H (98-107) mmol/L Carbon Dioxide 27 30 29 (22-30) mmol/L BUN 24 H 26 H 24 H (7-17) mg/dL Creatinine 1.6 H 1.2 1.0 (0.7-1.2) mg/dL Glucose 162 H 80 58 L (65-100) mg/dL Calcium 8.4 8.1 L 7.7 L (8.4-10.2) mg/dL Total Bilirubin 1.90 H 1.40 H 1.30 H (0.1-1.2) mg/dL AST 68 H 37 23 (5-40) units/L ALT 14 16 12 (7-56) units/L Alkaline Phosphatase 253 H 203 H 166 H (35-129) units/L Total Protein 5.8 L 5.4 L 4.8 L (6.3-8.2) g/dL Albumin 1.9 L 1.6 L 1.5 L (3.9-5) g/dL
[2018-04-25] MEDS: VANCOMYCIN 750 MG in NACL 0.9% 250ML 250 ML IV SCH (18:28)
[2018-04-25] MEDS: LOVENOX SUB-Q SCH (22:00)
[2018-04-26] MEDS: MORPHINE IV PRN (07:58)
--- NOTE | 2018-04-26 09:24 | Cat Scan Report ---
CT ABDOMEN PELVIS WITHOUT CONTRAST: HISTORY: Staph septicemia, sacral decubitus ulcer. COMPARISON: 11/20/17. TECHNIQUE: Helical CT in 1.25mm intervals without IV contrast. Sagittal and coronal reconstructions. FINDINGS: Lung bases: A small to moderate right pneumothorax is identified at the right lung base measuring up to 2.2 cm in thickness. This appears to be a new finding. Small bilateral layering pleural effusions are identified. There are bilateral lower lobe infiltrates or atelectasis. Heart size is normal. Liver: Normal. Biliary system: Multiple small and large calcified gallstones are identified in the fundus of the gallbladder. No biliary dilatation or inflammation is appreciated. Pancreas: Normal. Spleen: Within normal limits. Scattered calcified granulomas. Kidneys/ureters/bladder: 3 stones at the inferior pole the left kidney are unchanged measuring up to 5 mm. The kidneys, ureters and bladder are unremarkable otherwise. Adrenal glands: Normal. Aorta: Mild diffuse calcifications. No aneurysm. Intestines: No oral contrast was administered which limits this exam. No evidence for bowel obstruction. Diverticulosis of the cecum and sigmoid colon are noted. No obvious focal inflammation or mass. Appendix: Normal. Pelvic viscera: Normal. Ascites: None. Adenopathy: None. Musculoskeletal: Mild osteopenia and degenerative changes. No suspicious bony lesion or acute fracture. No large decubitus ulcer extending to bone is identified. No signs of osteomyelitis. IMPRESSION: Right pneumothorax estimated at 25%. Bibasilar infiltrates or atelectasis. Correlate for aspiration. Small layering pleural effusions are also identified. Cholelithiasis. Left nephrolithiasis, nonobstructing. Mild diverticulosis of the colon. These findings were relayed to the patient's RN, Ca, at 0910 hours
[2018-04-26] MEDS: MAXIPIME/NS 1 GM/100 ML 1 GM/100 ML BAG IV SCH (09:29)
[2018-04-26] MEDS: NEURONTIN PO SCH ×2 (10:37→22:45)
[2018-04-26] MEDS: PEPCID IV SCH (10:37)
[2018-04-26] MEDS: BABY ASPIRIN PO SCH (10:40)
[2018-04-26] MEDS: LASIX PO SCH (10:40)
[2018-04-26] MEDS: SODIUM CHLORIDE FLUSH SYRINGE 10 ML IV SCH (10:41)
[2018-04-26] MEDS: LOPRESSOR PO SCH ×2 (10:53→22:56)
[2018-04-26] MEDS: K-DUR PO SCH (10:54)
--- NOTE | 2018-04-26 11:04 | Progress Note ---
Assessment and Plan Assessment: 1) Sepsis: better; etiology - Staph bacteremia 2) MSSA bacteremia: source likely sacral decubitus vs. pneumonia -Blood cx 04/23 MSSA 1 of 4 bottles -Blood cx 04/25 no growth so far -TTE EF 15-20%, severe MR/TR, no vegetations 3) Non stageable sacral ulcer 4x7.5x0.1cm and Non stageable right buttocks ucler 4x3x0.1: ? infected -CT pelvis NO osteo NO abscess 4) Bilateral pneumonia pneumonia 5) Diabetes 6) Acute encephalopathy 7) Congestive heart failure 8) Right sided pneumothorax 25% Plan: -pneumothorax per IMS -stop contact -stop vanco and cefepime -start cefazolin -f/u repeat blood cx -upon discharge will do cefazolin 2 g IV q8h total 14 days until 05/08/18 -Consider hospice, poor prognosis with Staph septicemia, sacral dec and severe cardiomyopathy Thank you for your consultation, will follow up with you. Cami Allen MD Infectious Diseases Specialist [facility] M [phone] O [phone] Subjective Date of service: 04/26/18 Principal diagnosis: Staph bacteremia Interval history: Remains non verbal in NAD Microbiology: Blood cultures: 04/23 MSSA 1 of 4 04/25 ngtd Urine cultures: Respiratory cultures: Current Antimicrobials: Vancomycin Cefepime Objective - Exam Narrative Exam: General appearance: Alert in NAD,non conversant Eyes: anicteric sclerae, moist conjunctivae; no lid-lag; PERRLA HENT: Atraumatic; oropharynx limited edentulous Neck: Trachea midline; supple, no thyromegaly or lymphadenopathy Lungs: distant BS fleicia CV: irreg Abdomen: Soft, non-tender Extremities: No peripheral edema or extremity lymphadenopathy Skin: NON-STAGEABLE PRESSURE INJURY TO SACRAL AREA-ULCER MEASURES 4X7.5X0.1-NO DRAINAGE PRESENT-NECROTIC TISSUE PRESENT TO MAJORITY OF ULCER-HYDROCOLLOID APPLIED TO ULCER TO PROMOTE AUTOLYTIC DEBRIDEMENT NON-STAGEABLE PRESSURE INJURY TO RIGHT BUTTOCKS-ULCER MEASURES 4X3X0.1-NO DRAINAGE PRESENT-NECROTIC TISSUE TO MAJORITY OF ULCER-HYDROCOLLOID APPLIED TO PROMOTE AUTOLYTIC DEBRIDEMENT Psych: Appropriate affect, alert and oriented to person, place and time. Neuro: alert and oriented x 3. Moving all extermities Lines: No CVL / PICC - Constitutional Vitals: Vital Signs Temp Pulse Resp BP Pulse Ox 97.8 F 93 H 18 138/69 100 04/26/18 07:30 04/26/18 10:53 04/26/18 07:30 04/26/18 10:53 04/26/18 07:30 Temperature -Last 24 Hours Temperature 97.8 F Temperature 96.9 F Temperature 98.0 F Temperature 98.4 F Temperature 98.4 F - Labs CBC & Chem 7: 04/25/18 06:38 04/25/18 06:38 Labs: Abnormal lab results 04/25/18 04/25/18 04/26/18 Range/Units 10:08 22:37 10:49 POC Glucose 69 L 233 H (70-105) C-Reactive Protein 25.70 H (0.00-1.30) mg/dL
[2018-04-26] MEDS: NACL 0.9% 1000 ML 1,000 ML IV SCH (11:48)
[2018-04-26] MEDS ORDERED: POTASSIUM CHLORIDE FEEDTUBE ONE ×2 (11:51→15:00)
--- NOTE | 2018-04-26 11:51 | Progress Note ---
Assessment and Plan Assessment and plan: --Right pneumothorax (25%) Family will hold off on chest tube for now and would like to discuss amongst themselves first. I explained the importance of chest tube and the procedure in detail. --Staph aureus bacteremia; 1:2 blood cultures,ID following Cefazolin per ID. Continue 2 g IV every 8 hours for total of 14 days until . --Stage IV decubitus ulcer; wound care,IV antibiotics Surgery following, possible surgical debridement if needed --Sepsis;due to UTI Continue Vanco and Zosyn, follow cultures --Lactic acidosis; secondary to sepsis Continue current management --Metabolic encephalopathy; probably due to sepsis Patient is noncommunicative --Acute on chronic systolic congestive heart failure; EF 10-15% Continue anti-failure medications, cardiology evaluation --History of coronary artery disease status post CABG; continue current cardiac medications, cardiology evaluation if needed --Severe malnutrition/hypoalbuminemia; nutrition supplement and supportive care, Nutrition consult poor oral intake, discussed with her daughter, agreed for Dobbhoff feeding Patient may need PEG placement at some point --Code status discussed with the daughter at the bedside, will check with the family and inform us --Full code at this point Patient is critically ill with poor prognosis Plan of care reviewed with the patient's daughter at the bedside and her nurse Disposition; follow consultations and recommendations Poor prognosis. I discuss possibility of hospice with the family. History Interval history: 72-year-old female patient with significant history of congestive heart failure and diabetes mellitus sacral decubitus ulcers was admitted through emergency room with altered level of consciousness and failure to thrive with poor oral intake. Patient is being symptomatically managed with empiric antibiotics, surgery evaluated the patient, possible surgical debridement if needed, blood cultures 1;2 positive for staph aureus Hospitalist Physical - Constitutional Vitals: Temp Pulse Resp BP Pulse Ox 97.8 F 93 H 18 138/69 100 04/26/18 07:30 04/26/18 10:53 04/26/18 07:30 04/26/18 10:53 04/26/18 07:30 General appearance: Present: mild distress, cachectic, disheveled, other ( chronically ill-looking) - EENT Eyes: Present: PERRL, EOM intact ENT: hearing intact, clear oral mucosa, dentition normal - Neck Neck: Present: supple, normal ROM - Respiratory Respiratory effort: normal Respiratory: bilateral: CTA - Cardiovascular Rhythm: regular Heart Sounds: Present: S1 & S2. Absent: gallop, rub - Extremities Extremities: no ischemia, No edema, Full ROM - Abdominal General gastrointestinal: soft, non-tender, non-distended, normal bowel sounds - Integumentary Integumentary: Present: clear, warm, dry - Neurologic Neurologic: CNII-XII intact, moves all extremities Results - Labs CBC & Chem 7: 04/25/18 06:38 04/25/18 06:38 Labs: Laboratory Last Values WBC 15.7 K/mm3 (4.5-11.0) H 04/25/18 06:38 RBC 3.76 M/mm3 (3.65-5.03) 04/25/18 06:38 Hgb 9.9 gm/dl (10.1-14.3) L 04/25/18 06:38 Hct 31.8 % (30.3-42.9) 04/25/18 06:38 MCV 85 fl (79-97) 04/25/18 06:38 MCH 26 pg (28-32) L 04/25/18 06:38 MCHC 31 % (30-34) 04/25/18 06:38 RDW 16.6 % (13.2-15.2) H 04/25/18 06:38 Plt Count 135 K/mm3 (140-440) L 04/25/18 06:38 Lymph % (Auto) 7.8 % (13.4-35.0) L 04/24/18 18:24 [place] % (Auto) 3.0 % (0.0-7.3) 04/24/18 18:24 Eos % (Auto) 0.1 % (0.0-4.3) 04/24/18 18:24 Baso % (Auto) 0.1 % (0.0-1.8) 04/24/18 18:24 Lymph # 1.4 K/mm3 (1.2-5.4) 04/24/18 18:24 [place] # 0.5 K/mm3 (0.0-0.8) 04/24/18 18:24 Eos # 0.0 K/mm3 (0.0-0.4) 04/24/18 18:24 Baso # 0.0 K/mm3 (0.0-0.1) 04/24/18 18:24 Add Manual Diff Complete 04/25/18 06:38 Total Counted 100 04/25/18 06:38 Seg Neutrophils % 89.0 % (40.0-70.0) H 04/24/18 18:24 Seg Neuts % (Manual) 95.0 % (40.0-70.0) H 04/25/18 06:38 Band Neutrophils % 2.0 % 04/25/18 06:38 Lymphocytes % (Manual) 1.0 % (13.4-35.0) L 04/25/18 06:38 Reactive Lymphs % (Man) 0 % 04/25/18 06:38 Monocytes % (Manual) 1.0 % (0.0-7.3) 04/25/18 06:38 Eosinophils % (Manual) 0 % (0.0-4.3) 04/25/18 06:38 Basophils % (Manual) 0 % (0.0-1.8) 04/25/18 06:38 Metamyelocytes % 1.0 % 04/25/18 06:38 Myelocytes % 0 % 04/25/18 06:38 Promyelocytes % 0 % 04/25/18 06:38 Blast Cells % 0 % 04/25/18 06:38 Nucleated RBC % Not Reportable 04/25/18 06:38 Seg Neutrophils # 15.5 K/mm3 (1.8-7.7) H 04/24/18 18:24 Seg Neutrophils # Man 14.9 K/mm3 (1.8-7.7) H 04/25/18 06:38 Band Neutrophils # 0.3 K/mm3 04/25/18 06:38 Lymphocytes # (Manual) 0.2 K/mm3 (1.2-5.4) L 04/25/18 06:38 Abs React Lymphs (Man) 0.0 K/mm3 04/25/18 06:38 Monocytes # (Manual) 0.2 K/mm3 (0.0-0.8) 04/25/18 06:38 Eosinophils # (Manual) 0.0 K/mm3 (0.0-0.4) 04/25/18 06:38 Basophils # (Manual) 0.0 K/mm3 (0.0-0.1) 04/25/18 06:38 Metamyelocytes # 0.2 K/mm3 04/25/18 06:38 Myelocytes # 0.0 K/mm3 04/25/18 06:38 Promyelocytes # 0.0 K/mm3 04/25/18 06:38 Blast Cells # 0.0 K/mm3 04/25/18 06:38 WBC Morphology Not Reportable 04/25/18 06:38 Hypersegmented Neuts Not Reportable 04/25/18 06:38 Hyposegmented Neuts Not Reportable 04/25/18 06:38 Hypogranular Neuts Not Reportable 04/25/18 06:38 Smudge Cells Not Reportable 04/25/18 06:38 Toxic Granulation Not Reportable 04/25/18 06:38 Toxic Vacuolation Not Reportable 04/25/18 06:38 Dohle Bodies Not Reportable 04/25/18 06:38 Pelger-Huet Anomaly Not Reportable 04/25/18 06:38 Rocío Rods Not Reportable 04/25/18 06:38 Platelet Estimate Cons 04/25/18 06:38 Clumped Platelets Not Reportable 04/25/18 06:38 Plt Clumps, EDTA Not Reportable 04/25/18 06:38 Large Platelets Not Reportable 04/25/18 06:38 Giant Platelets Not Reportable 04/25/18 06:38 Platelet Satelliting Not Reportable 04/25/18 06:38 Plt Morphology Comment Not Reportable 04/25/18 06:38 RBC Morphology Not Reportable 04/25/18 06:38 Dimorphic RBCs Not Reportable 04/25/18 06:38 Polychromasia Not Reportable 04/25/18 06:38 Hypochromasia Few 04/25/18 06:38 Poikilocytosis Not Reportable 04/25/18 06:38 Anisocytosis 1+ 04/25/18 06:38 Microcytosis Not Reportable 04/25/18 06:38 Macrocytosis Not Reportable 04/25/18 06:38 Spherocytes Not Reportable 04/25/18 06:38 Pappenheimer Bodies Not Reportable 04/25/18 06:38 Sickle Cells Not Reportable 04/25/18 06:38 Target Cells Not Reportable 04/25/18 06:38 Tear Drop Cells Not Reportable 04/25/18 06:38 Ovalocytes Not Reportable 04/25/18 06:38 Helmet Cells Not Reportable 04/25/18 06:38 [place] Bodies Not Reportable 04/25/18 06:38 [place] Rings Not Reportable 04/25/18 06:38 [place] Cells Not Reportable 04/25/18 06:38 Bite Cells Not Reportable 04/25/18 06:38 Crenated Cell Not Reportable 04/25/18 06:38 Elliptocytes Not Reportable 04/25/18 06:38 Acanthocytes (Spur) Not Reportable 04/25/18 06:38 Rouleaux Not Reportable 04/25/18 06:38 Hemoglobin C Crystals Not Reportable 04/25/18 06:38 Schistocytes Not Reportable 04/25/18 06:38 Malaria parasites Not Reportable 04/25/18 06:38 Trev Bodies Not Reportable 04/25/18 06:38 Hem Pathologist Commnt No 04/25/18 06:38 PT 18.8 Sec. (12.2-14.9) H 04/23/18 16:04 INR 1.48 (0.87-1.13) H 04/23/18 16:04 POC ABG pH 7.470 (7.35-7.45) H 04/23/18 16:44 POC ABG pCO2 42.7 (35-45) 04/23/18 16:44 POC ABG pO2 156 (80-105) H 04/23/18 16:44 POC ABG HCO3 31.1 04/23/18 16:44 POC ABG Total CO2 32 04/23/18 16:44 POC ABG O2 Sat 99 04/23/18 16:44 POC ABG Base Excess 7 04/23/18 16:44 VBG pH 7.308 (7.320-7.420) L 04/23/18 16:04 FiO2 36 % 04/23/18 16:44 Sodium 150 mmol/L (137-145) H 04/25/18 06:38 Potassium 3.0 mmol/L (3.6-5.0) L 04/25/18 06:38 Chloride 107.9 mmol/L (98-107) H 04/25/18 06:38 Carbon Dioxide 29 mmol/L (22-30) 04/25/18 06:38 Anion Gap 16 mmol/L 04/25/18 06:38 BUN 24 mg/dL (7-17) H 04/25/18 06:38 Creatinine 1.0 mg/dL (0.7-1.2) 04/25/18 06:38 Estimated GFR > 60 ml/min 04/25/18 06:38 BUN/Creatinine Ratio 24 % 04/25/18 06:38 Glucose 58 mg/dL (65-100) L 04/25/18 06:38 POC Glucose 233 (70-105) H 04/26/18 10:49 Hemoglobin A1c 5.4 % (4-6) 04/23/18 23:13 Lactic Acid 1.80 mmol/L (0.7-2.0) 04/24/18 18:24 Calcium 7.7 mg/dL (8.4-10.2) L 04/25/18 06:38 Phosphorus 2.60 mg/dL (2.5-4.5) 04/25/18 06:38 Magnesium 1.60 mg/dL (1.7-2.3) L 04/25/18 06:38 Total Bilirubin 1.30 mg/dL (0.1-1.2) H 04/25/18 06:38 AST 23 units/L (5-40) 04/25/18 06:38 ALT 12 units/L (7-56) 04/25/18 06:38 Alkaline Phosphatase 166 units/L (35-129) H 04/25/18 06:38 C-Reactive Protein 25.70 mg/dL (0.00-1.30) H 04/25/18 22:37 NT-Pro-B Natriuret Pep 05098 pg/mL (0-900) H 04/23/18 16:04 Total Protein 4.8 g/dL (6.3-8.2) L 04/25/18 06:38 Albumin 1.5 g/dL (3.9-5) L 04/25/18 06:38 Albumin/Globulin Ratio 0.5 % 04/25/18 06:38 TSH 1.830 mlU/mL (0.270-4.200) 04/23/18 14:25 Urine Color [place] (Yellow) 04/23/18 15:40 Urine Turbidity Clear (Clear) 04/23/18 15:40 Urine pH 5.0 (5.0-7.0) 04/23/18 15:40 Ur Specific [place] 1.017 (1.003-1.030) 04/23/18 15:40 Urine Protein 100 mg/dl mg/dL (Negative) 04/23/18 15:40 Urine Glucose (UA) Neg mg/dL (Negative) 04/23/18 15:40 Urine Ketones Neg mg/dL (Negative) 04/23/18 15:40 Urine Blood Sm (Negative) 04/23/18 15:40 Urine Nitrite Neg (Negative) 04/23/18 15:40 Urine Bilirubin Neg (Negative) 04/23/18 15:40 Urine Urobilinogen 2.0 mg/dL (<2.0) 04/23/18 15:40 Ur Leukocyte Esterase Mod (Negative) 04/23/18 15:40 Urine WBC (Auto) > 182.0 /HPF (0.0-6.0) H 04/23/18 15:40 Urine RBC (Auto) 17.0 /HPF (0.0-6.0) 04/23/18 15:40 U Epithel Cells (Auto) 8.0 /HPF (0-13.0) 04/23/18 15:40 Urine Bacteria (Auto) 4+ /HPF (Negative) 04/23/18 15:40 Urine WBC Clumps 3+ /HPF 04/23/18 15:40 Urine Mucus Few /HPF 04/23/18 15:40 Urine Opiates Screen Presumptive negative 04/23/18 15:40 Urine Methadone Screen Presumptive positive 04/23/18 15:40 Ur Barbiturates Screen Presumptive negative 04/23/18 15:40 Ur Phencyclidine Scrn Presumptive negative 04/23/18 15:40 Ur Amphetamines Screen Presumptive negative 04/23/18 15:40 U Benzodiazepines Scrn Presumptive negative 04/23/18 15:40 Urine Cocaine Screen Presumptive negative 04/23/18 15:40 U Marijuana (THC) Screen Presumptive negative 04/23/18 15:40 Drugs of Abuse Note Disclamer 04/23/18 15:40 Plasma/Serum Alcohol < 0.01 % (0-0.07) 04/23/18 17:09
[2018-04-26] MEDS: ceFAZolin 2 GM in NACL 0.9% 100 ML IV SCH ×2 (13:55→23:14)
--- NOTE | 2018-04-26 15:27 | Event Note ---
Date: 04/26/18 Late note: Notified around 930am by Dr. Coronado of finding of Left sided pneumothorax on CT A/P which was ordered by ID. ?etiology. I recommended IR consult for placement of pigtail catheter. Per hospitalist note, patient's family is choosing to have a discussion prior to placement of chest tube. Continue supplemental O2, repeat CXR in am.
[2018-04-26] MEDS: HumuLIN R SUB-Q SCH ×2 (21:33→22:47)
[2018-04-26] MEDS: LOVENOX SUB-Q SCH (22:46)
[2018-04-27] MEDS: SODIUM CHLORIDE FLUSH SYRINGE 10 ML IV SCH ×4 (01:08→22:40)
[2018-04-27] MEDS: NEURONTIN PO SCH ×3 (01:09→22:32)
[2018-04-27] MEDS: NACL 0.9% 1000 ML 1,000 ML IV SCH (04:35)
[2018-04-27] MEDS: ceFAZolin 2 GM in NACL 0.9% 100 ML IV SCH ×3 (05:56→22:31)
[2018-04-27] MEDS: HumuLIN R SUB-Q SCH ×3 (06:30→18:56)
--- NOTE | 2018-04-27 09:21 | XRay Report ---
AP CHEST: HISTORY: Followup pneumothorax A small to medium right pneumothorax is identified measuring up to 1.5 cm at the lateral right lung base. The pneumothorax is estimated at 20%. Small pleural effusions and bibasilar atelectasis are unchanged. Heart size remains within normal limits. The feeding tube terminates in the mid stomach. IMPRESSION: No overwhelming change in the right pneumothorax since yesterday's CT. Small pleural effusions and bibasilar atelectasis.
--- NOTE | 2018-04-27 10:13 | Progress Note ---
Assessment and Plan Assessment: 1) Sepsis: better; etiology - Staph bacteremia 2) MSSA bacteremia: source likely sacral decubitus vs. pneumonia -Blood cx 04/23 MSSA 1 of 4 bottles -Blood cx 04/25 no growth so far -TTE EF 15-20%, severe MR/TR, no vegetations 3) Non stageable sacral ulcer 4x7.5x0.1cm and Non stageable right buttocks ucler 4x3x0.1: ? infected -CT pelvis NO osteo NO abscess 4) Bilateral pneumonia pneumonia 5) Diabetes 6) Acute encephalopathy 7) Congestive heart failure 8) Right sided pneumothorax 25% Plan: -stop contact - still on contact -continue cefazolin -f/u repeat blood cx -upon discharge will do cefazolin 2 g IV q8h total 14 days until 05/08/18 -place PICC upon discharge -Consider hospice, poor prognosis with Staph septicemia, sacral dec and severe cardiomyopathy I am signing off Thank you for your consultation, will follow up with you. Cami Allen MD Infectious Diseases Specialist [facility] ([facility]) M [phone] O [phone] Subjective Date of service: 04/27/18 Principal diagnosis: Staph bacteremia Interval history: Remains non verbal in NAD no fever Microbiology: Blood cultures: 04/23 MSSA 1 of 4 04/25 ngtd Urine cultures: Respiratory cultures: Current Antimicrobials: cefazolin 04/26 Previous Antimicrobials: Vancomycin Cefepime Objective - Exam Narrative Exam: General appearance: Alert in NAD,non conversant Eyes: anicteric sclerae, moist conjunctivae; no lid-lag; PERRLA HENT: Atraumatic; oropharynx limited edentulous Neck: Trachea midline; supple, no thyromegaly or lymphadenopathy Lungs: distant BS felicia CV: irreg Abdomen: Soft, non-tender Extremities: No peripheral edema or extremity lymphadenopathy Skin: NON-STAGEABLE PRESSURE INJURY TO SACRAL AREA-ULCER MEASURES 4X7.5X0.1-NO DRAINAGE PRESENT-NECROTIC TISSUE PRESENT TO MAJORITY OF ULCER-HYDROCOLLOID APPLIED TO ULCER TO PROMOTE AUTOLYTIC DEBRIDEMENT NON-STAGEABLE PRESSURE INJURY TO RIGHT BUTTOCKS-ULCER MEASURES 4X3X0.1-NO DRAINAGE PRESENT-NECROTIC TISSUE TO MAJORITY OF ULCER-HYDROCOLLOID APPLIED TO PROMOTE AUTOLYTIC DEBRIDEMENT Psych: Appropriate affect, alert and oriented to person, place and time. Neuro: alert and oriented x 3. Moving all extermities Lines: No CVL / PICC - Constitutional Vitals: Vital Signs Temp Pulse Resp BP Pulse Ox 98.8 F 102 H 20 141/70 100 04/27/18 07:40 04/27/18 07:40 04/27/18 07:40 04/27/18 07:40 04/27/18 07:40 Temperature -Last 24 Hours Temperature 98.8 F Temperature 98.9 F Temperature 98.9 F Temperature 98.7 F - Labs CBC & Chem 7: 04/25/18 06:38 04/25/18 06:38 Labs: Abnormal lab results 04/26/18 04/26/18 04/27/18 Range/Units 10:49 21:06 01:39 POC Glucose 233 H 301 H 262 H (70-105) 04/27/18 Range/Units 06:42 POC Glucose 226 H (70-105)
--- NOTE | 2018-04-27 11:21 | Progress Note ---
Assessment and Plan Assessment and plan: --Right pneumothorax (25%) Family agreeable to chest tube. IR consulted. Pulmonary also consulted. --Staph aureus bacteremia; 1:2 blood cultures,ID following Cefazolin per ID. Continue 2 g IV every 8 hours for total of 14 days until . --Stage IV decubitus ulcer; wound care,IV antibiotics Surgery following, possible surgical debridement if needed --Sepsis;due to UTI Continue Vanco and Zosyn, follow cultures --Lactic acidosis; secondary to sepsis Continue current management --Metabolic encephalopathy; probably due to sepsis Patient is noncommunicative --Acute on chronic systolic congestive heart failure; EF 10-15% Continue anti-failure medications, cardiology consultation pending --Cardiomyopathy. --Severe MR/TR --History of coronary artery disease status post CABG; continue current cardiac medications, cardiology consultation pending --Severe malnutrition/hypoalbuminemia; nutrition supplement and supportive care, Nutrition consult poor oral intake, discussed with her daughter, agreed for Dobbhoff feeding Patient may need PEG placement at some point --Code status discussed with the daughter at the bedside, will check with the family and inform us --Full code at this point Patient is critically ill with poor prognosis Plan of care reviewed with the patient's daughter at the bedside and her nurse Disposition; follow consultations and recommendations Poor prognosis. I discuss possibility of hospice with the family. History Interval history: 72-year-old female patient with significant history of congestive heart failure and diabetes mellitus sacral decubitus ulcers was admitted through emergency room with altered level of consciousness and failure to thrive with poor oral intake. Patient is being symptomatically managed with empiric antibiotics, surgery evaluated the patient, possible surgical debridement if needed, blood cultures 1;2 positive for staph aureus Patient also noted incidental finding on CT scan of 25% right pneumothorax. Hospitalist Physical - Constitutional Vitals: Temp Pulse Resp BP Pulse Ox 98.8 F 102 H 20 141/70 100 04/27/18 07:40 04/27/18 07:40 04/27/18 07:40 04/27/18 07:40 04/27/18 07:40 General appearance: Present: mild distress, cachectic, disheveled, other ( chronically ill-looking) - EENT Eyes: Present: PERRL, EOM intact ENT: hearing intact, clear oral mucosa, dentition normal - Neck Neck: Present: supple, normal ROM - Respiratory Respiratory effort: normal Respiratory: bilateral: CTA - Cardiovascular Rhythm: regular Heart Sounds: Present: S1 & S2. Absent: gallop, rub - Extremities Extremities: no ischemia, No edema, Full ROM - Abdominal General gastrointestinal: soft, non-tender, non-distended, normal bowel sounds - Integumentary Integumentary: Present: clear, warm, dry - Neurologic Neurologic: CNII-XII intact, moves all extremities Results - Labs CBC & Chem 7: 04/25/18 06:38 04/25/18 06:38 Labs: Laboratory Last Values WBC 15.7 K/mm3 (4.5-11.0) H 04/25/18 06:38 RBC 3.76 M/mm3 (3.65-5.03) 04/25/18 06:38 Hgb 9.9 gm/dl (10.1-14.3) L 04/25/18 06:38 Hct 31.8 % (30.3-42.9) 04/25/18 06:38 MCV 85 fl (79-97) 04/25/18 06:38 MCH 26 pg (28-32) L 04/25/18 06:38 MCHC 31 % (30-34) 04/25/18 06:38 RDW 16.6 % (13.2-15.2) H 04/25/18 06:38 Plt Count 135 K/mm3 (140-440) L 04/25/18 06:38 Lymph % (Auto) 7.8 % (13.4-35.0) L 04/24/18 18:24 [place] % (Auto) 3.0 % (0.0-7.3) 04/24/18 18:24 Eos % (Auto) 0.1 % (0.0-4.3) 04/24/18 18:24 Baso % (Auto) 0.1 % (0.0-1.8) 04/24/18 18:24 Lymph # 1.4 K/mm3 (1.2-5.4) 04/24/18 18:24 [place] # 0.5 K/mm3 (0.0-0.8) 04/24/18 18:24 Eos # 0.0 K/mm3 (0.0-0.4) 04/24/18 18:24 Baso # 0.0 K/mm3 (0.0-0.1) 04/24/18 18:24 Add Manual Diff Complete 04/25/18 06:38 Total Counted 100 04/25/18 06:38 Seg Neutrophils % 89.0 % (40.0-70.0) H 04/24/18 18:24 Seg Neuts % (Manual) 95.0 % (40.0-70.0) H 04/25/18 06:38 Band Neutrophils % 2.0 % 04/25/18 06:38 Lymphocytes % (Manual) 1.0 % (13.4-35.0) L 04/25/18 06:38 Reactive Lymphs % (Man) 0 % 04/25/18 06:38 Monocytes % (Manual) 1.0 % (0.0-7.3) 04/25/18 06:38 Eosinophils % (Manual) 0 % (0.0-4.3) 04/25/18 06:38 Basophils % (Manual) 0 % (0.0-1.8) 04/25/18 06:38 Metamyelocytes % 1.0 % 04/25/18 06:38 Myelocytes % 0 % 04/25/18 06:38 Promyelocytes % 0 % 04/25/18 06:38 Blast Cells % 0 % 04/25/18 06:38 Nucleated RBC % Not Reportable 04/25/18 06:38 Seg Neutrophils # 15.5 K/mm3 (1.8-7.7) H 04/24/18 18:24 Seg Neutrophils # Man 14.9 K/mm3 (1.8-7.7) H 04/25/18 06:38 Band Neutrophils # 0.3 K/mm3 04/25/18 06:38 Lymphocytes # (Manual) 0.2 K/mm3 (1.2-5.4) L 04/25/18 06:38 Abs React Lymphs (Man) 0.0 K/mm3 04/25/18 06:38 Monocytes # (Manual) 0.2 K/mm3 (0.0-0.8) 04/25/18 06:38 Eosinophils # (Manual) 0.0 K/mm3 (0.0-0.4) 04/25/18 06:38 Basophils # (Manual) 0.0 K/mm3 (0.0-0.1) 04/25/18 06:38 Metamyelocytes # 0.2 K/mm3 04/25/18 06:38 Myelocytes # 0.0 K/mm3 04/25/18 06:38 Promyelocytes # 0.0 K/mm3 04/25/18 06:38 Blast Cells # 0.0 K/mm3 04/25/18 06:38 WBC Morphology Not Reportable 04/25/18 06:38 Hypersegmented Neuts Not Reportable 04/25/18 06:38 Hyposegmented Neuts Not Reportable 04/25/18 06:38 Hypogranular Neuts Not Reportable 04/25/18 06:38 Smudge Cells Not Reportable 04/25/18 06:38 Toxic Granulation Not Reportable 04/25/18 06:38 Toxic Vacuolation Not Reportable 04/25/18 06:38 Dohle Bodies Not Reportable 04/25/18 06:38 Pelger-Huet Anomaly Not Reportable 04/25/18 06:38 Rocío Rods Not Reportable 04/25/18 06:38 Platelet Estimate Cons 04/25/18 06:38 Clumped Platelets Not Reportable 04/25/18 06:38 Plt Clumps, EDTA Not Reportable 04/25/18 06:38 Large Platelets Not Reportable 04/25/18 06:38 Giant Platelets Not Reportable 04/25/18 06:38 Platelet Satelliting Not Reportable 04/25/18 06:38 Plt Morphology Comment Not Reportable 04/25/18 06:38 RBC Morphology Not Reportable 04/25/18 06:38 Dimorphic RBCs Not Reportable 04/25/18 06:38 Polychromasia Not Reportable 04/25/18 06:38 Hypochromasia Few 04/25/18 06:38 Poikilocytosis Not Reportable 04/25/18 06:38 Anisocytosis 1+ 04/25/18 06:38 Microcytosis Not Reportable 04/25/18 06:38 Macrocytosis Not Reportable 04/25/18 06:38 Spherocytes Not Reportable 04/25/18 06:38 Pappenheimer Bodies Not Reportable 04/25/18 06:38 Sickle Cells Not Reportable 04/25/18 06:38 Target Cells Not Reportable 04/25/18 06:38 Tear Drop Cells Not Reportable 04/25/18 06:38 Ovalocytes Not Reportable 04/25/18 06:38 Helmet Cells Not Reportable 04/25/18 06:38 [place] Bodies Not Reportable 04/25/18 06:38 [place] Rings Not Reportable 04/25/18 06:38 [place] Cells Not Reportable 04/25/18 06:38 Bite Cells Not Reportable 04/25/18 06:38 Crenated Cell Not Reportable 04/25/18 06:38 Elliptocytes Not Reportable 04/25/18 06:38 Acanthocytes (Spur) Not Reportable 04/25/18 06:38 Rouleaux Not Reportable 04/25/18 06:38 Hemoglobin C Crystals Not Reportable 04/25/18 06:38 Schistocytes Not Reportable 04/25/18 06:38 Malaria parasites Not Reportable 04/25/18 06:38 Trev Bodies Not Reportable 04/25/18 06:38 Hem Pathologist Commnt No 04/25/18 06:38 PT 18.8 Sec. (12.2-14.9) H 04/23/18 16:04 INR 1.48 (0.87-1.13) H 04/23/18 16:04 POC ABG pH 7.470 (7.35-7.45) H 04/23/18 16:44 POC ABG pCO2 42.7 (35-45) 04/23/18 16:44 POC ABG pO2 156 (80-105) H 04/23/18 16:44 POC ABG HCO3 31.1 04/23/18 16:44 POC ABG Total CO2 32 04/23/18 16:44 POC ABG O2 Sat 99 04/23/18 16:44 POC ABG Base Excess 7 04/23/18 16:44 VBG pH 7.308 (7.320-7.420) L 04/23/18 16:04 FiO2 36 % 04/23/18 16:44 Sodium 150 mmol/L (137-145) H 04/25/18 06:38 Potassium 3.0 mmol/L (3.6-5.0) L 04/25/18 06:38 Chloride 107.9 mmol/L (98-107) H 04/25/18 06:38 Carbon Dioxide 29 mmol/L (22-30) 04/25/18 06:38 Anion Gap 16 mmol/L 04/25/18 06:38 BUN 24 mg/dL (7-17) H 04/25/18 06:38 Creatinine 1.0 mg/dL (0.7-1.2) 04/25/18 06:38 Estimated GFR > 60 ml/min 04/25/18 06:38 BUN/Creatinine Ratio 24 % 04/25/18 06:38 Glucose 58 mg/dL (65-100) L 04/25/18 06:38 POC Glucose 226 (70-105) H 04/27/18 06:42 Hemoglobin A1c 5.4 % (4-6) 04/23/18 23:13 Lactic Acid 1.80 mmol/L (0.7-2.0) 04/24/18 18:24 Calcium 7.7 mg/dL (8.4-10.2) L 04/25/18 06:38 Phosphorus 2.60 mg/dL (2.5-4.5) 04/25/18 06:38 Magnesium 1.60 mg/dL (1.7-2.3) L 04/25/18 06:38 Total Bilirubin 1.30 mg/dL (0.1-1.2) H 04/25/18 06:38 AST 23 units/L (5-40) 04/25/18 06:38 ALT 12 units/L (7-56) 04/25/18 06:38 Alkaline Phosphatase 166 units/L (35-129) H 04/25/18 06:38 C-Reactive Protein 25.70 mg/dL (0.00-1.30) H 04/25/18 22:37 NT-Pro-B Natriuret Pep 44286 pg/mL (0-900) H 04/23/18 16:04 Total Protein 4.8 g/dL (6.3-8.2) L 04/25/18 06:38 Albumin 1.5 g/dL (3.9-5) L 04/25/18 06:38 Albumin/Globulin Ratio 0.5 % 04/25/18 06:38 TSH 1.830 mlU/mL (0.270-4.200) 04/23/18 14:25 Urine Color [facility] (Yellow) 04/23/18 15:40 Urine Turbidity Clear (Clear) 04/23/18 15:40 Urine pH 5.0 (5.0-7.0) 04/23/18 15:40 Ur Specific [place] 1.017 (1.003-1.030) 04/23/18 15:40 Urine Protein 100 mg/dl mg/dL (Negative) 04/23/18 15:40 Urine Glucose (UA) Neg mg/dL (Negative) 04/23/18 15:40 Urine Ketones Neg mg/dL (Negative) 04/23/18 15:40 Urine Blood Sm (Negative) 04/23/18 15:40 Urine Nitrite Neg (Negative) 04/23/18 15:40 Urine Bilirubin Neg (Negative) 04/23/18 15:40 Urine Urobilinogen 2.0 mg/dL (<2.0) 04/23/18 15:40 Ur Leukocyte Esterase Mod (Negative) 04/23/18 15:40 Urine WBC (Auto) > 182.0 /HPF (0.0-6.0) H 04/23/18 15:40 Urine RBC (Auto) 17.0 /HPF (0.0-6.0) 04/23/18 15:40 U Epithel Cells (Auto) 8.0 /HPF (0-13.0) 04/23/18 15:40 Urine Bacteria (Auto) 4+ /HPF (Negative) 04/23/18 15:40 Urine WBC Clumps 3+ /HPF 04/23/18 15:40 Urine Mucus Few /HPF 04/23/18 15:40 Urine Opiates Screen Presumptive negative 04/23/18 15:40 Urine Methadone Screen Presumptive positive 04/23/18 15:40 Ur Barbiturates Screen Presumptive negative 04/23/18 15:40 Ur Phencyclidine Scrn Presumptive negative 04/23/18 15:40 Ur Amphetamines Screen Presumptive negative 04/23/18 15:40 U Benzodiazepines Scrn Presumptive negative 04/23/18 15:40 Urine Cocaine Screen Presumptive negative 04/23/18 15:40 U Marijuana (THC) Screen Presumptive negative 04/23/18 15:40 Drugs of Abuse Note Disclamer 04/23/18 15:40 Plasma/Serum Alcohol < 0.01 % (0-0.07) 04/23/18 17:09
[2018-04-27] MEDS: PEPCID IV SCH (11:25)
[2018-04-27] MEDS: LOPRESSOR PO SCH ×2 (11:26→22:32)
[2018-04-27] MEDS: K-DUR PO SCH (11:26)
[2018-04-27] MEDS: BABY ASPIRIN PO SCH (12:53)
--- NOTE | 2018-04-27 13:37 | Consultation ---
History of Present Illness Consult date: 04/27/18 Reason for consult: abnormal CXR/CT, other (pneumothorax,sarcoid) Past History Past Medical History: acute [place], CAD, COPD, diabetes, GERD, heart failure, hypertension, stroke, other Past Surgical History: CABG Social history: no significant social history Family history: no significant family history Medications and Allergies Allergies Allergy/AdvReac Type Severity Reaction Status Date / Time atorvastatin calcium Allergy Unknown Verified 04/26/18 21:55 [From Lipitor] Iodinated Contrast- Oral and Allergy Unknown Verified 04/26/18 21:55 IV Dye [Iodinated Contrast Media - IV Dye] tomato Allergy Unknown Verified 04/26/18 21:55 Home Medications Medication Instructions Recorded Confirmed Last Taken Type Gabapentin 300 mg PO BID 09/11/14 04/23/18 02/19/16 History Aspirin [Aspirin BABY CHEW TAB] 81 mg PO QDAY #30 tab.chew 11/25/17 04/23/18 Unknown Rx Furosemide [Lasix TAB] 20 mg PO QDAY #30 tablet 11/25/17 04/23/18 Unknown Rx Metoprolol [Lopressor TAB] 12.5 mg PO BID #30 tablet 11/25/17 04/23/18 Unknown Rx traMADol [Ultram 50 MG tab] 50 mg PO BID #60 tablet 11/25/17 04/23/18 Unknown Rx Potassium Chloride 2 tab PO DAILY 14 Days #28 01/28/18 04/23/18 Unknown Rx tablet.er traMADol [Ultram 50 MG tab] 50 mg PO Q6HR PRN #20 tablet 01/28/18 04/23/18 Unknown Rx Active Meds: Active Medications Acetaminophen (Tylenol) 650 mg PO Q4H PRN PRN Reason: Pain MILD(1-3)/Fever >100.5/VARELA Lipase/Protease/Amylase (Pancreaze Dr 10,500 Unit) 1 each FEEDTUBE PRN PRN PRN Reason: For Clogged Feeding Tube Aspirin (Baby Aspirin) 81 mg PO QDAY [facility] Last Admin: 04/27/18 12:53 Dose: Not Given Enoxaparin Sodium (Lovenox) 30 mg SUB-Q QDAY@2200 [facility] Last Admin: 04/26/18 22:46 Dose: 30 mg Famotidine (Pepcid) 20 mg PO DAILY [facility] Furosemide (Lasix) 40 mg IV QDAY [facility] Gabapentin (Neurontin) 300 mg PO BID [facility] Last Admin: 04/27/18 11:26 Dose: 300 mg Sodium Chloride (Nacl 0.9% 1000 Ml) 1,000 mls @ 75 mls/hr IV DIRECT [facility] Last Admin: 04/27/18 04:35 Dose: 75 mls/hr Cefazolin Sodium 2 gm/ Sodium (Chloride) 100 mls @ 200 mls/hr IV Q8HR [facility] Stop: 05/08/18 23:59 Last Admin: 04/27/18 05:56 Dose: 200 mls/hr Insulin Human Regular (Humulin R) 0 units SUB-Q Q6HR [facility]; Protocol Last Admin: 04/27/18 12:54 Dose: Not Given Metoprolol Tartrate (Lopressor) 12.5 mg PO BID [facility] Last Admin: 04/27/18 11:26 Dose: 12.5 mg Morphine Sulfate (Morphine) 2 mg IV Q4H PRN PRN Reason: Pain, Moderate (4-6) Last Admin: 04/26/18 07:58 Dose: 2 mg Ondansetron HCl (Zofran) 4 mg IV Q8H PRN PRN Reason: Nausea And Vomiting Potassium Chloride (K-Dur) 20 meq PO QDAY [facility] Last Admin: 04/27/18 11:26 Dose: 20 meq Simple Syrup (Simple Syrup) 15 ml FEEDTUBE PRN PRN PRN Reason: Hypoglycemia Simple Syrup (Simple Syrup) 30 ml FEEDTUBE PRN PRN PRN Reason: Hypoglycemia Sodium Bicarbonate (Sodium Bicarbonate) 325 mg FEEDTUBE PRN PRN PRN Reason: For Clogged Feeding Tube Sodium Chloride (Sodium Chloride Flush Syringe 10 Ml) 10 ml IV BID [facility] Last Admin: 04/27/18 04:36 Dose: 10 ml Sodium Chloride (Sodium Chloride Flush Syringe 10 Ml) 10 ml IV PRN PRN PRN Reason: LINE FLUSH Physical Examination Vital signs: Vital Signs Pulse Resp 115 H 19 04/23/18 13:59 04/23/18 13:59 Results - Laboratory Findings CBC and BMP: 04/25/18 06:38 04/25/18 06:38 ABG POC ABG pH 7.470 (7.35-7.45) H 04/23/18 16:44 POC ABG pCO2 42.7 (35-45) 04/23/18 16:44 POC ABG pO2 156 (80-105) H 04/23/18 16:44 POC ABG HCO3 31.1 04/23/18 16:44 POC ABG Total CO2 32 04/23/18 16:44 POC ABG O2 Sat 99 04/23/18 16:44 PT/INR, D-dimer PT 18.8 Sec. (12.2-14.9) H 04/23/18 16:04 INR 1.48 (0.87-1.13) H 04/23/18 16:04 Abnormal lab findings: Abnormal Labs 04/23/18 04/23/18 04/23/18 15:40 16:04 16:04 WBC 24.9 H Hgb MCH 26 L RDW 16.6 H Plt Count Lymph % (Auto) Seg Neutrophils % Seg Neuts % (Manual) 97.0 H Lymphocytes % (Manual) 1.5 L Seg Neutrophils # Seg Neutrophils # Man 24.2 H Lymphocytes # (Manual) 0.4 L PT 18.8 H INR 1.48 H POC ABG pH POC ABG pO2 VBG pH Sodium Potassium Chloride BUN Creatinine Glucose POC Glucose Lactic Acid Calcium Magnesium Total Bilirubin AST Alkaline Phosphatase C-Reactive Protein NT-Pro-B Natriuret Pep Total Protein Albumin Urine WBC (Auto) > 182.0 H 04/23/18 04/23/18 04/23/18 16:04 16:04 16:04 WBC Hgb MCH RDW Plt Count Lymph % (Auto) Seg Neutrophils % Seg Neuts % (Manual) Lymphocytes % (Manual) Seg Neutrophils # Seg Neutrophils # Man Lymphocytes # (Manual) PT INR POC ABG pH POC ABG pO2 VBG pH 7.308 L Sodium Potassium Chloride 95.6 L BUN 24 H Creatinine 1.6 H Glucose 162 H POC Glucose Lactic Acid 8.80 H* Calcium Magnesium Total Bilirubin 1.90 H AST 68 H Alkaline Phosphatase 253 H C-Reactive Protein NT-Pro-B Natriuret Pep Total Protein 5.8 L Albumin 1.9 L Urine WBC (Auto) 04/23/18 04/23/18 04/23/18 16:04 16:44 23:03 WBC Hgb MCH RDW Plt Count Lymph % (Auto) Seg Neutrophils % Seg Neuts % (Manual) Lymphocytes % (Manual) Seg Neutrophils # Seg Neutrophils # Man Lymphocytes # (Manual) PT INR POC ABG pH 7.470 H POC ABG pO2 156 H VBG pH Sodium Potassium Chloride BUN Creatinine Glucose POC Glucose 158 H Lactic Acid Calcium Magnesium Total Bilirubin AST Alkaline Phosphatase C-Reactive Protein NT-Pro-B Natriuret Pep 99956 H Total Protein Albumin Urine WBC (Auto) 04/23/18 04/24/18 04/24/18 23:08 12:36 15:38 WBC Hgb MCH RDW Plt Count Lymph % (Auto) Seg Neutrophils % Seg Neuts % (Manual) Lymphocytes % (Manual) Seg Neutrophils # Seg Neutrophils # Man Lymphocytes # (Manual) PT INR POC ABG pH POC ABG pO2 VBG pH Sodium Potassium Chloride BUN Creatinine Glucose POC Glucose 109 H 110 H Lactic Acid 3.00 H* Calcium Magnesium Total Bilirubin AST Alkaline Phosphatase C-Reactive Protein NT-Pro-B Natriuret Pep Total Protein Albumin Urine WBC (Auto) 04/24/18 04/24/18 04/25/18 18:24 18:24 06:38 WBC 17.4 H 15.7 H Hgb 9.9 L MCH 26 L 26 L RDW 16.5 H 16.6 H Plt Count 135 L Lymph % (Auto) 7.8 L Seg Neutrophils % 89.0 H Seg Neuts % (Manual) 95.0 H Lymphocytes % (Manual) 1.0 L Seg Neutrophils # 15.5 H Seg Neutrophils # Man 14.9 H Lymphocytes # (Manual) 0.2 L PT INR POC ABG pH POC ABG pO2 VBG pH Sodium Potassium 3.5 L Chloride BUN 26 H Creatinine Glucose POC Glucose Lactic Acid Calcium 8.1 L Magnesium Total Bilirubin 1.40 H AST Alkaline Phosphatase 203 H C-Reactive Protein NT-Pro-B Natriuret Pep Total Protein 5.4 L Albumin 1.6 L Urine WBC (Auto) 04/25/18 04/25/18 04/25/18 06:38 10:08 22:37 WBC Hgb MCH RDW Plt Count Lymph % (Auto) Seg Neutrophils % Seg Neuts % (Manual) Lymphocytes % (Manual) Seg Neutrophils # Seg Neutrophils # Man Lymphocytes # (Manual) PT INR POC ABG pH POC ABG pO2 VBG pH Sodium 150 H Potassium 3.0 L Chloride 107.9 H BUN 24 H Creatinine Glucose 58 L POC Glucose 69 L Lactic Acid Calcium 7.7 L Magnesium 1.60 L Total Bilirubin 1.30 H AST Alkaline Phosphatase 166 H C-Reactive Protein 25.70 H NT-Pro-B Natriuret Pep Total Protein 4.8 L Albumin 1.5 L Urine WBC (Auto) 04/26/18 04/26/18 04/27/18 10:49 21:06 01:39 WBC Hgb MCH RDW Plt Count Lymph % (Auto) Seg Neutrophils % Seg Neuts % (Manual) Lymphocytes % (Manual) Seg Neutrophils # Seg Neutrophils # Man Lymphocytes # (Manual) PT INR POC ABG pH POC ABG pO2 VBG pH Sodium Potassium Chloride BUN Creatinine Glucose POC Glucose 233 H 301 H 262 H Lactic Acid Calcium Magnesium Total Bilirubin AST Alkaline Phosphatase C-Reactive Protein NT-Pro-B Natriuret Pep Total Protein Albumin Urine WBC (Auto) 04/27/18 04/27/18 06:42 11:40 WBC Hgb MCH RDW Plt Count Lymph % (Auto) Seg Neutrophils % Seg Neuts % (Manual) Lymphocytes % (Manual) Seg Neutrophils # Seg Neutrophils # Man Lymphocytes # (Manual) PT INR POC ABG pH POC ABG pO2 VBG pH Sodium Potassium Chloride BUN Creatinine Glucose POC Glucose 226 H 190 H Lactic Acid Calcium Magnesium Total Bilirubin AST Alkaline Phosphatase C-Reactive Protein NT-Pro-B Natriuret Pep Total Protein Albumin Urine WBC (Auto)
--- NOTE | 2018-04-27 13:45 | Consultation ---
History of Present Illness Consult date: 04/27/18 Requesting physician: UMBERTO POE Consult reason: congestive heart failure History of present illness: The pt is a 72 YO female with a past medical history significant for CAD s/p CABG and PCI, recent STEMI on 10/06/2017 - [facility] showed triple vessel CAD and severe lv systolic dysfunction with EF 25%, pt declined re-do CABG at [facility], chronic combined systolic and diastolic HF, ICMP, sarcoidosis, rheumatoid arthritis, decubitus sacral ulcer. She is followed in our office by Dr. Mccullough. She presented on 04/23 with complaints of decreased oral intake and AMS noted by her daughter. Since admission, she has been diagnosed with staph aureus bacteremia, sepsis, UTI, lactic acidosis, encephalopathy, malnutrition. She was incidentally found to have right pneumothorax (20%) and is pending possible chest tube placement. Cardiology has been consulted for heart failure. Echo done 04/24/2018 showed EF 15-20%, LV severely dilated, mild to mod LVH, LA mildly dilated, mod to severe MR, mild AR, mild to mod TR. Past History Past Medical History: acute [place], CAD, COPD, diabetes, GERD, heart failure, hypertension, stroke, other Past Surgical History: CABG Social history: no significant social history Family history: no significant family history Medications and Allergies Allergies Allergy/AdvReac Type Severity Reaction Status Date / Time atorvastatin calcium Allergy Unknown Verified 04/26/18 21:55 [From Lipitor] Iodinated Contrast- Oral and Allergy Unknown Verified 04/26/18 21:55 IV Dye [Iodinated Contrast Media - IV Dye] tomato Allergy Unknown Verified 04/26/18 21:55 Home Medications Medication Instructions Recorded Confirmed Last Taken Type Gabapentin 300 mg PO BID 09/11/14 04/23/18 02/19/16 History Aspirin [Aspirin BABY CHEW TAB] 81 mg PO QDAY #30 tab.chew 11/25/17 04/23/18 Unknown Rx Furosemide [Lasix TAB] 20 mg PO QDAY #30 tablet 11/25/17 04/23/18 Unknown Rx Metoprolol [Lopressor TAB] 12.5 mg PO BID #30 tablet 11/25/17 04/23/18 Unknown Rx traMADol [Ultram 50 MG tab] 50 mg PO BID #60 tablet 11/25/17 04/23/18 Unknown Rx Potassium Chloride 2 tab PO DAILY 14 Days #28 01/28/18 04/23/18 Unknown Rx tablet.er traMADol [Ultram 50 MG tab] 50 mg PO Q6HR PRN #20 tablet 01/28/18 04/23/18 Unknown Rx Active Meds: Active Medications Acetaminophen (Tylenol) 650 mg PO Q4H PRN PRN Reason: Pain MILD(1-3)/Fever >100.5/VARELA Lipase/Protease/Amylase (Pancreaze Dr 10,500 Unit) 1 each FEEDTUBE PRN PRN PRN Reason: For Clogged Feeding Tube Aspirin (Baby Aspirin) 81 mg PO QDAY [facility] Last Admin: 04/27/18 12:53 Dose: Not Given Enoxaparin Sodium (Lovenox) 30 mg SUB-Q QDAY@2200 [facility] Last Admin: 04/26/18 22:46 Dose: 30 mg Famotidine (Pepcid) 20 mg PO DAILY [facility] Furosemide (Lasix) 40 mg IV QDAY [facility] Gabapentin (Neurontin) 300 mg PO BID [facility] Last Admin: 04/27/18 11:26 Dose: 300 mg Sodium Chloride (Nacl 0.9% 1000 Ml) 1,000 mls @ 75 mls/hr IV DIRECT [facility] Last Admin: 04/27/18 04:35 Dose: 75 mls/hr Cefazolin Sodium 2 gm/ Sodium (Chloride) 100 mls @ 200 mls/hr IV Q8HR [facility] Stop: 05/08/18 23:59 Last Admin: 04/27/18 05:56 Dose: 200 mls/hr Insulin Human Regular (Humulin R) 0 units SUB-Q Q6HR [facility]; Protocol Last Admin: 04/27/18 12:54 Dose: Not Given Metoprolol Tartrate (Lopressor) 12.5 mg PO BID [facility] Last Admin: 04/27/18 11:26 Dose: 12.5 mg Morphine Sulfate (Morphine) 2 mg IV Q4H PRN PRN Reason: Pain, Moderate (4-6) Last Admin: 04/26/18 07:58 Dose: 2 mg Ondansetron HCl (Zofran) 4 mg IV Q8H PRN PRN Reason: Nausea And Vomiting Potassium Chloride (K-Dur) 20 meq PO QDAY [facility] Last Admin: 04/27/18 11:26 Dose: 20 meq Simple Syrup (Simple Syrup) 15 ml FEEDTUBE PRN PRN PRN Reason: Hypoglycemia Simple Syrup (Simple Syrup) 30 ml FEEDTUBE PRN PRN PRN Reason: Hypoglycemia Sodium Bicarbonate (Sodium Bicarbonate) 325 mg FEEDTUBE PRN PRN PRN Reason: For Clogged Feeding Tube Sodium Chloride (Sodium Chloride Flush Syringe 10 Ml) 10 ml IV BID [facility] Last Admin: 04/27/18 04:36 Dose: 10 ml Sodium Chloride (Sodium Chloride Flush Syringe 10 Ml) 10 ml IV PRN PRN PRN Reason: LINE FLUSH Physical Examination Vital Signs Pulse Resp 115 H 19 04/23/18 13:59 04/23/18 13:59 Results 04/25/18 06:38 04/27/18 12:04 Assessment and Plan Assessment: Sepsis / staph aureus bacteremia UTI Lactic acidosis Encephalopathy Pneumothorax Stage IV decubitus ulcer CAD s/p CABG and PCI H/o recent STEMI on 10/06/2017 - [facility] showed triple vessel CAD and severe lv systolic dysfunction with EF 25%, pt declined re-do CABG at [facility] Chronic combined systolic and diastolic heart failure ICMP - EF 40-45% per echo 10/08/2017 and 15-20% per echo 04/24/2018 H/o sarcoidosis H/o rheumatoid arthritis Hypernatremia Hypokalemia / hypomag Plan: Resume home losartan, pravastatin, plavix. Cont all other present cardiac management. Replete K+ and Mg and repeat BMP and Mg in AM. The patient has been seen in conjunction with Dr. Bradley who agrees with the assessment and plan of care.
[2018-04-27 13:54] LABS: BUN/Creatinine Ratio 28; Blood Urea Nitrogen 22 mg/dL (7-17); Calcium 7.6 mg/dL (8.4-10.2); Hemolysis Index 4
--- NOTE | 2018-04-27 14:06 | Consultation ---
History of Present Illness - Reason for Consult Consult date: 04/27/18 right pneumothorax - History of Present Illness Patient with a history of multiple medical comorbidities including sacral decubitus, sepsis CHF an encephalopathy who presents with an incidentally discovered pneumothorax first noticed on CT of the abdomen and pelvis with a follow-up chest x-ray demonstrating approximately 15% pneumothorax on the right side. Patient is breathing comfortably on 3 L of oxygen by nasal cannula. Past History Past Medical History: acute [place], CAD, COPD, diabetes, GERD, heart failure, hypertension, stroke, other Past Surgical History: CABG Social history: no significant social history Family history: no significant family history Medications and Allergies Allergies Allergy/AdvReac Type Severity Reaction Status Date / Time atorvastatin calcium Allergy Unknown Verified 04/26/18 21:55 [From Lipitor] Iodinated Contrast- Oral and Allergy Unknown Verified 04/26/18 21:55 IV Dye [Iodinated Contrast Media - IV Dye] tomato Allergy Unknown Verified 04/26/18 21:55 Home Medications Medication Instructions Recorded Confirmed Last Taken Type Gabapentin 300 mg PO BID 09/11/14 04/23/18 02/19/16 History Aspirin [Aspirin BABY CHEW TAB] 81 mg PO QDAY #30 tab.chew 11/25/17 04/23/18 Unknown Rx Furosemide [Lasix TAB] 20 mg PO QDAY #30 tablet 11/25/17 04/23/18 Unknown Rx Metoprolol [Lopressor TAB] 12.5 mg PO BID #30 tablet 11/25/17 04/23/18 Unknown Rx traMADol [Ultram 50 MG tab] 50 mg PO BID #60 tablet 11/25/17 04/23/18 Unknown Rx Potassium Chloride 2 tab PO DAILY 14 Days #28 01/28/18 04/23/18 Unknown Rx tablet.er traMADol [Ultram 50 MG tab] 50 mg PO Q6HR PRN #20 tablet 01/28/18 04/23/18 Unknown Rx Active Meds: Active Medications Acetaminophen (Tylenol) 650 mg PO Q4H PRN PRN Reason: Pain MILD(1-3)/Fever >100.5/VARELA Lipase/Protease/Amylase (Sana Jeff 10,500 Unit) 1 each FEEDTUBE PRN PRN PRN Reason: For Clogged Feeding Tube Aspirin (Baby Aspirin) 81 mg PO QDAY [facility] Last Admin: 04/27/18 12:53 Dose: Not Given Enoxaparin Sodium (Lovenox) 30 mg SUB-Q QDAY@2200 [facility] Last Admin: 04/26/18 22:46 Dose: 30 mg Famotidine (Pepcid) 20 mg PO DAILY [facility] Furosemide (Lasix) 40 mg IV QDAY [facility] Gabapentin (Neurontin) 300 mg PO BID [facility] Last Admin: 04/27/18 11:26 Dose: 300 mg Sodium Chloride (Nacl 0.9% 1000 Ml) 1,000 mls @ 75 mls/hr IV DIRECT [facility] Last Admin: 04/27/18 04:35 Dose: 75 mls/hr Cefazolin Sodium 2 gm/ Sodium (Chloride) 100 mls @ 200 mls/hr IV Q8HR [facility] Stop: 05/08/18 23:59 Last Admin: 04/27/18 05:56 Dose: 200 mls/hr Insulin Human Regular (Humulin R) 0 units SUB-Q Q6HR [facility]; Protocol Last Admin: 04/27/18 12:54 Dose: Not Given Losartan Potassium (Cozaar) 25 mg PO QDAY [facility] Metoprolol Tartrate (Lopressor) 12.5 mg PO BID [facility] Last Admin: 04/27/18 11:26 Dose: 12.5 mg Morphine Sulfate (Morphine) 2 mg IV Q4H PRN PRN Reason: Pain, Moderate (4-6) Last Admin: 04/26/18 07:58 Dose: 2 mg Ondansetron HCl (Zofran) 4 mg IV Q8H PRN PRN Reason: Nausea And Vomiting Potassium Chloride (K-Dur) 20 meq PO QDAY [facility] Last Admin: 04/27/18 11:26 Dose: 20 meq Simple Syrup (Simple Syrup) 15 ml FEEDTUBE PRN PRN PRN Reason: Hypoglycemia Simple Syrup (Simple Syrup) 30 ml FEEDTUBE PRN PRN PRN Reason: Hypoglycemia Sodium Bicarbonate (Sodium Bicarbonate) 325 mg FEEDTUBE PRN PRN PRN Reason: For Clogged Feeding Tube Sodium Chloride (Sodium Chloride Flush Syringe 10 Ml) 10 ml IV BID [facility] Last Admin: 04/27/18 04:36 Dose: 10 ml Sodium Chloride (Sodium Chloride Flush Syringe 10 Ml) 10 ml IV PRN PRN PRN Reason: LINE FLUSH Review of Systems ROS unobtainable: due to mental status Exam - Constitutional Vitals: Temp Pulse Resp BP Pulse Ox 98.8 F 98 H 16 121/60 100 04/27/18 07:40 04/27/18 11:26 04/27/18 10:00 04/27/18 11:26 04/27/18 07:40 General appearance: Present: no acute distress, cachectic - Neck Neck: Present: supple, normal ROM - Respiratory Respiratory effort: normal - Abdominal General gastrointestinal: Present: deferred Female genitourinary: Present: deferred - Rectal Rectal Exam: deferred Results - Labs CBC & Chem 7: 04/25/18 06:38 04/27/18 12:04 Labs: Abnormal lab results 04/26/18 04/27/18 04/27/18 Range/Units 21:06 01:39 06:42 Sodium (137-145) mmol/L Potassium (3.6-5.0) mmol/L Chloride (98-107) mmol/L BUN (7-17) mg/dL Glucose (65-100) mg/dL POC Glucose 301 H 262 H 226 H (70-105) Calcium (8.4-10.2) mg/dL 04/27/18 04/27/18 Range/Units 11:40 12:04 Sodium 157 H (137-145) mmol/L Potassium 2.4 L* (3.6-5.0) mmol/L Chloride 116.4 H (98-107) mmol/L BUN 22 H (7-17) mg/dL Glucose 227 H (65-100) mg/dL POC Glucose 190 H (70-105) Calcium 7.6 L (8.4-10.2) mg/dL - Imaging and Cardiology Chest x-ray: image reviewed CT scan - abdomen: image reviewed Assessment and Plan Patient with a small right pneumothorax. This does not appear to be clinically symptomatic at this time. We'll follow this up with chest x-rays, if the patient's clinical condition changes or the size increases would consider placing a pigtail catheter in her right pleural space.
[2018-04-27] MEDS ORDERED: MAGNESIUM SULFATE 1 GM in NACL 0.9% 50 ML IV ONE (14:09)
[2018-04-27] MEDS: POTASSIUM CHLORIDE FEEDTUBE SCH ×2 (14:34→21:01)
[2018-04-27] MEDS ORDERED: PRAVACHOL PO SCH (22:00)
[2018-04-27] MEDS: LOVENOX SUB-Q SCH (22:32)
[2018-04-28] MEDS: HumuLIN R SUB-Q SCH ×4 (00:05→17:58)
[2018-04-28] MEDS ORDERED: PROVENTIL IH ONE (02:51)
[2018-04-28] MEDS: LASIX IV SCH (03:46)
[2018-04-28] MEDS: ceFAZolin 2 GM in NACL 0.9% 100 ML IV SCH ×2 (05:58→16:07)
[2018-04-28 07:50] LABS: Basophils % (Auto) 0.1 % (0.0-1.8); Eosinophils % (Auto) 0.2 % (0.0-4.3); Hematocrit 28.8 % (30.3-42.9); Lymphocytes # (Auto) 0.7 K/mm3 (1.2-5.4); Lymphocytes % (Auto) 7.6 % (13.4-35.0); Mean Corpuscular HGB Conc 31 % (30-34); Mean Corpuscular Hemoglobin 27 pg (28-32); Mean Corpuscular Volume 84 fl (79-97); Monocytes # (Auto) 0.2 K/mm3 (0.0-0.8); Monocytes % (Auto) 2.1 % (0.0-7.3); Red Blood Count 3.41 M/mm3 (3.65-5.03); Red Cell Distribution Width 16.6 % (13.2-15.2)
[2018-04-28 07:52] LABS: Platelet Count 67 K/mm3 (140-440)
[2018-04-28 08:12] LABS: BUN/Creatinine Ratio 25; Blood Urea Nitrogen 25 mg/dL (7-17); Calcium 7.4 mg/dL (8.4-10.2); Hemolysis Index 10
--- NOTE | 2018-04-28 08:43 | XRay Report ---
AP CHEST: HISTORY: Follow up right pneumothorax Since yesterday's exam, the right pneumothorax has decreased by approximately 50%. The pneumothorax measures 1 cm at the right apex. Mild congestive changes and small pleural effusions are unchanged. Mild bibasilar atelectasis. Heart size is stable and within normal limits. IMPRESSION: 50% improvement in the right pneumothorax which is estimated at 10-15%.
--- NOTE | 2018-04-28 09:42 | Event Note ---
Date: 04/28/18 Reviewed CXR. Improvement in right pneumothorax. Given patient's comorbidites and lack of symptoms, following with serial CXR with supplementary oxygen is reasonable. Ordered CXR for tomorrow.
--- NOTE | 2018-04-28 09:47 | Progress Note ---
Assessment and Plan Assessment and plan: --Acute hypoxemia respiratory failure. Etiology is multifactorial secondary to pneumothorax, systolic CHF, sarcoidosis and pneumonia. Patient appears to be compensated with O2 via NC. [facility] consultation pending. --Bilateral pneumonia. Continue antibiotics per ID. --Right pneumothorax (25%) IR plans to have follow-up with serial chest x-ray and continue conservative treatment. If the patient's clinical condition changes or the size increases, would consider placing a pigtail catheter in her right pleural space. Pulmonary consultation pending --Staph aureus bacteremia; 1:2 blood cultures,ID following Cefazolin per ID. Continue 2 g IV every 8 hours for total of 14 days until . --Stage IV decubitus ulcer; wound care,IV antibiotics Surgery following, possible surgical debridement if needed --Sepsis;due to UTI Continue Vanco and Zosyn, follow cultures --Lactic acidosis; secondary to sepsis Continue current management --Metabolic encephalopathy; probably due to sepsis Patient is noncommunicative --Acute on chronic systolic congestive heart failure; EF 15-20% (04/24/18) Continue anti-failure medications, cardiology consultation pending --Ischemic Cardiomyopathy. H/o recent STEMI on 10/06/2017 - [facility] showed triple vessel CAD and severe lv systolic dysfunction with EF 25%, pt declined re-do CABG at [place] --Severe MR/TR --Hypokalemia Replete potassium as needed --Sarcoidosis Resume home prednisone 5 mg daily. --Rheumatoid arthritis --History of coronary artery disease status post CABG; continue current cardiac medications, cardiology consultation pending --Severe malnutrition/hypoalbuminemia; nutrition supplement and supportive care, Nutrition consult poor oral intake, discussed with her daughter, agreed for Dobb[place] feeding Patient may need PEG placement at some point --Code status discussed with the daughter at the bedside, will check with the family and inform us --Full code at this point Patient is critically ill with poor prognosis Plan of care reviewed with the patient's daughter at the bedside and her nurse Disposition; follow consultations and recommendations Poor prognosis. I discuss possibility of hospice with the family. History Interval history: 72-year-old female patient with significant history of congestive heart failure and diabetes mellitus sacral decubitus ulcers was admitted through emergency room with altered level of consciousness and failure to thrive with poor oral intake. Patient is being symptomatically managed with empiric antibiotics, surgery evaluated the patient, possible surgical debridement if needed, blood cultures 1;2 positive for staph aureus Patient also noted incidental finding on CT scan of 25% right pneumothorax. Hospitalist Physical - Constitutional Vitals: Temp Pulse Resp BP Pulse Ox 101 F H 95 H 18 102/45 91 04/28/18 08:00 04/28/18 07:42 04/28/18 07:41 04/28/18 08:00 04/28/18 07:42 General appearance: Present: mild distress, cachectic - EENT Eyes: Present: PERRL, EOM intact ENT: hearing intact, clear oral mucosa, dentition normal - Neck Neck: Present: supple, normal ROM - Respiratory Respiratory effort: normal Respiratory: bilateral: CTA - Cardiovascular Rhythm: regular Heart Sounds: Present: S1 & S2. Absent: gallop, rub - Extremities Extremities: no ischemia, No edema, Full ROM - Abdominal General gastrointestinal: soft, non-tender, non-distended, normal bowel sounds - Integumentary Integumentary: Present: clear, warm, dry - Neurologic Neurologic: CNII-XII intact, moves all extremities Results - Labs CBC & Chem 7: 04/28/18 Unknown 04/28/18 Unknown Labs: Laboratory Last Values WBC 9.7 K/mm3 (4.5-11.0) 04/28/18 Unknown RBC 3.41 M/mm3 (3.65-5.03) L 04/28/18 Unknown Hgb 9.0 gm/dl (10.1-14.3) L 04/28/18 Unknown Hct 28.8 % (30.3-42.9) L 04/28/18 Unknown MCV 84 fl (79-97) 04/28/18 Unknown MCH 27 pg (28-32) L 04/28/18 Unknown MCHC 31 % (30-34) 04/28/18 Unknown RDW 16.6 % (13.2-15.2) H 04/28/18 Unknown Plt Count 67 K/mm3 (140-440) L 04/28/18 Unknown Lymph % (Auto) 7.6 % (13.4-35.0) L 04/28/[address] [place] % (Auto) 2.1 % (0.0-7.3) 04/28/18 Unknown Eos % (Auto) 0.2 % (0.0-4.3) 04/28/18 Unknown Baso % (Auto) 0.1 % (0.0-1.8) 04/28/18 Unknown Lymph # 0.7 K/mm3 (1.2-5.4) L 04/28/[address] [place] # 0.2 K/mm3 (0.0-0.8) 04/28/18 Unknown Eos # 0.0 K/mm3 (0.0-0.4) 04/28/18 Unknown Baso # 0.0 K/mm3 (0.0-0.1) 04/28/18 Unknown Add Manual Diff Complete 04/25/18 06:38 Total Counted 100 04/25/18 06:38 Seg Neutrophils % 90.0 % (40.0-70.0) H 04/28/18 Unknown Seg Neuts % (Manual) 95.0 % (40.0-70.0) H 04/25/18 06:38 Band Neutrophils % 2.0 % 04/25/18 06:38 Lymphocytes % (Manual) 1.0 % (13.4-35.0) L 04/25/18 06:38 Reactive Lymphs % (Man) 0 % 04/25/18 06:38 Monocytes % (Manual) 1.0 % (0.0-7.3) 04/25/18 06:38 Eosinophils % (Manual) 0 % (0.0-4.3) 04/25/18 06:38 Basophils % (Manual) 0 % (0.0-1.8) 04/25/18 06:38 Metamyelocytes % 1.0 % 04/25/18 06:38 Myelocytes % 0 % 04/25/18 06:38 Promyelocytes % 0 % 04/25/18 06:38 Blast Cells % 0 % 04/25/18 06:38 Nucleated RBC % Not Reportable 04/25/18 06:38 Seg Neutrophils # 8.8 K/mm3 (1.8-7.7) H 04/28/18 Unknown Seg Neutrophils # Man 14.9 K/mm3 (1.8-7.7) H 04/25/18 06:38 Band Neutrophils # 0.3 K/mm3 04/25/18 06:38 Lymphocytes # (Manual) 0.2 K/mm3 (1.2-5.4) L 04/25/18 06:38 Abs React Lymphs (Man) 0.0 K/mm3 04/25/18 06:38 Monocytes # (Manual) 0.2 K/mm3 (0.0-0.8) 04/25/18 06:38 Eosinophils # (Manual) 0.0 K/mm3 (0.0-0.4) 04/25/18 06:38 Basophils # (Manual) 0.0 K/mm3 (0.0-0.1) 04/25/18 06:38 Metamyelocytes # 0.2 K/mm3 04/25/18 06:38 Myelocytes # 0.0 K/mm3 04/25/18 06:38 Promyelocytes # 0.0 K/mm3 04/25/18 06:38 Blast Cells # 0.0 K/mm3 04/25/18 06:38 WBC Morphology Not Reportable 04/25/18 06:38 Hypersegmented Neuts Not Reportable 04/25/18 06:38 Hyposegmented Neuts Not Reportable 04/25/18 06:38 Hypogranular Neuts Not Reportable 04/25/18 06:38 Smudge Cells Not Reportable 04/25/18 06:38 Toxic Granulation Not Reportable 04/25/18 06:38 Toxic Vacuolation Not Reportable 04/25/18 06:38 Dohle Bodies Not Reportable 04/25/18 06:38 Pelger-Huet Anomaly Not Reportable 04/25/18 06:38 Rocío Rods Not Reportable 04/25/18 06:38 Platelet Estimate Cons 04/25/18 06:38 Clumped Platelets Not Reportable 04/25/18 06:38 Plt Clumps, EDTA Not Reportable 04/25/18 06:38 Large Platelets Not Reportable 04/25/18 06:38 Giant Platelets Not Reportable 04/25/18 06:38 Platelet Satelliting Not Reportable 04/25/18 06:38 Plt Morphology Comment Not Reportable 04/25/18 06:38 RBC Morphology Not Reportable 04/25/18 06:38 Dimorphic RBCs Not Reportable 04/25/18 06:38 Polychromasia Not Reportable 04/25/18 06:38 Hypochromasia Few 04/25/18 06:38 Poikilocytosis Not Reportable 04/25/18 06:38 Anisocytosis 1+ 04/25/18 06:38 Microcytosis Not Reportable 04/25/18 06:38 Macrocytosis Not Reportable 04/25/18 06:38 Spherocytes Not Reportable 04/25/18 06:38 Pappenheimer Bodies Not Reportable 04/25/18 06:38 Sickle Cells Not Reportable 04/25/18 06:38 Target Cells Not Reportable 04/25/18 06:38 Tear Drop Cells Not Reportable 04/25/18 06:38 Ovalocytes Not Reportable 04/25/18 06:38 Helmet Cells Not Reportable 04/25/18 06:38 [place] Bodies Not Reportable 04/25/18 06:38 [place] Rings Not Reportable 04/25/18 06:38 [place] Cells Not Reportable 04/25/18 06:38 Bite Cells Not Reportable 04/25/18 06:38 Crenated Cell Not Reportable 04/25/18 06:38 Elliptocytes Not Reportable 04/25/18 06:38 Acanthocytes (Spur) Not Reportable 04/25/18 06:38 Rouleaux Not Reportable 04/25/18 06:38 Hemoglobin C Crystals Not Reportable 04/25/18 06:38 Schistocytes Not Reportable 04/25/18 06:38 Malaria parasites Not Reportable 04/25/18 06:38 Trev Bodies Not Reportable 04/25/18 06:38 Hem Pathologist Commnt No 04/25/18 06:38 PT 18.8 Sec. (12.2-14.9) H 04/23/18 16:04 INR 1.48 (0.87-1.13) H 04/23/18 16:04 POC ABG pH 7.470 (7.35-7.45) H 04/23/18 16:44 POC ABG pCO2 42.7 (35-45) 04/23/18 16:44 POC ABG pO2 156 (80-105) H 04/23/18 16:44 POC ABG HCO3 31.1 04/23/18 16:44 POC ABG Total CO2 32 04/23/18 16:44 POC ABG O2 Sat 99 04/23/18 16:44 POC ABG Base Excess 7 04/23/18 16:44 VBG pH 7.308 (7.320-7.420) L 04/23/18 16:04 FiO2 36 % 04/23/18 16:44 Sodium 157 mmol/L (137-145) H 04/28/18 Unknown Potassium 3.5 mmol/L (3.6-5.0) L 04/28/18 Unknown Chloride 120.1 mmol/L (98-107) H 04/28/18 Unknown Carbon Dioxide 25 mmol/L (22-30) 04/28/18 Unknown Anion Gap 15 mmol/L 04/28/18 Unknown BUN 25 mg/dL (7-17) H 04/28/18 Unknown Creatinine 1.0 mg/dL (0.7-1.2) 04/28/18 Unknown Estimated GFR > 60 ml/min 04/28/18 Unknown BUN/Creatinine Ratio 25 % 04/28/18 Unknown Glucose 268 mg/dL (65-100) H 04/28/18 Unknown POC Glucose 280 (70-105) H 04/28/18 06:36 Hemoglobin A1c 5.4 % (4-6) 04/23/18 23:13 Lactic Acid 1.80 mmol/L (0.7-2.0) 04/24/18 18:24 Calcium 7.4 mg/dL (8.4-10.2) L 04/28/18 Unknown Phosphorus 2.60 mg/dL (2.5-4.5) 04/25/18 06:38 Magnesium 2.10 mg/dL (1.7-2.3) 04/28/18 Unknown Total Bilirubin 1.30 mg/dL (0.1-1.2) H 04/25/18 06:38 AST 23 units/L (5-40) 04/25/18 06:38 ALT 12 units/L (7-56) 04/25/18 06:38 Alkaline Phosphatase 166 units/L (35-129) H 04/25/18 06:38 C-Reactive Protein 25.70 mg/dL (0.00-1.30) H 04/25/18 22:37 NT-Pro-B Natriuret Pep 12894 pg/mL (0-900) H 04/23/18 16:04 Total Protein 4.8 g/dL (6.3-8.2) L 04/25/18 06:38 Albumin 1.5 g/dL (3.9-5) L 04/25/18 06:38 Albumin/Globulin Ratio 0.5 % 04/25/18 06:38 TSH 1.830 mlU/mL (0.270-4.200) 04/23/18 14:25 Urine Color [place] (Yellow) 04/23/18 15:40 Urine Turbidity Clear (Clear) 04/23/18 15:40 Urine pH 5.0 (5.0-7.0) 04/23/18 15:40 Ur Specific [place] 1.017 (1.003-1.030) 04/23/18 15:40 Urine Protein 100 mg/dl mg/dL (Negative) 04/23/18 15:40 Urine Glucose (UA) Neg mg/dL (Negative) 04/23/18 15:40 Urine Ketones Neg mg/dL (Negative) 04/23/18 15:40 Urine Blood Sm (Negative) 04/23/18 15:40 Urine Nitrite Neg (Negative) 04/23/18 15:40 Urine Bilirubin Neg (Negative) 04/23/18 15:40 Urine Urobilinogen 2.0 mg/dL (<2.0) 04/23/18 15:40 Ur Leukocyte Esterase Mod (Negative) 04/23/18 15:40 Urine WBC (Auto) > 182.0 /HPF (0.0-6.0) H 04/23/18 15:40 Urine RBC (Auto) 17.0 /HPF (0.0-6.0) 04/23/18 15:40 U Epithel Cells (Auto) 8.0 /HPF (0-13.0) 04/23/18 15:40 Urine Bacteria (Auto) 4+ /HPF (Negative) 04/23/18 15:40 Urine WBC Clumps 3+ /HPF 04/23/18 15:40 Urine Mucus Few /HPF 04/23/18 15:40 Urine Opiates Screen Presumptive negative 04/23/18 15:40 Urine Methadone Screen Presumptive positive 04/23/18 15:40 Ur Barbiturates Screen Presumptive negative 04/23/18 15:40 Ur Phencyclidine Scrn Presumptive negative 04/23/18 15:40 Ur Amphetamines Screen Presumptive negative 04/23/18 15:40 U Benzodiazepines Scrn Presumptive negative 04/23/18 15:40 Urine Cocaine Screen Presumptive negative 07/21/18 15:40 U Marijuana (THC) Screen Presumptive negative 04/23/18 15:40 Drugs of Abuse Note Disclamer 04/23/18 15:40 Plasma/Serum Alcohol < 0.01 % (0-0.07) 04/23/18 17:09
[2018-04-28] MEDS ORDERED: COZAAR PO SCH (10:00)
[2018-04-28] MEDS: PROVENTIL IH SCH ×2 (11:53→15:30)
--- NOTE | 2018-04-28 11:58 | XRay Report ---
AP CHEST: HISTORY: Left arm PICC placement A left arm PICC has been inserted which terminates near the cavoatrial junction. The remainder of the examination appears unchanged since earlier today at 0752 hours. IMPRESSION: The left arm PICC terminates at the cavoatrial junction.
[2018-04-28] MEDS ORDERED: SODIUM BICARBONATE FEEDTUBE PRN (12:07)
[2018-04-28] MEDS ORDERED: SIMPLE SYRUP FEEDTUBE PRN ×2 (12:07)
[2018-04-28] MEDS ORDERED: PANCREAZE DR 10,500 UNIT FEEDTUBE PRN (12:07)
--- NOTE | 2018-04-28 12:18 | Consultation ---
History of Present Illness - Reason for Consult Consult date: 04/28/18 hypernatremia - History of Present Illness patient is a 72 year old with multiple comorbidities was admitted for worsening mental status and failure to thrive. she was started on tube feeding and planning on possible PEG. discussed with nurse, she was not getting any free water flushes with TF. renal consult was requested for worsening hyponatremia Past History Past Medical History: acute NC, CAD, COPD, diabetes, GERD, heart failure, hypertension, stroke, other Past Surgical History: CABG Social history: no significant social history Family history: no significant family history Medications and Allergies Allergies Allergy/AdvReac Type Severity Reaction Status Date / Time atorvastatin calcium Allergy Unknown Verified 04/26/18 21:55 [From Lipitor] Iodinated Contrast- Oral and Allergy Unknown Verified 04/26/18 21:55 IV Dye [Iodinated Contrast Media - IV Dye] tomato Allergy Unknown Verified 04/26/18 21:55 lisinopril AdvReac Swelling Verified 04/28/18 08:02 Home Medications Medication Instructions Recorded Confirmed Last Taken Type Gabapentin 300 mg PO BID 09/11/14 04/23/18 02/19/16 History Aspirin [Aspirin BABY CHEW TAB] 81 mg PO QDAY #30 tab.chew 11/25/17 04/23/18 Unknown Rx Furosemide [Lasix TAB] 20 mg PO QDAY #30 tablet 11/25/17 04/23/18 Unknown Rx Metoprolol [Lopressor TAB] 12.5 mg PO BID #30 tablet 11/25/17 04/23/18 Unknown Rx traMADol [Ultram 50 MG tab] 50 mg PO BID #60 tablet 11/25/17 04/23/18 Unknown Rx Potassium Chloride 2 tab PO DAILY 14 Days #28 01/28/18 04/23/18 Unknown Rx tablet.er traMADol [Ultram 50 MG tab] 50 mg PO Q6HR PRN #20 tablet 01/28/18 04/23/18 Unknown Rx Active Meds: Active Medications Acetaminophen (Tylenol) 650 mg PO Q4H PRN PRN Reason: Pain MILD(1-3)/Fever >100.5/VARELA Albuterol (Proventil) 2.5 mg IH QIDRT DEREJE Lipase/Protease/Amylase (Pancreaze Dr 10,500 Unit) 1 each FEEDTUBE PRN PRN PRN Reason: For Clogged Feeding Tube Lipase/Protease/Amylase (Sana Jeff 10,500 Unit) 1 each FEEDTUBE PRN PRN PRN Reason: For Clogged Feeding Tube Aspirin (Baby Aspirin) 81 mg PO QDAY [facility] Last Admin: 04/27/18 12:53 Dose: Not Given Clopidogrel Bisulfate (Plavix) 75 mg PO QDAY [facility] Enoxaparin Sodium (Lovenox) 30 mg SUB-Q QDAY@2200 [facility] Last Admin: 04/27/18 22:32 Dose: 30 mg Famotidine (Pepcid) 20 mg PO DAILY [facility] Furosemide (Lasix) 40 mg IV QDAY [facility] Last Admin: 04/28/18 03:46 Dose: 40 mg Gabapentin (Neurontin) 300 mg PO BID [facility] Last Admin: 04/27/18 22:32 Dose: 300 mg Cefazolin Sodium 2 gm/ Sodium (Chloride) 100 mls @ 200 mls/hr IV Q8HR [facility] Stop: 05/08/18 23:59 Last Admin: 04/28/18 05:58 Dose: 200 mls/hr Insulin Human Regular (Humulin R) 0 units SUB-Q Q6HR [facility]; Protocol Last Admin: 04/28/18 07:28 Dose: 3 units Losartan Potassium (Cozaar) 12.5 mg PO QDAY [facility] Metoprolol Tartrate (Lopressor) 12.5 mg PO BID [facility] Last Admin: 04/27/18 22:32 Dose: Not Given Morphine Sulfate (Morphine) 2 mg IV Q4H PRN PRN Reason: Pain, Moderate (4-6) Last Admin: 04/26/18 07:58 Dose: 2 mg Ondansetron HCl (Zofran) 4 mg IV Q8H PRN PRN Reason: Nausea And Vomiting Potassium Chloride (K-Dur) 20 meq PO QDAY [facility] Last Admin: 04/27/18 11:26 Dose: 20 meq Potassium Chloride (Potassium Chloride) 20 meq FEEDTUBE BID [facility] Pravastatin Sodium (Pravachol) 80 mg PO QHS [facility] Last Admin: 04/27/18 22:32 Dose: 80 mg Prednisone (Prednisone) 5 mg FEEDTUBE QDAY [facility] Simple Syrup (Simple Syrup) 15 ml FEEDTUBE PRN PRN PRN Reason: Hypoglycemia Simple Syrup (Simple Syrup) 30 ml FEEDTUBE PRN PRN PRN Reason: Hypoglycemia Simple Syrup (Simple Syrup) 15 ml FEEDTUBE PRN PRN PRN Reason: Hypoglycemia Simple Syrup (Simple Syrup) 30 ml FEEDTUBE PRN PRN PRN Reason: Hypoglycemia Sodium Bicarbonate (Sodium Bicarbonate) 325 mg FEEDTUBE PRN PRN PRN Reason: For Clogged Feeding Tube Sodium Bicarbonate (Sodium Bicarbonate) 325 mg FEEDTUBE PRN PRN PRN Reason: For Clogged Feeding Tube Sodium Chloride (Sodium Chloride Flush Syringe 10 Ml) 10 ml IV BID DEREJE Last Admin: 04/27/18 22:40 Dose: 10 ml Sodium Chloride (Sodium Chloride Flush Syringe 10 Ml) 10 ml IV PRN PRN PRN Reason: LINE FLUSH Review of Systems ROS unobtainable: due to mental status Exam - Vital Signs Vital signs: Vital Signs Pulse Resp 115 H 19 04/23/18 13:59 04/23/18 13:59 - General Appearance General appearance: appears stated age, cachectic EENT: ATNC, mucous membranes dry Neck: Present: neck supple Respiratory: Decreased Breath Sounds Heart: regular, S1S2 Gastrointestinal: Present: normoactive bowel sounds Integumentary: no rash, warm and dry Neurologic: other (does not follow commands) Musculoskeletal: Present: other (trace pitting edema in BLE) Psychiatric: other (does not answer questions) Results - Lab Results 04/28/18 Unknown 04/28/18 Unknown Most recent lab results Calcium 7.4 mg/dL (8.4-10.2) L 04/28/18 Unknown Phosphorus 2.60 mg/dL (2.5-4.5) 04/25/18 06:38 Magnesium 2.10 mg/dL (1.7-2.3) 04/28/18 Unknown Assessment and Plan Hypernatremia - secondary to poor water intake - discussed with RN, will start free water flushes 250 cc Q4H - Na checks Q6H - will urine osm and Na - strict I&O - if no improvement will start D5W drip Hypokalemia - will start Kcl 20 meq BID via NGT MSSA bacteremia UTI - on cefazolin Acute hypoxemia respiratory failure Acute on chronic systolic congestive heart failure; EF 15-20% Bilateral pneumonia. - pulm consult is pending - IR following for pneumothorax, no chest tube for now, improving - followed by cardiology, on lasix 40 mg IV Qday Stage IV decubitus ulcer Surgery following, possible surgical debridement if needed Metabolic encephalopathy - possibly secondary to sepsis Severe malnutrition/hypoalbuminemia; - TF via NGT -Patient may need PEG placement at some point thank you for allowing to participate in Ms Mccray's care. please call me if you have any question, cell phone [phone]
[2018-04-28] MEDS: COZAAR PO SCH (12:39)
--- NOTE | 2018-04-28 12:39 | Progress Note ---
Assessment and Plan Assessment: Sepsis / staph aureus bacteremia PNA UTI Lactic acidosis Encephalopathy Pneumothorax Stage IV decubitus ulcer CAD s/p CABG and PCI H/o recent STEMI on 10/06/2017 - [facility] showed triple vessel CAD and severe lv systolic dysfunction with EF 25%, pt declined re-do CABG at [place] Chronic combined systolic and diastolic heart failure ICMP - EF 40-45% per echo 10/08/2017 and 15-20% per echo 04/24/2018 H/o sarcoidosis H/o rheumatoid arthritis Hypernatremia Hypokalemia / hypomag Anemia Thrombocytopenia Plan: Cont present cardiac regimen. Overall poor prognosis. The patient has been seen in conjunction with Dr. Bradley who agrees with the assessment and plan of care. Subjective Date of service: 04/28/18 Principal diagnosis: Staph bacteremia Interval history: pt resting in bed, remains lethargic, daughter at bedside. s/p PICC placement this AM. Objective Last Vital Signs Temp 101 F H 04/28/18 08:00 Pulse 95 H 04/28/18 09:51 Resp 28 H 04/28/18 09:51 BP 105/50 04/28/18 09:51 Pulse Ox 98 04/28/18 09:51 - Physical Examination General: Other (lethargic) Neck: Positive: neck supple Cardiac: Positive: Reg Rate and Rhythm, S1/S2 Lungs: Positive: Decreased Breath Sounds, Rhonchi Neuro: Positive: Other (lethargic) Abdomen: Positive: Active Bowel Sounds Skin: Positive: Other (decubitus sacral ulcer). Negative: Rash Extremities: Absent: edema - Labs and Meds CBC 04/28/18 Range/Units Unknown WBC 9.7 (4.5-11.0) K/mm3 RBC 3.41 L (3.65-5.03) M/mm3 Hgb 9.0 L (10.1-14.3) gm/dl Hct 28.8 L (30.3-42.9) % Plt Count 67 L (140-440) K/mm3 Lymph # 0.7 L (1.2-5.4) K/mm3 [place] # 0.2 (0.0-0.8) K/mm3 Eos # 0.0 (0.0-0.4) K/mm3 Baso # 0.0 (0.0-0.1) K/mm3 Comprehensive Metabolic Panel 04/27/18 04/27/18 04/28/18 Range/Units 12:04 20:07 Unknown Sodium 157 H 157 H (137-145) mmol/L Potassium 2.4 L* 3.1 L D 3.5 L (3.6-5.0) mmol/L Chloride 116.4 H 120.1 H (98-107) mmol/L Carbon Dioxide 24 25 (22-30) mmol/L BUN 22 H 25 H (7-17) mg/dL Creatinine 0.8 1.0 (0.7-1.2) mg/dL Glucose 227 H 268 H (65-100) mg/dL Calcium 7.6 L 7.4 L (8.4-10.2) mg/dL - Imaging and Cardiology EKG: report reviewed (Sinus Tach 114/min)
[2018-04-28] MEDS: LOPRESSOR PO SCH (12:40)
--- NOTE | 2018-04-28 12:51 | Progress Note ---
Subjective Date of service: 04/28/18 Principal diagnosis: Staph bacteremia Objective Vital Signs - 12hr 04/28/18 04/28/18 04/28/18 01:40 03:17 07:41 Temperature 99.9 F H 101.0 F H Pulse Rate 101 H 101 H Pulse Rate [ 75 Right Lower Lobe] Respiratory 18 18 Rate Respiratory 16 Rate [Right Lower Lobe] Blood Pressure 108/53 102/45 Blood Pressure [Right] O2 Sat by Pulse 100 91 Oximetry 04/28/18 04/28/18 04/28/18 07:42 08:00 09:51 Temperature 101 F H Pulse Rate 95 H 95 H Pulse Rate [ Right Lower Lobe] Respiratory 28 H Rate Respiratory Rate [Right Lower Lobe] Blood Pressure Blood Pressure 102/45 105/50 [Right] O2 Sat by Pulse 91 98 Oximetry Constitutional: lethargic Eyes: non-icteric Ascultation: Bilateral: diminished breath sounds CBC and BMP: 04/28/18 Unknown 04/28/18 Unknown ABG, PT/INR, D-dimer: ABG POC ABG pH 7.470 (7.35-7.45) H 04/23/18 16:44 POC ABG pCO2 42.7 (35-45) 04/23/18 16:44 POC ABG pO2 156 (80-105) H 04/23/18 16:44 POC ABG HCO3 31.1 04/23/18 16:44 POC ABG Total CO2 32 04/23/18 16:44 POC ABG O2 Sat 99 04/23/18 16:44 PT/INR, D-dimer PT 18.8 Sec. (12.2-14.9) H 04/23/18 16:04 INR 1.48 (0.87-1.13) H 04/23/18 16:04 Abnormal lab findings: Abnormal Labs 04/23/18 04/23/18 04/23/18 15:40 16:04 16:04 WBC 24.9 H RBC Hgb Hct MCH 26 L RDW 16.6 H Plt Count Lymph % (Auto) Lymph # Seg Neutrophils % Seg Neuts % (Manual) 97.0 H Lymphocytes % (Manual) 1.5 L Seg Neutrophils # Seg Neutrophils # Man 24.2 H Lymphocytes # (Manual) 0.4 L PT 18.8 H INR 1.48 H POC ABG pH POC ABG pO2 VBG pH Sodium Potassium Chloride BUN Creatinine Glucose POC Glucose Lactic Acid Calcium Magnesium Total Bilirubin AST Alkaline Phosphatase C-Reactive Protein NT-Pro-B Natriuret Pep Total Protein Albumin Urine WBC (Auto) > 182.0 H 04/23/18 04/23/18 04/23/18 16:04 16:04 16:04 WBC RBC Hgb Hct MCH RDW Plt Count Lymph % (Auto) Lymph # Seg Neutrophils % Seg Neuts % (Manual) Lymphocytes % (Manual) Seg Neutrophils # Seg Neutrophils # Man Lymphocytes # (Manual) PT INR POC ABG pH POC ABG pO2 VBG pH 7.308 L Sodium Potassium Chloride 95.6 L BUN 24 H Creatinine 1.6 H Glucose 162 H POC Glucose Lactic Acid 8.80 H* Calcium Magnesium Total Bilirubin 1.90 H AST 68 H Alkaline Phosphatase 253 H C-Reactive Protein NT-Pro-B Natriuret Pep Total Protein 5.8 L Albumin 1.9 L Urine WBC (Auto) 04/23/18 04/23/18 04/23/18 16:04 16:44 23:03 WBC RBC Hgb Hct MCH RDW Plt Count Lymph % (Auto) Lymph # Seg Neutrophils % Seg Neuts % (Manual) Lymphocytes % (Manual) Seg Neutrophils # Seg Neutrophils # Man Lymphocytes # (Manual) PT INR POC ABG pH 7.470 H POC ABG pO2 156 H VBG pH Sodium Potassium Chloride BUN Creatinine Glucose POC Glucose 158 H Lactic Acid Calcium Magnesium Total Bilirubin AST Alkaline Phosphatase C-Reactive Protein NT-Pro-B Natriuret Pep 00456 H Total Protein Albumin Urine WBC (Auto) 04/23/18 04/24/18 04/24/18 23:08 12:36 15:38 WBC RBC Hgb Hct MCH RDW Plt Count Lymph % (Auto) Lymph # Seg Neutrophils % Seg Neuts % (Manual) Lymphocytes % (Manual) Seg Neutrophils # Seg Neutrophils # Man Lymphocytes # (Manual) PT INR POC ABG pH POC ABG pO2 VBG pH Sodium Potassium Chloride BUN Creatinine Glucose POC Glucose 109 H 110 H Lactic Acid 3.00 H* Calcium Magnesium Total Bilirubin AST Alkaline Phosphatase C-Reactive Protein NT-Pro-B Natriuret Pep Total Protein Albumin Urine WBC (Auto) 04/24/18 04/24/18 04/25/18 18:24 18:24 06:38 WBC 17.4 H 15.7 H RBC Hgb 9.9 L Hct MCH 26 L 26 L RDW 16.5 H 16.6 H Plt Count 135 L Lymph % (Auto) 7.8 L Lymph # Seg Neutrophils % 89.0 H Seg Neuts % (Manual) 95.0 H Lymphocytes % (Manual) 1.0 L Seg Neutrophils # 15.5 H Seg Neutrophils # Man 14.9 H Lymphocytes # (Manual) 0.2 L PT INR POC ABG pH POC ABG pO2 VBG pH Sodium Potassium 3.5 L Chloride BUN 26 H Creatinine Glucose POC Glucose Lactic Acid Calcium 8.1 L Magnesium Total Bilirubin 1.40 H AST Alkaline Phosphatase 203 H C-Reactive Protein NT-Pro-B Natriuret Pep Total Protein 5.4 L Albumin 1.6 L Urine WBC (Auto) 04/25/18 04/25/18 04/25/18 06:38 10:08 22:37 WBC RBC Hgb Hct MCH RDW Plt Count Lymph % (Auto) Lymph # Seg Neutrophils % Seg Neuts % (Manual) Lymphocytes % (Manual) Seg Neutrophils # Seg Neutrophils # Man Lymphocytes # (Manual) PT INR POC ABG pH POC ABG pO2 VBG pH Sodium 150 H Potassium 3.0 L Chloride 107.9 H BUN 24 H Creatinine Glucose 58 L POC Glucose 69 L Lactic Acid Calcium 7.7 L Magnesium 1.60 L Total Bilirubin 1.30 H AST Alkaline Phosphatase 166 H C-Reactive Protein 25.70 H NT-Pro-B Natriuret Pep Total Protein 4.8 L Albumin 1.5 L Urine WBC (Auto) 04/26/18 04/26/18 04/27/18 10:49 21:06 01:39 WBC RBC Hgb Hct MCH RDW Plt Count Lymph % (Auto) Lymph # Seg Neutrophils % Seg Neuts % (Manual) Lymphocytes % (Manual) Seg Neutrophils # Seg Neutrophils # Man Lymphocytes # (Manual) PT INR POC ABG pH POC ABG pO2 VBG pH Sodium Potassium Chloride BUN Creatinine Glucose POC Glucose 233 H 301 H 262 H Lactic Acid Calcium Magnesium Total Bilirubin AST Alkaline Phosphatase C-Reactive Protein NT-Pro-B Natriuret Pep Total Protein Albumin Urine WBC (Auto) 04/27/18 04/27/18 04/27/18 06:42 11:40 12:04 WBC RBC Hgb Hct MCH RDW Plt Count Lymph % (Auto) Lymph # Seg Neutrophils % Seg Neuts % (Manual) Lymphocytes % (Manual) Seg Neutrophils # Seg Neutrophils # Man Lymphocytes # (Manual) PT INR POC ABG pH POC ABG pO2 VBG pH Sodium 157 H Potassium 2.4 L* Chloride 116.4 H BUN 22 H Creatinine Glucose 227 H POC Glucose 226 H 190 H Lactic Acid Calcium 7.6 L Magnesium Total Bilirubin AST Alkaline Phosphatase C-Reactive Protein NT-Pro-B Natriuret Pep Total Protein Albumin Urine WBC (Auto) 04/27/18 04/27/18 04/27/18 18:32 20:07 23:50 WBC RBC Hgb Hct MCH RDW Plt Count Lymph % (Auto) Lymph # Seg Neutrophils % Seg Neuts % (Manual) Lymphocytes % (Manual) Seg Neutrophils # Seg Neutrophils # Man Lymphocytes # (Manual) PT INR POC ABG pH POC ABG pO2 VBG pH Sodium Potassium 3.1 L D Chloride BUN Creatinine Glucose POC Glucose 331 H 266 H Lactic Acid Calcium Magnesium Total Bilirubin AST Alkaline Phosphatase C-Reactive Protein NT-Pro-B Natriuret Pep Total Protein Albumin Urine WBC (Auto) 04/28/18 04/28/18 04/28/18 06:36 11:34 Unknown WBC RBC 3.41 L Hgb 9.0 L Hct 28.8 L MCH 27 L RDW 16.6 H Plt Count 67 L Lymph % (Auto) 7.6 L Lymph # 0.7 L Seg Neutrophils % 90.0 H Seg Neuts % (Manual) Lymphocytes % (Manual) Seg Neutrophils # 8.8 H Seg Neutrophils # Man Lymphocytes # (Manual) PT INR POC ABG pH POC ABG pO2 VBG pH Sodium Potassium Chloride BUN Creatinine Glucose POC Glucose 280 H 288 H Lactic Acid Calcium Magnesium Total Bilirubin AST Alkaline Phosphatase C-Reactive Protein NT-Pro-B Natriuret Pep Total Protein Albumin Urine WBC (Auto) 04/28/18 Unknown WBC RBC Hgb Hct MCH RDW Plt Count Lymph % (Auto) Lymph # Seg Neutrophils % Seg Neuts % (Manual) Lymphocytes % (Manual) Seg Neutrophils # Seg Neutrophils # Man Lymphocytes # (Manual) PT INR POC ABG pH POC ABG pO2 VBG pH Sodium 157 H Potassium 3.5 L Chloride 120.1 H BUN 25 H Creatinine Glucose 268 H POC Glucose Lactic Acid Calcium 7.4 L Magnesium Total Bilirubin AST Alkaline Phosphatase C-Reactive Protein NT-Pro-B Natriuret Pep Total Protein Albumin Urine WBC (Auto)
[2018-04-28] MEDS: NEURONTIN PO SCH ×2 (13:16→22:00)
[2018-04-28] MEDS: PLAVIX PO SCH (13:16)
[2018-04-28] MEDS: PEPCID PO SCH (13:16)
[2018-04-28] MEDS: BABY ASPIRIN PO SCH (13:20)
[2018-04-28] MEDS: SODIUM CHLORIDE FLUSH SYRINGE 10 ML IV SCH (13:32)
[2018-04-28] MEDS: predniSONE FEEDTUBE SCH (15:38)
[2018-04-28] MEDS: K-DUR PO SCH (15:40)
[2018-04-28 15:50] LABS: Creatinine,Urine 30.5 mg/dL (0.1-20.0)
[2018-04-28] MEDS: POTASSIUM CHLORIDE FEEDTUBE SCH ×2 (16:07→22:00)
[2018-04-28] MEDS: MORPHINE IV PRN (18:59)
[2018-04-28] MEDS: LOVENOX SUB-Q SCH (22:00)
[2018-04-29] MEDS: PROVENTIL IH SCH ×4 (02:03→13:36)
[2018-04-29 05:05] LABS: Hematocrit 24.8 % (30.3-42.9); Hemoglobin 7.9 gm/dl (10.1-14.3); Mean Corpuscular HGB Conc 32 % (30-34); Mean Corpuscular Hemoglobin 27 pg (28-32); Mean Corpuscular Volume 83 fl (79-97); Platelet Count 73 K/mm3 (140-440); Red Blood Count 2.98 M/mm3 (3.65-5.03); Red Cell Distribution Width 16.7 % (13.2-15.2)
[2018-04-29 05:14] LABS: Calcium 7.5 mg/dL (8.4-10.2)
[2018-04-29 07:21] LABS: Basophils % (Manual) 0 % (0.0-1.8); Eosinophils % (Manual) 0 % (0.0-4.3); Total Cells Counted 100
[2018-04-29 07:22] LABS: Anisocytosis 1+; Band Neutrophils # (Manual) 0.9 K/mm3; Hypochromasia 1+; Platelet Estimate Consistent w Auto
[2018-04-29 07:32] LABS: Basophils % (Auto) 0.1 % (0.0-1.8); Eosinophils % (Auto) 0.2 % (0.0-4.3); Hematocrit 24.4 % (30.3-42.9); Hemoglobin 7.7 gm/dl (10.1-14.3); Lymphocytes % (Auto) 8.4 % (13.4-35.0); Mean Corpuscular HGB Conc 32 % (30-34); Mean Corpuscular Hemoglobin 27 pg (28-32); Mean Corpuscular Volume 84 fl (79-97); Monocytes # (Auto) 0.2 K/mm3 (0.0-0.8); Red Blood Count 2.89 M/mm3 (3.65-5.03); Red Cell Distribution Width 16.9 % (13.2-15.2)
[2018-04-29 07:35] LABS: Platelet Count 78 K/mm3 (140-440)
[2018-04-29 07:54] LABS: Calcium 7.3 mg/dL (8.4-10.2)
--- NOTE | 2018-04-29 08:00 | Event Note ---
Date: 04/29/18 Pt has deteriorated and become hypotensive and more tachypneic. D/W the son ( Ursula) who is the decision maker for the family that they want nothing done and to initiate DNR
[2018-04-29 08:12] VITALS: BP 80/11
--- NOTE | 2018-04-29 09:15 | XRay Report ---
Single view chest: Compared to 04/28/18. History: Right pneumothorax. Findings: There is persistence of hydropneumothorax noted on the right side. No significant interval change. No consolidation. Suspected minimal left pleural effusion. Stable support system and Impression: No significant interval change. Stable support system
--- NOTE | 2018-04-29 09:52 | Progress Note ---
Assessment and Plan Assessment and plan: --Acute hypoxemic respiratory failure. Etiology is multifactorial secondary to pneumothorax, systolic CHF, sarcoidosis and pneumonia. Patient appears to be more tachypnea this morning. Pulmonary following. --Bilateral pneumonia. Continue antibiotics per ID. --Right pneumothorax (25%) IR plans to have follow-up with serial chest x-ray and continue conservative treatment. Patient is more tachypniec. I will defer to Dr. Cho with regards to placement of chest tube. --Staph aureus bacteremia; 1:2 blood cultures,ID following Cefazolin per ID. Continue 2 g IV every 8 hours for total of 14 days until . --Stage IV decubitus ulcer; wound care,IV antibiotics Surgery following, possible surgical debridement if needed --Sepsis;due to UTI Continue Vanco and Zosyn, follow cultures --Lactic acidosis; secondary to sepsis Continue current management --Metabolic encephalopathy; probably due to sepsis Patient is noncommunicative --Acute on chronic systolic congestive heart failure; EF 15-20% (04/24/18) Continue anti-failure medications, cardiology consultation pending --Ischemic Cardiomyopathy. H/o recent STEMI on 10/06/2017 - [facility] showed triple vessel CAD and severe lv systolic dysfunction with EF 25%, pt declined re-do CABG at [place] --Severe MR/TR --Hypokalemia Replete potassium as needed --Sarcoidosis Resume home prednisone 5 mg daily. --Rheumatoid arthritis --History of coronary artery disease status post CABG; continue current cardiac medications, cardiology consultation pending --Severe malnutrition/hypoalbuminemia; nutrition supplement and supportive care, Nutrition consult poor oral intake, discussed with her daughter, agreed for [place]obb[place] feeding Patient may need PEG placement at some point --Code status discussed son Ursula at bedside who states the family would like DO NOT RESUSCITATE --DNR Patient is critically ill with poor prognosis Plan of care reviewed with the patient's son at the bedside and her nurse Disposition; follow consultations and recommendations Poor prognosis. I discuss possibility of hospice with the family. History Interval history: 72-year-old female patient with significant history of congestive heart failure and diabetes mellitus sacral decubitus ulcers was admitted through emergency room with altered level of consciousness and failure to thrive with poor oral intake. Patient is being symptomatically managed with empiric antibiotics, surgery evaluated the patient, possible surgical debridement if needed, blood cultures 1;2 positive for staph aureus Patient also noted incidental finding on CT scan of 25% right pneumothorax. Patient is hypotensive and more tachypnea this morning. Hospitalist Physical - Constitutional Vitals: Temp Pulse Resp BP Pulse Ox 99.7 F H 130 H 17 80/11 94 04/29/18 07:22 04/29/18 07:22 04/29/18 07:22 04/29/18 07:22 04/29/18 07:22 General appearance: Present: severe distress, cachectic - EENT Eyes: Present: PERRL, EOM intact ENT: hearing intact, clear oral mucosa, dentition normal - Neck Neck: Present: supple, normal ROM - Respiratory Respiratory effort: normal Respiratory: bilateral: CTA - Cardiovascular Rhythm: regular Heart Sounds: Present: S1 & S2. Absent: gallop, rub - Extremities Extremities: no ischemia, No edema, Full ROM - Abdominal General gastrointestinal: soft, non-tender, non-distended, normal bowel sounds - Integumentary Integumentary: Present: clear, warm, dry - Neurologic Neurologic: CNII-XII intact, moves all extremities Results - Labs CBC & Chem 7: 04/29/18 07:20 04/29/18 07:20 Labs: Laboratory Last Values WBC 12.4 K/mm3 (4.5-11.0) H 04/29/18 07:20 RBC 2.89 M/mm3 (3.65-5.03) L 04/29/18 07:20 Hgb 7.7 gm/dl (10.1-14.3) L 04/29/18 07:20 Hct 24.4 % (30.3-42.9) L 04/29/18 07:20 MCV 84 fl (79-97) 04/29/18 07:20 MCH 27 pg (28-32) L 04/29/18 07:20 MCHC 32 % (30-34) 04/29/18 07:20 RDW 16.9 % (13.2-15.2) H 04/29/18 07:20 Plt Count 78 K/mm3 (140-440) L 04/29/18 07:20 Lymph % (Auto) 8.4 % (13.4-35.0) L 04/29/18 07:20 Wallace % (Auto) 2.0 % (0.0-7.3) 04/29/18 07:20 Eos % (Auto) 0.2 % (0.0-4.3) 04/29/18 07:20 Baso % (Auto) 0.1 % (0.0-1.8) 04/29/18 07:20 Lymph # 1.0 K/mm3 (1.2-5.4) L 04/29/18 07:20 Wallace # 0.2 K/mm3 (0.0-0.8) 04/29/18 07:20 Eos # 0.0 K/mm3 (0.0-0.4) 04/29/18 07:20 Baso # 0.0 K/mm3 (0.0-0.1) 04/29/18 07:20 Add Manual Diff Complete 04/29/18 04:30 Total Counted 100 04/29/18 04:30 Seg Neutrophils % 89.3 % (40.0-70.0) H 04/29/18 07:20 Seg Neuts % (Manual) 86.0 % (40.0-70.0) H 04/29/18 04:30 Band Neutrophils % 8.0 % 04/29/18 04:30 Lymphocytes % (Manual) 2.0 % (13.4-35.0) L 04/29/18 04:30 Reactive Lymphs % (Man) 0 % 04/29/18 04:30 Monocytes % (Manual) 4.0 % (0.0-7.3) 04/29/18 04:30 Eosinophils % (Manual) 0 % (0.0-4.3) 04/29/18 04:30 Basophils % (Manual) 0 % (0.0-1.8) 04/29/18 04:30 Metamyelocytes % 0 % 04/29/18 04:30 Myelocytes % 0 % 04/29/18 04:30 Promyelocytes % 0 % 04/29/18 04:30 Blast Cells % 0 % 04/29/18 04:30 Nucleated RBC % Not Reportable 04/29/18 04:30 Seg Neutrophils # 11.0 K/mm3 (1.8-7.7) H 04/29/18 07:20 Seg Neutrophils # Man 10.1 K/mm3 (1.8-7.7) H 04/29/18 04:30 Band Neutrophils # 0.9 K/mm3 04/29/18 04:30 Lymphocytes # (Manual) 0.2 K/mm3 (1.2-5.4) L 04/29/18 04:30 Abs React Lymphs (Man) 0.0 K/mm3 04/29/18 04:30 Monocytes # (Manual) 0.5 K/mm3 (0.0-0.8) 04/29/18 04:30 Eosinophils # (Manual) 0.0 K/mm3 (0.0-0.4) 04/29/18 04:30 Basophils # (Manual) 0.0 K/mm3 (0.0-0.1) 04/29/18 04:30 Metamyelocytes # 0.0 K/mm3 04/29/18 04:30 Myelocytes # 0.0 K/mm3 04/29/18 04:30 Promyelocytes # 0.0 K/mm3 04/29/18 04:30 Blast Cells # 0.0 K/mm3 04/29/18 04:30 WBC Morphology Not Reportable 04/29/18 04:30 Hypersegmented Neuts Not Reportable 04/29/18 04:30 Hyposegmented Neuts Not Reportable 04/29/18 04:30 Hypogranular Neuts Not Reportable 04/29/18 04:30 Smudge Cells Not Reportable 04/29/18 04:30 Toxic Granulation Not Reportable 04/29/18 04:30 Toxic Vacuolation Not Reportable 04/29/18 04:30 Dohle Bodies Not Reportable 04/29/18 04:30 Pelger-Huet Anomaly Not Reportable 04/29/18 04:30 Rocío Rods Not Reportable 04/29/18 04:30 Platelet Estimate Consistent w auto 04/29/18 04:30 Clumped Platelets Not Reportable 04/29/18 04:30 Plt Clumps, EDTA Not Reportable 04/29/18 04:30 Large Platelets Not Reportable 04/29/18 04:30 Giant Platelets Not Reportable 04/29/18 04:30 Platelet Satelliting Not Reportable 04/29/18 04:30 Plt Morphology Comment Not Reportable 04/29/18 04:30 RBC Morphology Not Reportable 04/29/18 04:30 Dimorphic RBCs Not Reportable 04/29/18 04:30 Polychromasia Not Reportable 04/29/18 04:30 Hypochromasia 1+ 04/29/18 04:30 Poikilocytosis Not Reportable 04/29/18 04:30 Anisocytosis 1+ 04/29/18 04:30 Microcytosis Not Reportable 04/29/18 04:30 Macrocytosis Not Reportable 04/29/18 04:30 Spherocytes Not Reportable 04/29/18 04:30 Pappenheimer Bodies Not Reportable 04/29/18 04:30 Sickle Cells Not Reportable 04/29/18 04:30 Target Cells Not Reportable 04/29/18 04:30 Tear Drop Cells Not Reportable 04/29/18 04:30 Ovalocytes Not Reportable 04/29/18 04:30 Helmet Cells Not Reportable 04/29/18 04:30 Tanner-Erhard Bodies Not Reportable 04/29/18 04:30 [place] Rings Not Reportable 04/29/18 04:30 [place] Cells Not Reportable 04/29/18 04:30 Bite Cells Not Reportable 04/29/18 04:30 Crenated Cell Not Reportable 04/29/18 04:30 Elliptocytes Not Reportable 04/29/18 04:30 Acanthocytes (Spur) Not Reportable 04/29/18 04:30 Rouleaux Not Reportable 04/29/18 04:30 Hemoglobin C Crystals Not Reportable 04/29/18 04:30 Schistocytes Not Reportable 04/29/18 04:30 Malaria parasites Not Reportable 04/29/18 04:30 Trev Bodies Not Reportable 04/29/18 04:30 Hem Pathologist Commnt No 04/29/18 04:30 PT 18.8 Sec. (12.2-14.9) H 04/23/18 16:04 INR 1.48 (0.87-1.13) H 04/23/18 16:04 POC ABG pH 7.470 (7.35-7.45) H 04/23/18 16:44 POC ABG pCO2 42.7 (35-45) 04/23/18 16:44 POC ABG pO2 156 (80-105) H 04/23/18 16:44 POC ABG HCO3 31.1 04/23/18 16:44 POC ABG Total CO2 32 04/23/18 16:44 POC ABG O2 Sat 99 04/23/18 16:44 POC ABG Base Excess 7 04/23/18 16:44 VBG pH 7.308 (7.320-7.420) L 04/23/18 16:04 FiO2 36 % 04/23/18 16:44 Sodium 157 mmol/L (137-145) H 04/29/18 07:20 Potassium 3.7 mmol/L (3.6-5.0) 04/29/18 07:20 Chloride 121.5 mmol/L (98-107) H 04/29/18 07:20 Carbon Dioxide 24 mmol/L (22-30) 04/29/18 07:20 Anion Gap 15 mmol/L 04/29/18 07:20 BUN 33 mg/dL (7-17) H 04/29/18 07:20 Creatinine 1.3 mg/dL (0.7-1.2) H 04/29/18 07:20 Estimated GFR 49 ml/min 04/29/18 07:20 BUN/Creatinine Ratio 25 % 04/29/18 07:20 Glucose 244 mg/dL (65-100) H 04/29/18 07:20 POC Glucose 294 (70-105) H 04/29/18 06:15 Hemoglobin A1c 5.4 % (4-6) 04/23/18 23:13 Lactic Acid 1.80 mmol/L (0.7-2.0) 04/24/18 18:24 Calcium 7.3 mg/dL (8.4-10.2) L 04/29/18 07:20 Phosphorus 2.60 mg/dL (2.5-4.5) 04/25/18 06:38 Magnesium 2.10 mg/dL (1.7-2.3) 04/28/18 Unknown Total Bilirubin 1.30 mg/dL (0.1-1.2) H 04/25/18 06:38 AST 23 units/L (5-40) 04/25/18 06:38 ALT 12 units/L (7-56) 04/25/18 06:38 Alkaline Phosphatase 166 units/L (35-129) H 04/25/18 06:38 C-Reactive Protein 25.70 mg/dL (0.00-1.30) H 04/25/18 22:37 NT-Pro-B Natriuret Pep 76414 pg/mL (0-900) H 04/23/18 16:04 Total Protein 4.8 g/dL (6.3-8.2) L 04/25/18 06:38 Albumin 1.5 g/dL (3.9-5) L 04/25/18 06:38 Albumin/Globulin Ratio 0.5 % 04/25/18 06:38 TSH 1.830 mlU/mL (0.270-4.200) 04/23/18 14:25 Urine Color [place] (Yellow) 04/23/18 15:40 Urine Turbidity Clear (Clear) 04/23/18 15:40 Urine pH 5.0 (5.0-7.0) 04/23/18 15:40 Ur Specific [place] 1.017 (1.003-1.030) 04/23/18 15:40 Urine Protein 100 mg/dl mg/dL (Negative) 04/23/18 15:40 Urine Glucose (UA) Neg mg/dL (Negative) 04/23/18 15:40 Urine Ketones Neg mg/dL (Negative) 04/23/18 15:40 Urine Blood Sm (Negative) 04/23/18 15:40 Urine Nitrite Neg (Negative) 04/23/18 15:40 Urine Bilirubin Neg (Negative) 04/23/18 15:40 Urine Urobilinogen 2.0 mg/dL (<2.0) 04/23/18 15:40 Ur Leukocyte Esterase Mod (Negative) 04/23/18 15:40 Urine WBC (Auto) > 182.0 /HPF (0.0-6.0) H 04/23/18 15:40 Urine RBC (Auto) 17.0 /HPF (0.0-6.0) 04/23/18 15:40 U Epithel Cells (Auto) 8.0 /HPF (0-13.0) 04/23/18 15:40 Urine Bacteria (Auto) 4+ /HPF (Negative) 04/23/18 15:40 Urine WBC Clumps 3+ /HPF 04/23/18 15:40 Urine Mucus Few /HPF 04/23/18 15:40 Urine Osmolality 362 Mosm/kg 04/28/18 Unknown Urine Creatinine 30.5 mg/dL (0.1-20.0) H 04/28/18 Unknown Urine Sodium 59 mmol/L 04/28/18 Unknown Urine Opiates Screen Presumptive negative 04/23/18 15:40 Urine Methadone Screen Presumptive positive 04/23/18 15:40 Ur Barbiturates Screen Presumptive negative 04/23/18 15:40 Ur Phencyclidine Scrn Presumptive negative 04/23/18 15:40 Ur Amphetamines Screen Presumptive negative 04/23/18 15:40 U Benzodiazepines Scrn Presumptive negative 04/23/18 15:40 Urine Cocaine Screen Presumptive negative 04/23/18 15:40 U Marijuana (THC) Screen Presumptive negative 04/23/18 15:40 Drugs of Abuse Note Disclamer 04/23/18 15:40 Plasma/Serum Alcohol < 0.01 % (0-0.07) 04/23/18 17:09
--- NOTE | 2018-04-29 11:44 | Progress Note ---
Assessment and Plan Hypernatremia secondary to poor water intake: - Sodium level 157 today - Will start D5W@75 ml/hr - On free water flushes 250ml every 4 hrs - Serial sodium checks every 6 hours - Urine osmo-362, Urine creatinine 30.5 - Strict I&O monitoring Hypokalemia: - On Kcl 20 meq BID via NGT MSSA Bacteremia: UTI: - On IV Cefazolin Acute Hypoxemia Respiratory Failure: Bilateral pneumonia: - IR following for pneumothorax, no chest tube for now, improving Acute on chronic systolic congestive heart failure; EF 15-20%: - On Lasix 40 mg IV daily - As per Cardiology Stage IV decubitus ulcer Surgery following, possible surgical debridement if needed Metabolic encephalopathy - possibly secondary to sepsis Severe malnutrition/hypoalbuminemia; - TF via NGT -Patient may need PEG placement at some point Subjective Date of service: 04/29/18 Principal diagnosis: Staph bacteremia Objective - Vital Signs Vital signs: Vital Signs - 12hr 04/29/18 04/29/18 04/29/18 01:29 02:03 07:22 Temperature 99.9 F H 99.7 F H Pulse Rate 139 H 130 H Pulse Rate [ 22 L Right Lower Lobe] Respiratory 20 17 Rate Blood Pressure 89/50 80/11 O2 Sat by Pulse 90 94 Oximetry - Lab 04/29/18 07:20 04/29/18 07:20 Most recent lab results Calcium 7.3 mg/dL (8.4-10.2) L 04/29/18 07:20 Phosphorus 2.60 mg/dL (2.5-4.5) 04/25/18 06:38 Magnesium 2.10 mg/dL (1.7-2.3) 04/28/18 Unknown Urine Creatinine 30.5 mg/dL (0.1-20.0) H 04/28/18 Unknown Urine Sodium 59 mmol/L 04/28/18 Unknown
[2018-04-29] MEDS: BABY ASPIRIN PO SCH (12:00)
[2018-04-29] MEDS: LOPRESSOR PO SCH (12:00)
[2018-04-29] MEDS: HumuLIN R SUB-Q SCH (12:01)
[2018-04-29] MEDS: SODIUM CHLORIDE FLUSH SYRINGE 10 ML IV SCH (12:01)
[2018-04-29] MEDS: COZAAR PO SCH (12:02)
[2018-04-29] MEDS: PEPCID PO SCH (12:02)
[2018-04-29] MEDS: NEURONTIN PO SCH (12:02)
[2018-04-29] MEDS: LASIX IV SCH (12:02)
[2018-04-29] MEDS: POTASSIUM CHLORIDE FEEDTUBE SCH (12:03)
[2018-04-29] MEDS: PLAVIX PO SCH (12:03)
[2018-04-29] MEDS: predniSONE FEEDTUBE SCH (12:03)
--- NOTE | 2018-04-29 12:51 | Death Summary ---
Summary - Providers Date of service: 04/29/18 Consults: 04/23/18 23:07 Consult to Wound/ET Nurse [CONS] Routine Reason For Exam: wound eval 04/24/18 07:18 Consult to Physician [CONS] Routine Comment: Consulting Provider: JAMIE RODRIGUEZ Physician Instructions: Reason For Exam: Sacral decub ulcer 04/25/18 08:24 Consult to Dietitian/Nutrition [CONS] Routine Physician Instructions: Reason For Exam: severe malnutrition Reason for Consult: Malnutrition 04/25/18 08:39 Consult to Dietitian/Nutrition [CONS] Routine Physician Instructions: Assess nutrtn needs, initiate, modify, manage TF Reason For Exam: Reason for Consult: Write/Manage Tube Feeding Reason for Consult: Write/Manage Tube Feeding 04/25/18 09:07 Consult to Physician [CONS] Routine Comment: Consulting Provider: CAMI ARMSTRONG Physician Instructions: Reason For Exam: Staph aureus bacteremia 04/27/18 10:16 Consult to Case Management [CONS] Stat Services Needed at Discharge: Other Notified:: 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 Remove PICC line after last dose unless otherwise instructed. Lines: PICC Lab monitoring: CBC, BMP, CRP once a week preferly on Wednesday morning. Please fax results to [phone] and call [phone] for critical lab results. Cami Maldonado Date: 04/27/18 04/27/18 10:17 Consult to PICC Line RN [CONS] Stat Reason For Exam: IV antibiotics Type Line:: PICC 04/27/18 11:12 Consult to Interventional Radiology [CONS] Routine Consulting Provider: JOEL ONEAL Reason For Exam: PTX, chest tube Place consult to:: Notified:: Phone number called:: [phone] Was contact made?: Yes If yes, spoke with:: MISTI Time called:: 11:45 Comment:: AGUSTÍN 04/27/18 11:13 Consult to Physician [CONS] Routine Comment: Consulting Provider: KEREN MIRAMONTES Physician Instructions: Reason For Exam: PTX 04/27/18 11:16 Consult to Cardiology [CONS] Routine Consulting Provider: CORRINE VILLANUEVA Reason For Exam: systolic HF 04/27/18 12:04 Speech Therapy Evaluation and Treat [CONS] Routine Reason For Exam: swallow eval 04/27/18 12:07 Speech Therapy Evaluation and Treat [CONS] Routine Reason For Exam: diet consult 04/28/18 09:49 Consult to Physician [CONS] Routine Comment: Consulting Provider: ANGY HIRSCH Physician Instructions: Reason For Exam: hypernatremia 04/28/18 12:08 Consult to Dietitian/Nutrition [CONS] Routine Physician Instructions: Assess nutrtn needs, initiate, modify, manage TF Reason For Exam: Reason for Consult: Write/Manage Tube Feeding Reason for Consult: Write/Manage Tube Feeding Attending: UMBERTO POE - summary Date of admission: 04/23/18 17:01 Date of : 04/29/18 Reason for admission: Staph aureus bacteremia Disposition: 72 y/o female admitted due to altered mental status and progressive SOB. Patient has been mostly bed ridden since Oct 2016. As per the patient's daughter , the patient has exhibited a constant severe decrease in mental status for 24h prior to admission and anorexia. Per daughter, she developed sacral decubitus while admitted at [facility]. In the ED< temp, 99.1, HR 115, R19, BP 87/56 , WBC 24.9K, Hg 11.1, Plat 247. Creat 1.2. Lactate 1.8. Total bili 1.4. CXR new RLL consolidation. The patient has a significant past medical history for CAD s /p CABG and PCI, recent STEMI on 10/06/2017 - [facility] showed triple vessel CAD and severe lv systolic dysfunction with EF 25%, pt declined re-do CABG at [place], chronic combined systolic and diastolic HF, ICMP, sarcoidosis, rheumatoid arthritis, decubitus sacral ulcer. Since admission, she had been diagnosed with staph aureus bacteremia, sepsis, UTI, lactic acidosis, encephalopathy, malnutrition. Also, She was incidentally found to have right pneumothorax (20%) . Patient was seen by IR in consultation who recommended for conservative management because the patient had no respiratory compromise. The patient was seen by ID in consultation who managed the IV antibiotics and treatment of the sepsis/pneumonia/staph bacteremia. The patient was also seen by cardiology for congestive heart failure. Echocardiogram completed on 04/24/18 revealed EF 15-20 %, LV severely dilated, mild to mod LVH, LA mildly dilated, mod to severe MR, mild AR, mild to mod TR. Unfortunately, patient continued to have overall deterioration and declined hospital stay. This was felt to have a poor prognosis which was conveyed to the family on multiple occasions. On 04/29/18 patient developed respiratory distress and the family opted for DO NOT RESUSCITATE. The patient later and pronounced at 11 AM. Dedicated the summer time 35 minutes. - Final diagnosis (1) Acute lower UTI (urinary tract infection) Note: Final diagnosis: (2) Encephalopathy acute Note: Final diagnosis: (3) Pneumonia Qualifiers: Pneumonia type: due to unspecified organism Laterality: right Lung location: lower lobe of lung Qualified Code(s): J18.1 - Lobar pneumonia, unspecified organism Note: Final diagnosis: (4) Sacral decubitus ulcer Qualifiers: Pressure injury stage: stage 4 Qualified Code(s): L89.154 - Pressure ulcer of sacral region, stage 4 Note: Final diagnosis: (5) Sepsis Qualifiers: Sepsis type: sepsis due to unspecified organism Qualified Code(s): A41.9 - Sepsis, unspecified organism Note: Final diagnosis: (6) Acute on chronic diastolic heart failure Note: Final diagnosis: (7) Cardiomyopathy Note: Final diagnosis: (8) Pulmonary hypertension Note: Final diagnosis: (9) Sarcoidosis Note: Final diagnosis: (10) Type II diabetes mellitus, uncontrolled Note: Final diagnosis:
== END 2018-04-29 11:00 | DRG 871 ==
LOC: ED 13:45 → 4A 17:01 → 2B-ACE 04-25 13:37
PROVIDERS: ADMIT Internal Medicine; ATTEND Hospitalist
PROC: 4A033R1 Measurement of Arterial Saturation, Peripheral, Percutaneous Approach (ICD-10-PCS; principal; 2018-04-23)
PROC: 02HV33Z Insertion of Infusion Device into Superior Vena Cava, Percutaneous Approach (ICD-10-PCS; 2018-04-28)
DX: A41.01 Sepsis due to Methicillin susceptible Staphylococcus aureus (principal); L89.154 Pressure ulcer of sacral region, stage 4; J18.9 Pneumonia, unspecified organism; G93.41 Metabolic encephalopathy; E43 Unspecified severe protein-calorie malnutrition; J96.01 Acute respiratory failure with hypoxia; I50.43 Acute on chronic combined systolic (congestive) and diastolic (congestive) heart failure; R65.21 Severe sepsis with septic shock; N39.0 Urinary tract infection, site not specified; Z68.1 Body mass index [BMI] 19.9 or less, adult; J93.9 Pneumothorax, unspecified; E87.0 Hyperosmolality and hypernatremia; J44.0 Chronic obstructive pulmonary disease with (acute) lower respiratory infection; E86.0 Dehydration; I25.10 Atherosclerotic heart disease of native coronary artery without angina pectoris; M06.9 Rheumatoid arthritis, unspecified; I27.20 Pulmonary hypertension, unspecified; D86.9 Sarcoidosis, unspecified; E11.9 Type 2 diabetes mellitus without complications; I25.5 Ischemic cardiomyopathy; E87.6 Hypokalemia; Z66 Do not resuscitate; E83.42 Hypomagnesemia; D64.9 Anemia, unspecified; D69.6 Thrombocytopenia, unspecified; M19.90 Unspecified osteoarthritis, unspecified site; K21.9 Gastro-esophageal reflux disease without esophagitis; I11.0 Hypertensive heart disease with heart failure; Z86.73 Personal history of transient ischemic attack (TIA), and cerebral infarction without residual deficits; Z95.1 Presence of aortocoronary bypass graft; I25.2 Old myocardial infarction; Z91.041 Radiographic dye allergy status; Z91.018 Allergy to other foods; Z79.82 Long term (current) use of aspirin; Z79.899 Other long term (current) drug therapy; Z87.442 Personal history of urinary calculi
CPT/HCPCS: 36415; 71045; 74018; 74176; 80048; 80053; 80307; 80320; 81001; 82140; 82570; 82803; 82805; 82962; 83036; 83735; 83880; 83935; 84100; 84132; 84295; 84300; 84443; 85007; 85025; 85610; 86140; 86403; 87040; 87086; 87186; 93005; 93010; 93306; 94640; A9270-GY; G0480; J0690; J0692; J0696; J1650; J1815; J1940; J1956; J2060; J2270; J3370; J3475; J7030; J7040; J7050; J7512